=== PATIENT | female | born 1950 | race African-American/Black ===

== ENCOUNTER 2016-11-14 07:04 | Inpatient (IN) ==
--- NOTE | 2016-11-14 07:40 | EKG Report ---
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
[2016-11-14 07:44] LABS: Basophils % 0.4 % (0.0-0.8); Eosinophils # 0.2 10*3/uL (0.0-0.87); Eosinophils % 2.1 % (0.00-10.9); Hematocrit 35.6 VOL% (35.7-47.0); Hemoglobin 11.8 GM/DL (12.0-16.0); Immature Granulocytes % 0.4 %; Immature Granulocytes Absolute 0.04 #; Lymphocytes # 1.1 10*3/uL (1.4-4.0); Lymphocytes % 10.1 % (21.3-54.2); Mean Corpuscular HGB Conc 33.1 GM/DL (32-36); Mean Corpuscular Hemoglobin 32 PG (27-34); Mean Corpuscular Volume 95.2 FL (87-102); Mean Platelet Volume 10.7 FL (9.6-12.0); Monocytes # 0.7 10*3/uL (0.11-0.8); Monocytes % 6.1 % (1.7-12.7); Neutrophils # 9.1 10*3/uL (1.4-7.4); Neutrophils % 80.9 % (38.7-73.9); Platelet Count 207 T/CUMM (130-400); Red Blood Count 3.74 MC/CUMM (3.8-5.5); Red Cell Distribution Width 14.6 % (9.3-17.3); White Blood Count 11.2 T/CUMM (4-12)
--- NOTE | 2016-11-14 08:06 | XRay Report ---
2 view chest. Indication: Chest pain. Shortness of breath. Cough. Comparison: March 12, 2016. The heart is enlarged. There is a calcified granuloma in the left midlung field. The pulmonary vasculature is prominent. The interstitial lung markings are prominent. No definite pleural effusion. Stable osseous structures. Impression: Cardiomegaly, venous congestion, and interstitial edema. PROCEDURE INTERPRETED AT [facility] DEPARTMENT OF RADIOLOGY Final Report Signed by: Dr. Antonia Alfaro
[2016-11-14] MEDS ORDERED: ASPIRIN 325 MG TABLET PO STA (08:10)
[2016-11-14] MEDS ORDERED: ENOXAPARIN 100 MG/ML SYRINGE SUBCUT STA (08:10)
[2016-11-14 08:17] LABS: Alanine Aminotransferase 18 U/L (13-56); Albumin 3.4 G/DL (3.4-5.0); Alkaline Phosphatase 339 U/L (45-117); Aspartate Amino Transferase 33 U/L (0-37); Blood Urea Nitrogen 30 MG/DL (7-18); Calcium 8.1 MG/DL (8.5-10.1); Glucose 183 MG/DL (74-106); Magnesium 3.1 MG/DL (1.8-2.4); Osmolality,Calculated 285.7 MOS/KG (273-304); Potassium 5.4 MMOL/L (3.5-5.1); Sodium 138 MMOL/L (136-145); Total Protein 7.7 G/DL (6.4-8.3); Troponin I Only < 0.015 NG/ML (0.00-0.045)
[2016-11-14] MEDS ORDERED: ENOXAPARIN 120 MG/0.8 ML SYRINGE SUBCUT ONE (08:18)
[2016-11-14] MEDS ORDERED: ASPIRIN 325 MG TABLET ONE (08:19)
--- NOTE | 2016-11-14 08:57 | Emergency Department Note ---
Luis Castano Mantricia, am scribing for, and in the presence of, Charli Turner MD 08:25. Yue Castano Phillip K, MD, personally performed the services described in this documentation, ascribed by Greg Smith in my presence, and it is both accurate and complete [id number] . Arrival - Arrival Chief Complaint: Shortness of Breath Stated Complaint: SOB/tightness in chest ED Nursing Triage Note: PT C/O SHORTNESS OF BREATH, PRODUCTIVE COUGH WITH YELLOW SPUTUM, AND CHEST TIGHTNESS SINCE LAST NIGHT. PT GIVEN ANTIBIOTICS LAST WEEK BY DR TERAN. PT STATES HER B/P HAS BEEN ELEVATED AT DIALYSIS THIS WEEK. PT HAS DIALYSIS TODAY AT 1100. Mode of Arrival: Stretcher Limitations: No Limitations Source: Patient Time Seen by Provider: 11/14/16 07:43 - History of Present Illness HPI Narrative: Pt is a 66 y/o black female arriving o ED with c/o SOB that onset last night. She states that she awaken from her sleep not able to breathe so she had to sit up to get some relief. She also reports a productive cough with yellow sputum, midsternal chest tightness, and N/V. She has a PMHx of CHF, IDDM, and HTN. Pt dialyzes every M// and has an appointment at 1100 to dialyze today. She reports no other complaints to ED. Onset (ago): hour(s) Consistency: constant Allergies/Adverse Reactions: Allergies Allergy/AdvReac Type Severity Reaction Status Date / Time Iodinated Contrast Media - Allergy BLISTER Verified 11/14/16 07:20 Oral and [Iodinated Contrast Media - IV Dye] Home Medications: Home Medications Medication Instructions Recorded Confirmed Type Allopurinol 300 mg PO DAILY 03/12/16 03/12/16 History Amlodipine Besylate 10 mg PO DAILY 03/12/16 03/12/16 History Aspirin [Ecotrin] 81 mg PO DAILY 03/12/16 03/12/16 History Carvedilol [Coreg] 25 mg PO BID 03/12/16 03/12/16 History Cinacalcet [Sensipar] 30 mg PO DAILY 03/12/16 03/12/16 History Gabapentin 100 mg PO TID 03/12/16 03/12/16 History Insulin Aspart Prot/Asp 70/30 18 unit SUBCUT TID 03/12/16 03/12/16 History [NovoLOG Mix 70/30] Omeprazole 20 mg PO DAILY 03/12/16 03/12/16 History Cyn9593/Sod Sulf,Bicarb,Cl/KCl 4,000 ml PO ONCE #1 soln.recon 03/12/16 Rx [Golytely Solution] Sevelamer Carbonate Tab [Renvela 800 mg PO BID 03/12/16 03/12/16 History Tab] Sevelamer Carbonate Tab [Renvela 800 mg PO TID W/MEALS 03/12/16 03/12/16 History Tab] Travoprost 0.004% Oph Soln 1 drop BOTH EYES BEDTIME 03/12/16 03/12/16 History [Travatan Z] metOLazone [Metolazone] 5 mg PO BID 03/12/16 03/12/16 History traMADol TAB [Ultram] 100 mg PO BID 03/12/16 03/12/16 History Review of System - Review of System 12 point system: reviewed and no additional remarkable complaints except as stated - Review of System Constitutional: Absent: chills, diaphoresis Eyes: Absent: discharge, pain Respiratory: Present: cough (with yellow sputum) Cardiovascular: Present: chest pain (tightness), dyspnea on exertion Gastrointestinal: Present: nausea, vomiting. Absent: abdominal pain, diarrhea Medical,Surgical,& Family Hx - Medical History Cardio: History of: Hypertension Endocrine: History of: Diabetes Mellitus (IDDM) Renal: History of: Renal (Kidney) Cancer (CKD), Dialysis (M-W-F), Renal Failure - Surgical History Reproductive Surgeries: Surgical HX of;: Hysterectomy - Social History Smoking Status: Never smoker Frequency of Alcohol Use: None Type of Drug Use: None Exam Vital Signs: Vital Signs Temperature 97.8 F 11/14/16 07:38 Pulse Rate 67 11/14/16 07:38 Respiratory Rate 18 11/14/16 07:38 Blood Pressure 143/63 11/14/16 07:38 O2 Sat by Pulse Oximetry 95 11/14/16 07:16 - General General appearance: alert, in no apparent distress - Head Head exam: Present: atraumatic, normocephalic, normal inspection - Eye Eye exam: Present: normal appearance, PERRL, EOMI - ENT ENT exam: Present: normal exam, normal oropharynx, mucous membranes moist, TM's normal bilaterally, normal external ear exam - Neck Neck exam: Present: normal inspection, full ROM, trachea midline. Absent: tenderness - Chest Chest inspection: Present: normal inspection, symmetric chest wall rise. Absent : tenderness - Respiratory Respiratory exam: Present: rales - Cardiovascular Cardiovascular exam: Present: regular rate, normal heart sounds - Abdominal Exam Abdominal exam: Present: soft, normal bowel sounds. Absent: distention, tenderness, guarding, rebound - Extremities Exam Extremities exam: Present: normal inspection, full ROM, normal capillary refill , other (trace edema bilat LE). Absent: tenderness - Back Exam Back exam: Present: normal inspection, full ROM. Absent: tenderness - Neurological Exam Neurological exam: Present: alert, oriented X3, CN II-XII intact, normal gait, reflexes normal - Psychiatric Psychiatric exam: Present: normal affect, normal mood - Skin Skin exam: Present: warm, dry, intact, normal color Course Course Narrative: Patient discussed with Dr. Teran. Results - Labs CBC & BMP: 11/14/16 07:27 11/14/16 07:27 Lab Results: I have reviewed the patients labs (Cardiac enzymes are negative) - EKG EKG results: interpreted by ERMD, sinus rhythm (Nonspecific ST-T changes inferiorly) - Diagnostic Findings Procedure: Chest x-ray: report reviewed by me (Cardiomegaly, venous congestion, and interstitial edema. ) Disposition Clinical Impression: Chest pain, Congestive heart failure, End stage renal disease on dialysis Case discussed with: patient Disposition: Still a Patient Condition: Guarded Additional Instructions: Admit to Dr. Teran
[2016-11-14] MEDS ORDERED: ACETAMINOPHEN 325 MG TABLET PO PRN (09:01)
[2016-11-14] MEDS ORDERED: ONDANSETRON 4 MG/2 ML VIAL IV PRN (09:01)
--- NOTE | 2016-11-14 11:19 | EKG Report ---
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
--- NOTE | 2016-11-14 12:38 | Internal Med History&Physical ---
Assessment and Plan (1) Chest pain Status: Acute Assessment and plan: 66-year-old female who is admitted to acute care * Chest pain. Patient has pressure type chest pain which has been going on for 2 weeks. She has associated shortness of breath. Her pain is atypical but she has multiple risk factors. She is followed by Dr. Krause. Will consult cardiology to evaluate her. Her initial 2 troponins were negative. Her BNP is elevated. She appears to be in mild fluid overload. Today is her regular dialysis day * Chronic renal failure. On hemodialysis Saturday and Fridays. Will consult Dr. Thien valdez. Her BNP was high. * Diabetes. Will continue her insulin and start her on a sliding scale * Hypertension. Will continue her medication * Obstructive sleep apnea. She has stopped using her CPAP. Will consult Dr. Hewitt * She had upper respiratory infection last week and got some antibiotics. She feels better. * Discussed with the patient Current Visit: Yes (2) Diabetes Status: Acute Current Visit: Yes (3) Hypertension Status: Acute Current Visit: Yes (4) Obstructive sleep apnea Status: Acute Current Visit: Yes (5) Morbid obesity Status: Acute Current Visit: Yes (6) Congestive heart failure Status: Acute Current Visit: Yes (7) End stage renal disease on dialysis Status: Acute Current Visit: Yes History of Present Illness Chief complaint: Chest pressure and shortness of breath History of present illness: Ms. Carney is a 66 year old female with history of multiple medical problems including nonobstructive coronary artery disease, congestive heart failure, hypertension, insulin-dependent diabetes, chronic renal failure on hemodialysis 3 times a week. She presented to the emergency room with chest pressure and pain off and on for 2 weeks. She describes it as somebody sitting on her chest last night. She did not take any medications for it. She is also complaining of coughing up yellowish productive sputum. She was on antibiotics last week. Her blood pressure has been elevated during dialysis this week. She has history of obstructive sleep apnea but stopped using her CPAP about 4 months ago. She states that she was sleeping better and thought that she did not need it anymore. She denies any chest pain on exertion. She denies any nausea vomiting or diarrhea. Home Medications Medication Instructions Recorded Confirmed Type Allopurinol 300 mg PO DAILY 03/12/16 11/14/16 History Amlodipine Besylate 10 mg PO DAILY 03/12/16 11/14/16 History Aspirin [Ecotrin] 81 mg PO DAILY 03/12/16 11/14/16 History Carvedilol [Coreg] 25 mg PO BID 03/12/16 11/14/16 History Cinacalcet [Sensipar] 90 mg PO DAILY 03/12/16 11/14/16 History Gabapentin 100 mg PO TID 03/12/16 11/14/16 History Insulin Aspart Prot/Asp 70/30 18 unit SUBCUT TID 03/12/16 11/14/16 History [NovoLOG Mix 70/30] Omeprazole 20 mg PO DAILY 03/12/16 11/14/16 History Travoprost 0.004% Oph Soln 1 drop BOTH EYES BEDTIME 03/12/16 11/14/16 History [Travatan Z] traMADol TAB [Ultram] 100 mg PO BID PRN 03/12/16 11/14/16 History Furosemide [Furosemide] 80 mg PO BID 11/14/16 11/14/16 History Sevelamer Carbonate Tab [Renvela 3 tablet PO TID W/MEALS 11/14/16 11/14/16 History Tab] Allergies Allergy/AdvReac Type Severity Reaction Status Date / Time Iodinated Contrast Media - Allergy BLISTER Verified 11/14/16 07:20 Oral and [Iodinated Contrast Media - IV Dye] Medical,Surgical,& Family Hx - Medical History Cardio: History of: CHF, CAD (Nonobstructive), Hypertension, Cardiovascular Problems Endocrine: History of: Diabetes Mellitus (IDDM), Dyslipidemia, Endocrine Problems (Morbid obesity) Respiratory: History of: Obstructive Sleep Apnea (Not using CPAP for last 4 months) Renal: History of: Renal (Kidney) Cancer (CKD), Dialysis (M-W-F), Renal Failure Gastrointestinal: History of: GERD - Surgical History Reproductive Surgeries: Surgical HX of;: Hysterectomy - Family History Family History: Reports;: Family Diabetes, Family Heart Disease, Family Hypertension - Social History Smoking Status: Never smoker Frequency of Alcohol Use: None Type of Drug Use: None Functional capacity: independent ambulation 12 point system: reviewed and no additional remarkable complaints except as stated (As mentioned in HPI) Exam - Constitutional Vitals: Period Temp Pulse Resp BP Sys/Parish Pulse Ox Last 24 Hr 97.8 F-97.9 F 67-68 18-18 143-170/63-83 93-95 Exam: Examination: GENERAL: Morbidly obese -[place] African female who is in no acute distress HEENT: PERRLA. EOMI. Mucous membranes are moist. NECK: Neck is supple. No JVD. No carotid bruit. No thyromegaly. CVS: Regular rate and rhythm. S1 and S2 are normal. RESPIRATORY: Lungs are clear. No rales or rhonchi. ABDOMEN: Soft and nontender. Bowel sounds are present. No hepatosplenomegaly. EXT: No edema. Peripheral pulses are present. INDUSTRIAL INSULATOR: Patient is awake, alert and oriented to time place and person. Cranial nerves II through XII are grossly intact. Motor strength is 5 over 5 both upper and lower extremities. SKIN: Warm and dry. MSK: No obvious deformity. Results - Labs CBC & BMP: 11/14/16 07:27 11/14/16 07:27 Lab Results: I have reviewed the past 24 hour labs
--- NOTE | 2016-11-14 14:16 | Nephrology Consult Note ---
History of Present Illness Chief complaint: ESRD History of present illness: Ms. Carney is a 66 year old female who is been dialyzing for approximately 2 years and presented today with some vague chest discomfort that seemed to improve after she vomited this morning. She has had no significant shortness of breath she does not describe a history of angina. Past history is as detailed in the H&P. Chest x-ray without significant volume overload Impression end-stage renal disease #2 atypical chest pain Plan hemodialysis today and Saturday. Home Medications Medication Instructions Recorded Confirmed Type Allopurinol 300 mg PO DAILY 03/12/16 11/14/16 History Amlodipine Besylate 10 mg PO DAILY 03/12/16 11/14/16 History Aspirin [Ecotrin] 81 mg PO DAILY 03/12/16 11/14/16 History Carvedilol [Coreg] 25 mg PO BID 03/12/16 11/14/16 History Cinacalcet [Sensipar] 90 mg PO DAILY 03/12/16 11/14/16 History Gabapentin 100 mg PO TID 03/12/16 11/14/16 History Insulin Aspart Prot/Asp 70/30 18 unit SUBCUT TID 03/12/16 11/14/16 History [NovoLOG Mix 70/30] Omeprazole 20 mg PO DAILY 03/12/16 11/14/16 History Travoprost 0.004% Oph Soln 1 drop BOTH EYES BEDTIME 03/12/16 11/14/16 History [Travatan Z] traMADol TAB [Ultram] 100 mg PO BID PRN 03/12/16 11/14/16 History Furosemide [Furosemide] 80 mg PO BID 11/14/16 11/14/16 History Sevelamer Carbonate Tab [Renvela 3 tablet PO TID W/MEALS 11/14/16 11/14/16 History Tab] Allergies Allergy/AdvReac Type Severity Reaction Status Date / Time Iodinated Contrast Media - Allergy BLISTER Verified 11/14/16 07:20 Oral and [Iodinated Contrast Media - IV Dye] Medical,Surgical,& Family Hx - Medical History Cardio: History of: CHF, CAD (Nonobstructive), Hypertension, Cardiovascular Problems Endocrine: History of: Diabetes Mellitus (IDDM), Dyslipidemia, Endocrine Problems (Morbid obesity) Respiratory: History of: Obstructive Sleep Apnea (Not using CPAP for last 4 months) Renal: History of: Renal (Kidney) Cancer (CKD), Dialysis (M-W-F), Renal Failure Gastrointestinal: History of: GERD - Surgical History Reproductive Surgeries: Surgical HX of;: Hysterectomy - Family History Family History: Reports;: Family Diabetes, Family Heart Disease, Family Hypertension - Social History Smoking Status: Never smoker Frequency of Alcohol Use: None Type of Drug Use: None Exam - Vital Signs Vital signs: Period Temp Pulse Resp BP Sys/Parish Pulse Ox Last 24 Hr 97.8 F-97.9 F 67-68 18-18 143-170/63-83 93-95 - General Appearance General appearance: well-developed, well-nourished, appears started age Neck: no JVD, no thyromegaly, no carotid bruit, supple Respiratory: no kyphosis, no scoliosis Cardiology: no murmurs, no rub, no gallops, no edema, regular rate, regular rhythm, normal S1, normal S2 Integumentary: no rash, warm and dry Neurologic: no focal deficit, no asterixis, alert and oriented x3, reflexes 2+ and symmetric, gait normal, strength 5/5 Musculoskeletal: no deformities, no erythema, no cyanosis, no clubbing Psychiatric: mood/affect appropriate, cooperative Results - Labs CBC & BMP: 11/14/16 07:27 11/14/16 07:27 Assessment and Plan - Time spent with patient Time spent with patient: Less than 30 minutes (ESRD) Specialty Discharge - Follow Up or Referrals - Speciality Discharge Instructions Nephrology Instructions: Dialysis today.
--- NOTE | 2016-11-14 14:20 | Dialysis Note ---
Dialysis Note - Dialysis Note Ms. Felder is seen during her hemodialysis. She is having no chest pain tolerating dialysis well.
--- NOTE | 2016-11-14 14:45 | EKG Report ---
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
[2016-11-14] MEDS: GABAPENTIN 100 MG CAPSULE PO SCH ×2 (16:12→20:26)
[2016-11-14] MEDS: INSULIN ASPART PROTAMINE/ASPART 70/30 100 UNIT/ML SUBCUT SCH ×2 (16:12→20:35)
--- NOTE | 2016-11-14 17:27 | Cardiology Consult Note ---
Montserrat Castano April RN, am scribing for, and in the presence of, Thien Abarca MD 17:22. Assessment and Plan - Time spent with patient Time spent with patient: Greater than 30 minutes (Due to assessment, planning, documentation, medication review) (1) Chest pain Status: Acute Assessment and plan: 1. 66-year-old significantly overweight BF with hypertension, diabetes, MITCHELL ( off CPAP for several months), ESRD, nonischemic cardiomyopathy with EF 41% in 2010 when she had no ischemia on myocardial scan (Dr. krause) who presents with over week of cough with dyspnea on exertion and then several hours of constant chest discomfort last night worsened by lying on her back "like an elephant on my chest" 2. She is ruled out for myocardial infarction and has no acute EKG changes 3. She now has fever (100.7) and her chest discomfort got better with coughing this morning 4. Check echocardiogram to evaluate for significant structural heart disease; she had at least moderate pulmonary hypertension and years past. Current Visit: Yes (2) Diabetes Status: Chronic Current Visit: Yes (3) End stage renal disease on dialysis Status: Chronic Current Visit: Yes (4) Hypertension Status: Chronic Current Visit: Yes (5) Morbid obesity Status: Chronic Current Visit: Yes (6) Obstructive sleep apnea Status: Chronic Current Visit: Yes History of Present Illness - Data of Consult Patient: known to practice within the last 3 years Consult date: 11/14/16 Requesting Physician: Charli Turner - Consult Narrative Reason for consult: Chest tightness History of present illness: Behavioral Health Counselor: Dr. Krause Ms. Carney is a 66 year old female who last saw Dr. Krause in the hospital in February 2014. She has a history of nonobstructive coronary artery disease, congestive heart failure, hypertension, IDDM, chronic renal failure (dialyzes Saturday) and obstructive sleep apnea (she does not wear her CPAP ). Heart cath done 01/24/2004 showed 30-40% mid stenosis of dominant RCA with all other vessels widely patent. Other surgeries include bilateral cataracts, hysterectomy, and for dialysis access. Family history is positive for siblings with renal failure, siblings with diabetes, siblings with hypertension, father with stroke, and mother with hypertension. She reports she is a lifetime non- smoker. She reports having a heaviness in the center of her chest as well as a productive cough for the last week. Last night her chest heaviness became worse and she became short of breath. She reports all last week the pain would come and go, but last night it was a constant pain. She rates it was a 7 on a scale of 1-10 last night. She denies any radiation, it is not reproducible. She denies any triggers or alleviators except that he did get better after she coughed up some mucus this morning. Her shortness of breath she says is significantly worse with exertion and she also reports orthopnea. Stating she had to sleep sitting at last night. She presented emergency department for further evaluation. EKG showed sinus rhythm with heart rate of 64. Chest x- ray showed cardiomegaly, venous congestion, and interstitial edema. She is being seen today in dialysis, creatinine 6.70, potassium 5.4. Troponin has been negative 2. BNP 535. She is currently wearing oxygen via nasal cannula and states her shortness of breath is much improved. She says her chest heaviness was completely relieved earlier, but she is having some discomfort now that she rates a 4 on a scale of 1-10. She says her blood pressure has been elevated some at home the last couple days, it was 170/83 at last check. CC: Sean Teran MD - Home Medications and Allergies Home Medications: Home Medications Medication Instructions Recorded Confirmed Type Allopurinol 300 mg PO DAILY 03/12/16 11/14/16 History Amlodipine Besylate 10 mg PO DAILY 03/12/16 11/14/16 History Aspirin [Ecotrin] 81 mg PO DAILY 03/12/16 11/14/16 History Carvedilol [Coreg] 25 mg PO BID 03/12/16 11/14/16 History Cinacalcet [Sensipar] 90 mg PO DAILY 03/12/16 11/14/16 History Gabapentin 100 mg PO TID 03/12/16 11/14/16 History Insulin Aspart Prot/Asp 70/30 18 unit SUBCUT TID 03/12/16 11/14/16 History [NovoLOG Mix 70/30] Omeprazole 20 mg PO DAILY 03/12/16 11/14/16 History Travoprost 0.004% Oph Soln 1 drop BOTH EYES BEDTIME 03/12/16 11/14/16 History [Travatan Z] traMADol TAB [Ultram] 100 mg PO BID PRN 03/12/16 11/14/16 History Furosemide [Furosemide] 80 mg PO BID 11/14/16 11/14/16 History Sevelamer Carbonate Tab [Renvela 3 tablet PO TID W/MEALS 11/14/16 11/14/16 History Tab] Allergies/Adverse Reactions: Allergies Allergy/AdvReac Type Severity Reaction Status Date / Time Iodinated Contrast Media - Allergy BLISTER Verified 11/14/16 07:20 Oral and [Iodinated Contrast Media - IV Dye] - Constitutional Constitutional: Present: as per HPI - EENT Eyes: Present: requires corrective lense. Absent: blurry vision Ears: Absent: decreased hearing, ear pain, tinnitus Nose, mouth and throat: Present: headache(s), sore throat. Absent: epistaxis, neck pain - Cardiovascular Cardiovascular: Present: chest pain at rest, chest pain with activity, dyspnea, dyspnea on exertion, edema, orthopnea, palpitations. Absent: diaphoresis, radiating jaw, neck or arm pain, lightheadedness - Respiratory Respiratory: Present: cough, dyspnea, dyspnea on exertion, wheezing. Absent: hemoptysis - Gastrointestinal Gastrointestinal: Absent: abdominal pain, constipation, diarrhea, hematemesis, hematochezia, melena, nausea, vomiting - Genitourinary Genitourinary: Absent: dysuria, hematuria - Musculoskeletal Musculoskeletal: Present: back pain, limited range of motion, muscle weakness - Neurological Neurological: Present: abnormal gait, frequent falls, headache(s). Absent: confusion, dizziness, syncope - Psychiatric Psychiatric: Absent: anxiety, depression - Endocrine Endocrine: Present: fatigue - Hematologic/Lymphatic Hematologic/Lymphatic: Present: easy bruising. Absent: easy bleeding Medical,Surgical,& Family Hx - Medical History Cardio: History of: CHF, CAD (Nonobstructive), Hypertension Endocrine: History of: Diabetes Mellitus (IDDM), Dyslipidemia Respiratory: History of: Obstructive Sleep Apnea (Not using CPAP for last 4 months) Renal: History of: Renal (Kidney) Cancer (CKD), Dialysis (M-W-), Renal Failure Gastrointestinal: History of: GERD - Surgical History Cardiac Surgeries: Sugical HX of: Cardiac Catheterization (2003) HEENT Surgeries: Surgical HX of: Eye Surgery (Bilateral cataract) Reproductive Surgeries: Surgical HX of;: Hysterectomy - Family History Family History: Reports;: Family Diabetes (Siblings), Family Hypertension ( Mother and siblings), Family Stroke - Social History Smoking Status: Never smoker Have you smoked in the last 12 months: No Frequency of Alcohol Use: None Type of Drug Use: None Marital Status: Lives With:: Spouse Functional capacity: uses cane/walker Physical Examination Vital Signs Temp Pulse Resp BP Pulse Ox 97.8 F 67 18 143/63 95 11/14/16 07:16 11/14/16 07:16 11/14/16 07:16 11/14/16 07:16 11/14/16 07:16 General: Present: Appears Well, No Apparent Distress HEENT: Present: PERRL, Mucus Membranes Moist Neck: Present: Supple Neck, Midline Trachea, No Bruit Cardiac: Present: Reg Rate and Rhythm, No Murmur Lungs: Present: Normal Breath Sounds, Oxygen (Via nasal cannula), No Wheeze, Rales, Rhonchi Neuro: Absent: Resting Tremor, Essential Tremor Abdomen: Present: Soft, Active Bowel Sounds, Non-Tender. Absent: Distended Skin: Absent: Rash, Suspicious Lesions Musculoskeletal: Present: Decreased Range of Motion, Pain in Joint Gait: Present: Poor Gait Extremities: Present: Normal Upper Extr. Pulses, Normal Lower Extr. Pulses, Edema (Trace to bilateral lower extremities). Absent: Normal Gait Result/EKG - Labs CBC & BMP: 11/14/16 07:27 11/14/16 07:27 Lab Results: I have reviewed the past 24 hour labs Labs: Laboratory Results - last 24 hr 11/14/16 11/14/16 11/14/16 07:27 07:27 07:27 WBC 11.2 RBC 3.74 L Hgb 11.8 L Hct 35.6 L MCV 95.2 MCH 32 MCHC 33.1 RDW 14.6 Plt Count 207 MPV 10.7 Neut % (Auto) 80.9 H Lymph % (Auto) 10.1 L [place] % (Auto) 6.1 Eos % (Auto) 2.1 Baso % (Auto) 0.4 Neut # (Auto) 9.1 H Lymph # (Auto) 1.1 L [place] # (Auto) 0.7 Eos # (Auto) 0.2 Baso # (Auto) 0.0 Immature Gran % 0.4 Nucleated RBC % 0.0 Immature Gran # 0.04 Nucleated RBCs # 0.00 Sodium 138 Potassium 5.4 H Chloride 97 L Carbon Dioxide 32 Anion Gap 14.4 BUN 30 H Creatinine 6.70 H GFR Calculation 8 BUN/Creatinine Ratio 4.00 L Glucose 183 H Calculated Osmolality 285.7 Calcium 8.1 L Magnesium 3.1 H Total Bilirubin 0.50 AST 33 ALT 18 Alkaline Phosphatase 339 H Total Creatine Kinase 130 CK-MB (CK-2) < 1.0 Troponin I < 0.015 B-Natriuretic Peptide 535 H Total Protein 7.7 Albumin 3.4 Globulin 4.3 H Albumin/Globulin Ratio 0.7 L 11/14/16 10:54 WBC RBC Hgb Hct MCV MCH MCHC RDW Plt Count MPV Neut % (Auto) Lymph % (Auto) [place] % (Auto) Eos % (Auto) Baso % (Auto) Neut # (Auto) Lymph # (Auto) [place] # (Auto) Eos # (Auto) Baso # (Auto) Immature Gran % Nucleated RBC % Immature Gran # Nucleated RBCs # Sodium Potassium Chloride Carbon Dioxide Anion Gap BUN Creatinine GFR Calculation BUN/Creatinine Ratio Glucose Calculated Osmolality Calcium Magnesium Total Bilirubin AST ALT Alkaline Phosphatase Total Creatine Kinase CK-MB (CK-2) Troponin I < 0.015 B-Natriuretic Peptide Total Protein Albumin Globulin Albumin/Globulin Ratio - Diagnostic Findings Procedure: Chest x-ray: report reviewed by me - EKG EKG results: interpreted by me EKG shows: sinus rhythm Tevin Castano Randall Scott, MD, personally performed the services described in this documentation, ascribed by Sienna Mariano RN in my presence, and it is both accurate and complete 727 .
[2016-11-14] MEDS: SEVELAMER CARBONATE 800 MG TABLET PO SCH (17:40)
[2016-11-14] MEDS: TRAVOPROST 0.004% OPH SOLN 2.5 ML BOTTLE BOTH EYES SCH (20:27)
[2016-11-14] MEDS: FUROSEMIDE 80 MG TABLET PO SCH (20:27)
[2016-11-14] MEDS: DOCUSATE SODIUM 100 MG CAPSULE PO SCH (20:27)
[2016-11-14] MEDS: CARVEDILOL 25 MG TABLET PO SCH (20:27)
[2016-11-14] MEDS: traMADol 50 MG TABLET PO PRN (20:31)
[2016-11-15] MEDS ORDERED: NON-FORMULARY MEDICATION (Omeprazole [Omeprazole] 20 MG) PO SCH (09:00)
--- NOTE | 2016-11-15 09:28 | Internal Med Progress Note ---
Assessment and Plan (1) Chest pain Status: Acute Assessment and plan: 66-year-old female who is admitted to acute care * Chest pain. Cardiology is evaluating patient. She will have echocardiogram * Chronic renal failure. Dialysis was done yesterday * Patient has been running a low-grade fever. Will do blood cultures and start her empirically on antibiotics. We will also check sinus x-rays * Diabetes. Will continue her insulin and start her on a sliding scale * Hypertension. Will continue her medication * Obstructive sleep apnea. She has stopped using her CPAP. Will consult Dr. Hewitt * She had upper respiratory infection last week and got some antibiotics. She feels better. * Discussed with the patient Current Visit: Yes (2) Diabetes Status: Chronic Current Visit: Yes (3) Hypertension Status: Chronic Current Visit: Yes (4) Obstructive sleep apnea Status: Chronic Current Visit: Yes (5) Morbid obesity Status: Chronic Current Visit: Yes (6) Congestive heart failure Status: Acute Current Visit: Yes (7) End stage renal disease on dialysis Status: Chronic Current Visit: Yes Internal Medicine - PN: Subj Interval history: She is feeling better today. She denies any chest pain or shortness of breath. Denies any nausea or vomiting. She has a headache. Exam (Progress Note) - Constitutional Vitals: Period Temp Pulse Resp BP Sys/Parish Pulse Ox Last 24 Hr 97.2 F-100.8 F 68-83 16-21 142-184/68-83 91-95 Exam: Examination: GENERAL: no acute distress NECK: Neck is supple. CVS: Regular rate and rhythm. S1 and S2 are normal. RESPIRATORY: Lungs are clear. Decreased air entry at the base ABDOMEN: Soft and nontender. Bowel sounds are present. No hepatosplenomegaly. EXT: No edema. Peripheral pulses are present. RUNNER OUT: Nonfocal MSK: No obvious deformity. Results - Labs CBC & BMP: 11/14/16 07:27 11/14/16 07:27 Lab Results: I have reviewed the past 24 hour labs
--- NOTE | 2016-11-15 09:31 | XRay Report ---
Exam: XR sinus Date: 11/15/2016 7:57 AM Comparison: 02/16/2014 Indication: Fever and congestion Technique:[3 view paranasal sinuses Findings: Minimal mucosal thickening in the floor of the left maxillary sinus with no significant air-fluid levels.] Metallic clips are noted overlying the skull. Impression: Minimal mucosal thickening in the floor of the left maxillary sinus with no significant air-fluid levels. PROCEDURE INTERPRETED AT [facility] DEPARTMENT OF RADIOLOGY Final Report Signed by: Dr. Ana Garcia
[2016-11-15] MEDS: GABAPENTIN 100 MG CAPSULE PO SCH ×3 (09:32→21:00)
[2016-11-15] MEDS: CINACALCET 30 MG TABLET PO SCH (09:32)
[2016-11-15] MEDS: ALLOPURINOL 300 MG TABLET PO SCH (09:32)
[2016-11-15] MEDS: AZITHROMYCIN 250 MG TABLET PO SCH (09:33)
[2016-11-15] MEDS: PANTOPRAZOLE 40 MG TABLET PO SCH (09:34)
[2016-11-15] MEDS: amLODIPine 10 MG TABLET PO SCH (09:34)
[2016-11-15] MEDS: DOCUSATE SODIUM 100 MG CAPSULE PO SCH ×2 (09:34→20:59)
[2016-11-15] MEDS: CARVEDILOL 25 MG TABLET PO SCH ×2 (09:34→21:00)
[2016-11-15] MEDS: ASPIRIN EC 81 MG TABLET PO SCH (09:34)
[2016-11-15] MEDS: FUROSEMIDE 80 MG TABLET PO SCH (09:34)
[2016-11-15] MEDS: SEVELAMER CARBONATE 800 MG TABLET PO SCH ×4 (09:37→16:55)
[2016-11-15] MEDS: cefTRIAXone 1,000 MG in SODIUM CHLORIDE 0.9% 100 ML IV SCH (09:38)
[2016-11-15] MEDS: INSULIN ASPART PROTAMINE/ASPART 70/30 100 UNIT/ML SUBCUT SCH ×3 (09:49→21:01)
--- NOTE | 2016-11-15 11:15 | Cardiology Progress Note ---
<Antonia Way - Last Filed: 11/15/16 10:47> Assessment and Plan (1) Chest pain Status: Resolved Assessment and plan: SEE PLAN OF CARE LISTED BELOW. Current Visit: Yes (2) Diabetes Status: Chronic Assessment and plan: SEE PLAN OF CARE LISTED BELOW. Current Visit: Yes (3) End stage renal disease on dialysis Status: Chronic Assessment and plan: SEE PLAN OF CARE LISTED BELOW. Current Visit: Yes (4) Hypertension Status: Chronic Current Visit: Yes (5) Morbid obesity Status: Chronic Assessment and plan: SEE PLAN OF CARE LISTED BELOW. Current Visit: Yes (6) Obstructive sleep apnea Status: Chronic Assessment and plan: SEE PLAN OF CARE LISTED BELOW. Current Visit: Yes (7) Fever Status: Acute Assessment and plan: SEE PLAN OF CARE LISTED BELOW. Current Visit: Yes Cardiology - PN: Subj Interval history: Molecular Biology Director: Dr. Krause SUMMARY : Ms. Carney is a 66 year old female who last saw Dr. Krause in the hospital in February 2014. She has a history of nonobstructive coronary artery disease, congestive heart failure, hypertension, IDDM, chronic renal failure (dialyzes Saturday) and obstructive sleep apnea (she does not wear her CPAP). Heart cath done 01/24/2004 showed 30-40% mid stenosis of dominant RCA with all other vessels widely patent. She reports she is a lifetime non-smoker. She presented to [facility] November UPDATE: Patient was seen and examined on telemetry unit. She appears to be doing well this morning. Upon entering the room, she was lying flat in bed in no acute distress. She denies chest pain, heaviness and tightness. Cardiac biomarkers have been negative overnight. Patient is ruled out for myocardial infarction. EKG is without significant changes. Overnight, she had a low-grade fever. No leukocytosis noted. Blood cultures are currently pending. She underwent sinus x-ray this morning and was started on antibiotics per attending. Patient underwent echocardiogram which revealed normal LV systolic function with ejection fraction of 60%. Blood pressure is suboptimally controlled. I have added hydralazine to patient's medication regimen. Will further adjust as needed throughout hospitalization. I will discuss further with Dr. Abarca and await his recommendations. ASSESSMENT/PLAN: 1. ATYPICAL CHEST PAIN - Currently without chest pain, heaviness and tightness. Cardiac biomarkers have remained negative and EKG is unchanged. Patient is ruled out for DC. This is nonexertional. Worse with cough and laying on her back. Will further discuss with Dr. Caro and await his recommendations. 3. CHRONIC RENAL FAILURE ON DIALYSIS - Patient received hemodialysis yesterday. Nephrology is following. 4. DIABETES - Management per attending. 5. HYPERTENSION - Suboptimally controlled. Will adjust patient's medication regimen in order to achieve blood pressure control. 6. MITCHELL - She has stopped using CPAP machine. Dr. Ceballos has been consulted per attending. 7. FEVER - Patient had a fever of 100 overnight. No leukocytosis is noted. Agree with blood cultures, sinus x-rays and empirically treating with antibiotics. 8. OBESITY - Counseled patient on importance of weight loss. Exam (Progress Note) - Constitutional Vitals: Period Temp Pulse Resp BP Sys/Parish Pulse Ox Last 24 Hr 97.2 F-100.8 F 68-83 16-21 142-184/68-76 91-95 Exam: General: Appears well with no apparent distress. Pleasant and cooperative. Appears comfortable. HEENT: PERRL, normocephalic, atraumatic. Mucous membranes moist. No jaundice noted. Conjunctiva moist and clear, sclerae anicteric Neck: No JVD/HJR, no thyromegaly or lymphadenopathy noted. Cardiac: Regular rate and rhythm. No murmur rub or gallop. Lungs: Clear to auscultation without accessory muscle use to assist the respiratory pattern. Requiring oxygen via nasal cannula. Abdomen: Obese, soft, bowel sounds normoactive. Nontender and nondistended. Extremities: No clubbing, cyanosis noted. Trace edema noted. Upper extremity pulses 2+. Lower extremity pulses 2+. Capillary refill less than 3 seconds. Skin: No unusual lesions or rashes. No skin breakdown appreciated. Neuro: Awake, alert and oriented 3. Moves all extremities well without hemiparesis or paralysis. No essential tremor is appreciated. Result/EKG - Labs CBC & BMP: 11/14/16 07:27 11/14/16 07:27 Lab Results: I have reviewed the past 24 hour labs Labs: Laboratory Results - last 24 hr 11/14/16 11/14/16 11/14/16 10:54 14:40 15:57 POC Glucose 158 H Troponin I < 0.015 0.015 11/14/16 11/15/16 11/15/16 20:03 06:34 07:20 POC Glucose 135 H 138 H 132 H Troponin I <Thien Abarca - Last Filed: 11/15/16 11:24> Assessment and Plan (1) Chest pain Status: Resolved Current Visit: Yes (2) Diabetes Status: Chronic Current Visit: Yes (3) End stage renal disease on dialysis Status: Chronic Current Visit: Yes (4) Hypertension Status: Chronic Current Visit: Yes (5) Morbid obesity Status: Chronic Current Visit: Yes (6) Obstructive sleep apnea Status: Chronic Current Visit: Yes Exam (Progress Note) - Constitutional Vitals: Period Temp Pulse Resp BP Sys/Parish Pulse Ox Last 24 Hr 97.2 F-100.8 F 68-83 16-21 142-184/68-76 91-95 Result/EKG - Labs CBC & BMP: 11/14/16 07:27 11/14/16 07:27 Labs: Laboratory Results - last 24 hr 11/14/16 11/14/16 11/14/16 10:54 14:40 15:57 POC Glucose 158 H Troponin I < 0.015 0.015 11/14/16 11/15/16 11/15/16 20:03 06:34 07:20 POC Glucose 135 H 138 H 132 H Troponin I
--- NOTE | 2016-11-15 11:17 | ECHO Report ---
Jennifer Carney Exam Date: 11/15/2016 10:03 Referring Physician: Technologist: sanchez Wilks, RVT Age: 66 Ht (in): 62 Wt (lb): 307 Gender: F Exam Location: [facility] Echo Indications: Essential (primary) hypertension, Shortness of breath, End stage renal disease, Chest pain, unspecified, Morbid obesity, MITCHELL, Diabetes BP: 167 / 76 HR: 76 Rhythm: Sinus Technical Quality: IMPRESSIONS Technically difficult study Probable 1-2+ left atrial enlargement Probable 2+ concentric LVH Normal LV systolic function with ejection fraction is will be 60% 1+ mitral and tricuspid regurgitation with RVSP 50 mmHg plus RAP suggesting at least moderate pulmonary hypertension MEASUREMENTS (Male / Female) Normal Values 2D ECHO LV Diastolic Diameter PLAX 5.0 cm 4.2 - 5.9 / 3.9 - 5.3 cm LV Systolic Diameter PLAX 3.6 cm LV Fractional Shortening PLAX 28.9 % IVS Diastolic Thickness 1.5 cm 0.6 - 1.0 / 0.6 - 0.9 cm LVPW Diastolic Thickness 1.4 cm 0.6 - 1.0 / 0.6 - 0.9 cm RV Internal Dim ED PLAX 3.5 cm Aortic Root Diameter 3.4 cm LA Systolic Diameter LX 4.3 cm 3.0 - 4.0 / 2.7 - 3.8 cm DOPPLER TR Peak Velocity 352.0 cm/s TR Peak Gradient 49.6 mmHg FINDINGS Left Ventricle Right Ventricle Right Atrium Left Atrium Mitral Valve Aortic Valve Tricuspid Valve Pulmonic Valve Pericardium Aorta Thien Abarca (Electronically Signed) Final Date: 15 November 2016 11:16
[2016-11-15] MEDS: hydrALAZINE 25 MG TABLET PO SCH ×2 (11:37→21:00)
[2016-11-15] MEDS: traMADol 50 MG TABLET PO PRN ×2 (12:33→21:00)
--- NOTE | 2016-11-15 12:34 | Sleep Medicine Consult ---
Assessment and Plan (1) Obstructive sleep apnea Status: Chronic Assessment and plan: Given the severity of her obstructive sleep apnea in the past, she very likely still has significant sleep apnea. We will reassess her tonight with HST evaluation and follow-up on those results. I would like for her to get her CPAP machine to the hospital if family member could have that arranged. I explained to her that it was very likely that she still has significant sleep apnea and with her comorbidities, she needs to be treated if present. I did acknowledge that was significant weight loss, her sleep apnea may not be as severe as it used to be and she may not need the same amount of pressure or even supplemental oxygen with CPAP. However that needs to be confirmed. Current Visit: Yes (2) Diabetes Status: Chronic Assessment and plan: The prevalence rate for obstructive sleep apnea in patients with type 2 diabetes can be as high as 86%. Those patients with moderate to severe obstructive sleep apnea are at a greater risk for diabetic nephropathy and neuropathy. Compliance with CPAP therapy for these patients can lead to improvement in glycemic control and improvement in insulin sensitivity. Current Visit: Yes (3) Hypertension Status: Chronic Assessment and plan: The prevalence rate for obstructive sleep apnea patients with hypertension is 35 %. That rate can be as high as 80% in patients who require 4 or more medications for blood pressure control. Current Visit: Yes (4) Congestive heart failure Status: Acute Assessment and plan: Untreated sleep apnea certainly can be an exacerbating factor of CHF. Controlling obstructive sleep apnea in patients can decrease readmission to the hospital and has been shown to improve ejection fraction in those with systolic heart dysfunction. Current Visit: Yes History of Present Illness Chief complaint: Sleep apnea History of present illness: Ms. Carney is a 66 year old female diagnosed with obstructive sleep apnea several years ago. She has severe obstructive sleep apnea at that time with an AHI of over 50 with O2 desats into the 50s. She was placed on CPAP of 14 cm with O2 at 2 L/min. She states that over the last several months she is quit using her CPAP. She states that she has lost about 60 pounds since the original time of her sleep study. She states that she does not seem to be snoring as much and her has not commented about her snoring. I do sleep in separate bedrooms and he is on CPAP. She denies any difficulty with breathing in her sleep and thinks her snoring has gotten better. Her Bronson sleepiness score though is 13. Her stop bang score was 6. Home Medications Medication Instructions Recorded Confirmed Type Allopurinol 300 mg PO DAILY 03/12/16 11/14/16 History Amlodipine Besylate 10 mg PO DAILY 03/12/16 11/14/16 History Aspirin [Ecotrin] 81 mg PO DAILY 03/12/16 11/14/16 History Carvedilol [Coreg] 25 mg PO BID 03/12/16 11/14/16 History Cinacalcet [Sensipar] 90 mg PO DAILY 03/12/16 11/14/16 History Gabapentin 100 mg PO TID 03/12/16 11/14/16 History Insulin Aspart Prot/Asp 70/30 18 unit SUBCUT TID 03/12/16 11/14/16 History [NovoLOG Mix 70/30] Omeprazole 20 mg PO DAILY 03/12/16 11/14/16 History Travoprost 0.004% Oph Soln 1 drop BOTH EYES BEDTIME 03/12/16 11/14/16 History [Travatan Z] traMADol TAB [Ultram] 100 mg PO BID PRN 03/12/16 11/14/16 History Furosemide [Furosemide] 80 mg PO BID 11/14/16 11/14/16 History Sevelamer Carbonate Tab [Renvela 3 tablet PO TID W/MEALS 11/14/16 11/14/16 History Tab] Allergies Allergy/AdvReac Type Severity Reaction Status Date / Time Iodinated Contrast Media - Allergy BLISTER Verified 11/14/16 07:20 Oral and [Iodinated Contrast Media - IV Dye] Review of systems: Otherwise unremarkable from a sleep standpoint. Exam (Pulmonay) H&P - Constitutional Vitals: Period Temp Pulse Resp BP Sys/Parish Pulse Ox Last 24 Hr 97.2 F-100.8 F 68-83 16-21 142-184/66-76 91-97 Exam: She is alert and responsive in no acute distress. Pupils equal round reactive to light and accommodation. Extraocular movements intact. Oropharynx with a class IV Mallampati exam. Neck is supple without adenopathy or thyromegaly. No supraclavicular adenopathy is noted. Chest with symmetrical breath sounds without focal wheeze, rhonchi, or rales. Cardiac exam reveals a regular rhythm without murmur or gallop. Abdomen obese nontender extremities without increased clubbing, cyanosis, or edema. Neurologically, she is grossly intact. She moves all extremities with good strength and ambulates with a normal gait. Medical,Surgical,& Family Hx - Medical History Cardio: History of: CHF, CAD (Nonobstructive), Hypertension, Cardiovascular Problems Endocrine: History of: Diabetes Mellitus (IDDM), Dyslipidemia, Endocrine Problems (Morbid obesity) Respiratory: History of: Obstructive Sleep Apnea (Not using CPAP for last 4 months) Renal: History of: Renal (Kidney) Cancer (CKD), Dialysis (-W-), Renal Failure Gastrointestinal: History of: GERD - Surgical History Cardiac Surgeries: Sugical HX of: Cardiac Catheterization (2003) HEENT Surgeries: Surgical HX of: Eye Surgery (Bilateral cataract) Reproductive Surgeries: Surgical HX of;: Hysterectomy - Family History Family History: Reports;: Family Diabetes (Siblings), Family Heart Disease, Family Hypertension (Mother and siblings), Family Stroke - Social History Smoking Status: Never smoker Frequency of Alcohol Use: None Type of Drug Use: None Results - Labs CBC & BMP: 11/14/16 07:27 11/14/16 07:27 Lab Results: I have reviewed the past 24 hour labs Specialty Discharge - Follow Up or Referrals Follow up with: Ricardo Krause MD [Physician] - 2 Weeks
--- NOTE | 2016-11-15 13:59 | Nephrology Progress Note ---
Nephrology - PN: Subj Interval history: Ms. Felder is seen in follow-up of her end-stage renal disease. She dialyzed yesterday uneventfully and says she is feeling much better. Her chest is clear. Will plan to dialyze her tomorrow and she hopes to be discharged following that. Exam (PN)-Nephrology - Vital Signs Vital signs: Period Temp Pulse Resp BP Sys/Parish Pulse Ox Last 24 Hr 97.2 F-100.8 F 68-83 16-21 142-184/66-76 91-97 - Lab 11/14/16 07:27 11/14/16 07:27 Most recent lab results Calcium 8.1 MG/DL (8.5-10.1) L 11/14/16 07:27 Magnesium 3.1 MG/DL (1.8-2.4) H 11/14/16 07:27 Specialty Discharge - Follow Up or Referrals Follow up with: Ricardo Krause MD [Physician] - 2 Weeks
[2016-11-15] MEDS: TRAVOPROST 0.004% OPH SOLN 2.5 ML BOTTLE BOTH EYES SCH (21:00)
[2016-11-16 04:05] LABS: Basophils # 0.1 10*3/uL (0.0-0.2); Basophils % 0.6 % (0.0-0.8); Eosinophils # 0.3 10*3/uL (0.0-0.87); Eosinophils % 3.5 % (0.00-10.9); Hematocrit 33.3 VOL% (35.7-47.0); Hemoglobin 10.6 GM/DL (12.0-16.0); Immature Granulocytes % 0.4 %; Immature Granulocytes Absolute 0.03 #; Mean Corpuscular HGB Conc 31.8 GM/DL (32-36); Mean Corpuscular Hemoglobin 31 PG (27-34); Mean Corpuscular Volume 96.5 FL (87-102); Mean Platelet Volume 10.6 FL (9.6-12.0); Monocytes % 11.3 % (1.7-12.7); Neutrophils # 5.1 10*3/uL (1.4-7.4); Neutrophils % 60.2 % (38.7-73.9); Platelet Count 221 T/CUMM (130-400); Red Blood Count 3.45 MC/CUMM (3.8-5.5); Red Cell Distribution Width 14.4 % (9.3-17.3); White Blood Count 8.5 T/CUMM (4-12)
[2016-11-16 04:27] LABS: Calcium 7.8 MG/DL (8.5-10.1); Osmolality,Calculated 287.4 MOS/KG (273-304); Potassium 4.5 MMOL/L (3.5-5.1)
--- NOTE | 2016-11-16 07:29 | XRay Report ---
XR chest 2V Date: 11/16/2016 4:00 AM History: Follow-up Comparison: 11/14/2016 Technique: PA and lateral chest Findings: The heart is minimally enlarged. Artifactual densities limit the exam. Residual diffuse parenchymal findings especially in the lower lung zones with minimally increased atelectasis. Calcified granulomata/nodes with stable mediastinum and osseous structures. Impression: The heart remains minimally enlarged with findings which can be seen with mild CHF. Minimally progressive atelectasis. Artifactual densities limit the exam. PROCEDURE INTERPRETED AT [facility] DEPARTMENT OF RADIOLOGY Final Report Signed by: Dr. Ana Garcia
[2016-11-16] MEDS: SEVELAMER CARBONATE 800 MG TABLET PO SCH ×2 (08:49→12:37)
[2016-11-16] MEDS: INSULIN ASPART PROTAMINE/ASPART 70/30 100 UNIT/ML SUBCUT SCH (08:49)
--- NOTE | 2016-11-16 09:22 | Dialysis Note ---
Dialysis Note - Dialysis Note Ms. Ryan is seen during her hemodialysis. She is in no distress and having no chest pain. She is stable and dialyzing uneventfully. She anticipates going home today and resuming outpatient dialysis per her usual schedule.
--- NOTE | 2016-11-16 10:38 | Discharge Summary ---
Hospital Course - Hospital Course Hospital Course: Patient is a 66-year-old female with history of end-stage renal disease on hemodialysis 3 times a week, hypertension, diabetes, nonobstructive coronary artery disease who was admitted with shortness of breath and pressure on her chest. Patient was found to have negative enzymes. She was evaluated by cardiology. There was a question of possible bronchitis and sinusitis. She was started on antibiotics. Patient was seen in consultation by Dr. Schultz for dialysis. She is getting her dialysis today. Her blood pressure medications were adjusted. She was started on hydralazine. She has improved. An echocardiogram was done which showed normal ejection fraction. I will discharge her home today. She will follow-up in 2 weeks. Her medications on discharge include Zithromax and Ceftin. She has been started on hydralazine and I have increased her Prilosec to twice a day. Diagnosis - Discharge Diagnosis (1) Chest pain Status: Resolved (2) Diabetes Status: Chronic (3) Hypertension Status: Chronic (4) Obstructive sleep apnea Status: Chronic (5) Morbid obesity Status: Chronic (6) Congestive heart failure Status: Acute (7) End stage renal disease on dialysis Status: Chronic Specialty Discharge - Follow Up or Referrals Follow up with: Ricardo Krause MD [Physician] - 2 Weeks Discharge Plan - Discharge Data Disposition: Disch To Home/Self Care Condition at Discharge: Stable Discharge Diet: advance to your usual diet, diabetic diet Activity: resume usual activities as tolerated Hygiene: no restrictions - Discharge Medications New Azithromycin Tab [Zithromax Tab] 500 mg PO DAILY #3 tablet hydrALAZINE TAB [Apresoline Tab] 25 mg PO BID #60 tablet Cefuroxime Tab [Ceftin] 500 mg PO BID #10 tablet Omeprazole [Prilosec] 20 mg PO BID #60 capsule Continue Travoprost 0.004% Oph Soln [Travatan Z] 1 drop BOTH EYES BEDTIME Cinacalcet [Sensipar] 90 mg PO DAILY Aspirin [Ecotrin] 81 mg PO DAILY Amlodipine Besylate 10 mg PO DAILY Gabapentin 100 mg PO TID traMADol TAB [Ultram] 100 mg PO BID PRN PRN Reason: Pain Carvedilol [Coreg] 25 mg PO BID Allopurinol 300 mg PO DAILY Insulin Aspart Prot/Asp 70/30 [NovoLOG Mix 70/30] 18 unit SUBCUT TID Sevelamer Carbonate Tab [Renvela Tab] 3 tablet PO TID W/MEALS Furosemide 80 mg PO BID Discontinued Omeprazole 20 mg PO DAILY - Follow Up or Referral Follow Up: Ricardo Krause MD [Physician] - 2 Weeks - Forms/Instructions Additional Discharge Instructions: Appointment in 2 weeks at office. Please call in antibiotics and medications Exam - Constitutional Vitals: Period Temp Pulse Resp BP Sys/Parish Pulse Ox Last 24 Hr 97.7 F-99.2 F 61-78 18-20 131-159/57-77 93-100 Exam: Examination: GENERAL: no acute distress NECK: Neck is supple. CVS: Regular rate and rhythm. S1 and S2 are normal. RESPIRATORY: Lungs are clear. Decreased air entry at the base ABDOMEN: Soft and nontender. Bowel sounds are present. No hepatosplenomegaly. EXT: No edema. Peripheral pulses are present. SUPERVISOR CONTINGENTS: Nonfocal MSK: No obvious deformity. Discharge Results Procedures and tests throughout hospitalization: Pending Orders 11/15/16 08:37 Blood Culture Stat Labs on day of discharge: Labs from last 24 hours 11/16/16 11/16/16 11/16/16 07:56 03:00 03:00 WBC 8.5 RBC 3.45 L Hgb 10.6 L Hct 33.3 L MCV 96.5 MCH 31 MCHC 31.8 L RDW 14.4 Plt Count 221 MPV 10.6 Neut % (Auto) 60.2 Lymph % (Auto) 24.0 [place] % (Auto) 11.3 Eos % (Auto) 3.5 Baso % (Auto) 0.6 Neut # (Auto) 5.1 Lymph # (Auto) 2.0 [place] # (Auto) 1.0 H Eos # (Auto) 0.3 Baso # (Auto) 0.1 Immature Gran % 0.4 Nucleated RBC % 0.0 Immature Gran # 0.03 Nucleated RBCs # 0.00 Sodium 140 Potassium 4.5 Chloride 101 Carbon Dioxide 29 Anion Gap 14.5 BUN 39 H Creatinine 7.60 H GFR Calculation 8 BUN/Creatinine Ratio 5.00 L Glucose 92 POC Glucose 134 H Calculated Osmolality 287.4 Calcium 7.8 L 11/15/16 11/15/16 11/15/16 19:41 15:25 11:03 WBC RBC Hgb Hct MCV MCH MCHC RDW Plt Count MPV Neut % (Auto) Lymph % (Auto) [place] % (Auto) Eos % (Auto) Baso % (Auto) Neut # (Auto) Lymph # (Auto) [place] # (Auto) Eos # (Auto) Baso # (Auto) Immature Gran % Nucleated RBC % Immature Gran # Nucleated RBCs # Sodium Potassium Chloride Carbon Dioxide Anion Gap BUN Creatinine GFR Calculation BUN/Creatinine Ratio Glucose POC Glucose 119 H 142 H 183 H Calculated Osmolality Calcium Preliminary micro results at discharge 11/15/16 08:37 Blood Culture - Preliminary Blood No growth at 1 day 11/15/16 08:37 Blood Culture - Preliminary Blood No growth at 1 day DS: Provider Date of admission: 11/15/16 10:56 Primary care physician: . Mae PCP Attending physician on admission: Sean Teran MD Consults: 11/14/16 09:01 Consult to Case Mgmt/Social Srvs [CONS] Routine Reason for Case Mgmt/Social Srvs: Discharge Planning Consult to Physician [CONS] Routine Comment: Chest tightness Consulting Provider: Ricardo Krause Person Notified: Cindi Date Notified: 11/14/16 Time Notified: 10:45 Consult to Physician [CONS] Routine Comment: Needs dialysis today Consulting Provider: Kristopher Schultz Person Notified: Juan Date Notified: 11/14/16 Time Notified: 10:45 11/15/16 09:28 Consult to Physician [CONS] Routine Comment: Noncompliance with CPAP Consulting Provider: Ilda Hewitt 11/15/16 09:30 Consult to Sleep Center [CONS] Routine Reason for Sleep Center: Sleep Center Physician Consult Comment: noncompliance with cpap Discharging clinician: Sean Teran MD
[2016-11-16] MEDS: cefTRIAXone 1,000 MG in SODIUM CHLORIDE 0.9% 100 ML IV SCH (11:22)
[2016-11-16] MEDS: GABAPENTIN 100 MG CAPSULE PO SCH (11:24)
--- NOTE | 2016-11-16 12:15 | Sleep Medicine Progress Note ---
Assessment and Plan (1) Obstructive sleep apnea Status: Chronic Assessment and plan: Patient will continue CPAP for now and will schedule follow-up with her in sleep clinic to download and reassess. We may need to reevaluate her with in lab polysomnography. Current Visit: Yes (2) Diabetes Status: Chronic Current Visit: Yes (3) Hypertension Status: Chronic Current Visit: Yes (4) Congestive heart failure Status: Acute Current Visit: Yes Sleep Medicine Subjective Interval history: Sleep techs have not yet finished scoring her HST but about 3 hours into recording time, there is not significant sleep apnea. I think it is very unlikely that she does not have persistent sleep apnea. I will recommend that she resume using her CPAP and follow-up with me in the sleep clinic for download of her sleep apnea. We will also finish out the HST device recording and follow-up on those results. Exam (Progress Note) - Constitutional Vitals: Period Temp Pulse Resp BP Sys/Parish Pulse Ox Last 24 Hr 97.7 F-99.2 F 61-71 18-20 131-159/57-77 93-100 Exam: She is alert and responsive in no acute distress. Pupils equal round reactive to light and accommodation. Extraocular movements intact. Oropharynx with a class IV Mallampati exam. Neck is large and supple without adenopathy. Chest is clear without wheeze or rhonchi. Cardiac exam reveals a regular rhythm without murmur or gallop. Abdomen obese nontender without palpable hepatosplenomegaly or mass. Extremities without increased edema or calf tenderness. Neurologically, she is grossly intact. She moves all extremities with good strength. Results - Labs CBC & BMP: 11/16/16 03:00 11/16/16 03:00 Lab Results: I have reviewed the past 24 hour labs Specialty Discharge - Follow Up or Referrals Follow up with: Ricardo Krause MD [Physician] - 12/03/16 2:00 pm
[2016-11-16] MEDS: ALLOPURINOL 300 MG TABLET PO SCH (12:37)
[2016-11-16] MEDS: CINACALCET 30 MG TABLET PO SCH (12:38)
[2016-11-16] MEDS: AZITHROMYCIN 250 MG TABLET PO SCH (12:38)
[2016-11-16] MEDS: DOCUSATE SODIUM 100 MG CAPSULE PO SCH (12:38)
[2016-11-16] MEDS: hydrALAZINE 25 MG TABLET PO SCH (12:38)
[2016-11-16] MEDS: amLODIPine 10 MG TABLET PO SCH (12:38)
[2016-11-16] MEDS: ASPIRIN EC 81 MG TABLET PO SCH (12:39)
[2016-11-16] MEDS: CARVEDILOL 25 MG TABLET PO SCH (12:39)
[2016-11-16] MEDS: PANTOPRAZOLE 40 MG TABLET PO SCH (12:39)
[2016-11-16] MEDS: traMADol 50 MG TABLET PO PRN (12:50)
[2016-11-16 13:19] VITALS: BP 157/85
--- NOTE | 2016-11-19 09:12 | Physician Query Form ---
CLICK EDIT DOCUMENT TO SELECT QUERY ANSWER --> OK --> SIGN Alisia Beth RN Clinical [employer]el[employer] W) [phone] (f) [phone] [email or web address] PROVIDERS: Make your selection(s) from the choices in EACH section by typing an "x" and enter comments in the comment section. Please use your independent medical judgment in providing your response. This request does not imply that any particular answer is desired or expected. CLINICAL INDICATORS: (Providers should not edit this section) Based on documentation of "Acute CHF" History of CHF, HTN, ESRD. BNP of 535. Echo showed EF of 60% "Shortness of breath last night. Awakened not able to breathe . Has to sit up to get some relief" Treated with dialysis in hospital. Please provide further specificity regarding CHF. ACUITY: ( ) Acute ( ) Chronic ( x) Acute on Chronic ( ) Clinicallly unable to determine TYPE: ( ) Systolic (HFrEF - heart failure with reduced systolic function/EF) (x ) Diastolic (HFpEF - heart failure with preserved systolic function/EF) ( ) Combined Systolic/Diastolic ( ) Other, please specify: ( ) Clinically unable to determine ( ) The patient does NOT have CHF COMMENTS: PLEASE ALSO DOCUMENT RESPONSE IN PROGRESS NOTES AND/OR DISCHARGE SUMMARY Use of terms such as suspected, likely, or probable (associated with a specific diagnosis that is being evaluated, monitored, or treated as if it exists) are acceptable and can be restated in the discharge summary if not ruled out. MTDD
== END 2016-11-16 13:45 | disposition home or self-care (01) | DRG 291 ==
LOC: N.EDINP 07:04 → N.ED 07:04 → N.TELEN 10:05
PROVIDERS: ADMIT Internal Medicine; ATTEND Internal Medicine

== ENCOUNTER 2016-12-03 07:18 | Inpatient (IN) ==
[2016-12-03] MEDS ORDERED: LEVOFLOXACIN INJ 750 MG in PREMIX 1 EACH IV STA (07:48)
[2016-12-03] MEDS ORDERED: ALBUTEROL/IPRATROPIUM 3 ML NEB RESP TX STA (07:48)
[2016-12-03] MEDS ORDERED: methylPREDNISolone SOD SUC 125 MG/2 ML VIAL IV STA (07:48)
--- NOTE | 2016-12-03 07:53 | Emergency Department Note ---
Arrival - Arrival Chief Complaint: Shortness of Breath Stated Complaint: SOB ED Nursing Triage Note: PT C/O SHORTNESS OF BREATH SINCE YESTERDAY, WORSE WITH EXERTION AND LYING DOWN. PT REPORTS HAVING NON PRODUCTIVE COUGH. PT IS SCHEDULED TO HAVE DIALYSIS AT 1100 TODAY. Mode of Arrival: Wheelchair Limitations: No Limitations Source: Patient Time Seen by Provider: 12/03/16 07:48 - History of Present Illness HPI Narrative: This 66-year-old black female presents with insidious onset of cough productive of yellowish colored sputum associated with increasing shortness of breath, intermittent wheeze, orthopnea, and PND. The patient denies chills, fever, or chest pain. Of note, she is a dialysis patient who is dialyzed Mondays, Wednesdays, and Fridays with her dialysis scheduled in approximately 2 hours for now. Currently she is medically stable Onset (ago): hour(s) (Patient presents approximately 18 hours post onset of symptom) Allergies/Adverse Reactions: Allergies Allergy/AdvReac Type Severity Reaction Status Date / Time Iodinated Contrast Media - Allergy BLISTER Verified 12/03/16 07:30 Oral and [Iodinated Contrast Media - IV Dye] Home Medications: Home Medications Medication Instructions Recorded Confirmed Type Allopurinol 300 mg PO DAILY 03/12/16 12/03/16 History Amlodipine Besylate 10 mg PO DAILY 03/12/16 12/03/16 History Aspirin [Ecotrin] 81 mg PO DAILY 03/12/16 12/03/16 History Carvedilol [Coreg] 25 mg PO BID 03/12/16 12/03/16 History Cinacalcet [Sensipar] 90 mg PO DAILY 03/12/16 12/03/16 History Gabapentin 100 mg PO TID 03/12/16 12/03/16 History Insulin Aspart Prot/Asp 70/30 18 unit SUBCUT TID 03/12/16 12/03/16 History [NovoLOG Mix 70/30] Travoprost 0.004% Oph Soln 1 drop BOTH EYES BEDTIME 03/12/16 12/03/16 History [Travatan Z] traMADol TAB [Ultram] 100 mg PO BID PRN 03/12/16 12/03/16 History Furosemide 80 mg PO BID 11/14/16 12/03/16 History Sevelamer Carbonate Tab [Renvela 3 tablet PO TID W/MEALS 11/14/16 12/03/16 History Tab] Omeprazole [Prilosec] 20 mg PO BID #60 capsule 11/16/16 12/03/16 Rx hydrALAZINE TAB [Apresoline Tab] 25 mg PO BID #60 tablet 11/16/16 12/03/16 Rx Review of System - Review of System 12 point system: reviewed and no additional remarkable complaints except as stated - Review of System Constitutional: Present: as per HPI Respiratory: Present: as per HPI Cardiovascular: Present: as per HPI Gastrointestinal: Present: as per HPI Genitourinary female: Present: as per HPI Medical,Surgical,& Family Hx - Medical History Cardio: History of: CHF, CAD (Nonobstructive), Hypertension, Cardiovascular Problems Endocrine: History of: Diabetes Mellitus (IDDM), Dyslipidemia, Endocrine Problems (Morbid obesity) Respiratory: History of: Obstructive Sleep Apnea (Not using CPAP for last 4 months) Renal: History of: Renal (Kidney) Cancer (CKD), Dialysis (-W-), Renal Failure Gastrointestinal: History of: GERD - Surgical History Cardiac Surgeries: Sugical HX of: Cardiac Catheterization (2003) HEENT Surgeries: Surgical HX of: Eye Surgery (Bilateral cataract) Reproductive Surgeries: Surgical HX of;: Hysterectomy - Family History Family History: Reports;: Family Diabetes (Siblings), Family Heart Disease, Family Hypertension (Mother and siblings), Family Stroke - Social History Smoking Status: Never smoker Frequency of Alcohol Use: None Type of Drug Use: None Exam Physical Examination: GENERAL: Obese black female in no acute distress. HEENT: Normocephalic. No trauma. Moist mucous membranes. EOMI. PERRLA. ENT NML NECK: Supple. No adenopathy. CARDIAC: Regular. No murmurs. Heart rate 75 CHEST: Scattered occasional expiratory wheeze. No respiratory distress. O2 saturation 95% ABDOMEN: Soft. Nontender. Active bowel sounds. EXTREMITIES: No trauma. Normal ROM. Trace pedal edema. Left upper extremity fistula with good thrill SKIN: No diaphoresis. No rash. NEURO: Alert. Neuro intact. No focal deficits. Vital Signs: Vital Signs Temperature 98.9 F 12/03/16 07:48 Pulse Rate 66 12/03/16 08:26 Respiratory Rate 20 12/03/16 08:26 Blood Pressure 161/75 12/03/16 07:48 O2 Sat by Pulse Oximetry 100 12/03/16 08:26 Course - Reevaluation(s) Reevaluation #1: Discussed with patient the need for hospitalization - Consultations Consultation #1: Discussed with Dr. Pikcett who will admit for Dr. Teran. Results - Labs CBC & BMP: 12/03/16 08:31 12/03/16 08:31 Labs: I reviewed the lab and noted the elevated white blood cell count and elevated B in P as well as expected findings for a dialysis patient. - Impressions EKG: Sinus rhythm at 75 with poor R-wave progression anteriorly. Nonspecific ST changes with T-wave inversion in the lateral leads. No acute injury pattern noted. - Diagnostic Findings Procedure: Chest x-ray: image reviewed by me, report reviewed by me ( Cardiomegaly with evidence of bilateral pleural effusions congestive failure with possible superimposed pneumonia) Disposition Clinical Impression: Congestive heart failure, Pneumonia, Dialysis dependent renal failure Case discussed with: patient, patient's family Disposition: Still a Patient Condition: Guarded Time of Disposition: 10:10
--- NOTE | 2016-12-03 07:54 | EKG Report ---
Stationary ECG Study [facility] Emergency [facility] ER Test Date: 12/03/2016 7:41:18 AM Pat Name: JOHNATHAN PARRA Department: Room: Gender: F [employer]: : 1950 Requested by: Best Hallman Order Number: [id number] Reading MD: PRASANNA ARAMBULA Intervals [place] Rate: 75 P: 60 [place]: 208 QRS: 100 QRSD: 129 T: 111 QT: 434 QTc: 463 Interpretive Statements SINUS RHYTHM WITH SINUS ARRHYTHMIA INDETERMINATE AXIS IVCD Electronically Signed On 12-03-16 08:59:03 CDT by PRASANNA ARAMBULA [email or web address]
--- NOTE | 2016-12-03 08:24 | XRay Report ---
Exam: XR chest 1V portable Date: 12/03/2016 7:49 AM Indication: Shortness of breath Comparison: 11/16/2016 Technical: AP portable Findings: Cardiomegaly is present. Shunt vascularity is present with low volume effusions. External cardiac leads are present. ASVD is present. Calcified nodes and left aortopulmonic window. Small calcified nodular density in the left infrahilar region. Oxygen tubing external cardiac leads are present. Findings show some resorption of distal tip of the right clavicle. Impression: 1. Cardiomegaly with component of CHF and interstitial edema and bilateral effusions. PROCEDURE INTERPRETED AT [facility] DEPARTMENT OF RADIOLOGY Final Report Signed by: Dr. Tom Sweeney
[2016-12-03] MEDS ORDERED: LEVOFLOXACIN INJ 150 ML IV ONE (08:33)
[2016-12-03] MEDS ORDERED: methylPREDNISolone SOD SUC 125 MG/2 ML VIAL ONE (08:33)
[2016-12-03 08:57] LABS: Basophils # 0.1 10*3/uL (0.0-0.2); Basophils % 0.4 % (0.0-0.8); Eosinophils # 0.3 10*3/uL (0.0-0.87); Eosinophils % 1.9 % (0.00-10.9); Hematocrit 36.6 VOL% (35.7-47.0); Hemoglobin 11.8 GM/DL (12.0-16.0); Immature Granulocytes % 0.5 %; Immature Granulocytes Absolute 0.07 #; Lymphocytes # 1.6 10*3/uL (1.4-4.0); Lymphocytes % 11.2 % (21.3-54.2); Mean Corpuscular HGB Conc 32.2 GM/DL (32-36); Mean Corpuscular Hemoglobin 31 PG (27-34); Mean Corpuscular Volume 95.6 FL (87-102); Mean Platelet Volume 10.7 FL (9.6-12.0); Monocytes # 0.6 10*3/uL (0.11-0.8); Monocytes % 4.3 % (1.7-12.7); Neutrophils # 11.3 10*3/uL (1.4-7.4); Neutrophils % 81.7 % (38.7-73.9); Platelet Count 225 T/CUMM (130-400); Red Blood Count 3.83 MC/CUMM (3.8-5.5); Red Cell Distribution Width 14.8 % (9.3-17.3); White Blood Count 13.9 T/CUMM (4-12)
[2016-12-03 09:04] LABS: Partial Thromboplastin Time 29.8 SECS (0-40)
[2016-12-03 09:22] LABS: Albumin 3.8 G/DL (3.4-5.0); Bilirubin,Total 0.4 MG/DL (0.2-1.0); Calcium 7.5 MG/DL (8.5-10.1); Total Protein 7.9 G/DL (6.4-8.3)
[2016-12-03 09:23] LABS: Troponin I Only < 0.015 NG/ML (0.00-0.045)
[2016-12-03] MEDS ORDERED: GLUCAGON 1 MG VIAL IM PRN (10:12)
[2016-12-03] MEDS ORDERED: ALBUTEROL/IPRATROPIUM 3 ML NEB RESP TX PRN (10:12)
[2016-12-03] MEDS ORDERED: DEXTROSE 50% 25 GM/50 ML VIAL IV PRN (10:12)
[2016-12-03] MEDS ORDERED: ONDANSETRON 4 MG/2 ML VIAL IV PRN (10:12)
[2016-12-03] MEDS: INSULIN ASPART PROTAMINE/ASPART 70/30 100 UNIT/ML SUBCUT SCH ×2 (11:58→17:05)
[2016-12-03] MEDS: SEVELAMER CARBONATE 800 MG TABLET PO SCH ×2 (11:58→17:06)
--- NOTE | 2016-12-03 12:41 | Cardiology Consult Note ---
Assessment and Plan - Time spent with patient Time spent with patient: Greater than 30 minutes (1) Allergy to IVP dye Status: Chronic Assessment and plan: SEE PLAN OF CARE LISTED BELOW Current Visit: Yes (2) Congestive heart failure Status: Acute Assessment and plan: SEE PLAN OF CARE LISTED BELOW Current Visit: No Qualifiers: Congestive heart failure type: diastolic Congestive heart failure chronicity: acute on chronic Qualified Code(s): I50.33 - Acute on chronic diastolic (congestive) heart failure (3) Diabetes Status: Chronic Assessment and plan: SEE PLAN OF CARE LISTED BELOW Current Visit: Yes (4) End stage renal disease on dialysis Status: Chronic Assessment and plan: SEE PLAN OF CARE LISTED BELOW Current Visit: Yes (5) Hypertension Status: Chronic Assessment and plan: SEE PLAN OF CARE LISTED BELOW Current Visit: Yes (6) Morbid obesity Status: Chronic Assessment and plan: SEE PLAN OF CARE LISTED BELOW (7) Obstructive sleep apnea Status: Chronic Assessment and plan: SEE PLAN OF CARE LISTED BELOW Current Visit: Yes (8) Chest pain Status: Acute Assessment and plan: SEE PLAN OF CARE LISTED BELOW Current Visit: Yes History of Present Illness - Data of Consult Patient: known to practice within the last 3 years Consult date: 12/03/16 Requesting Physician: Sean Teran - Consult Narrative Reason for consult: chest pain, SOB History of present illness: SECURITY AGENT: DR. KRAUSE Ms. Carney, 66BF, followed by Dr. Krause. Risk factors include: Hypertension, dyslipidemia, diabetes, morbid obesity, sedentary lifestyle, family history of premature coronary artery disease. History of end-stage renal disease requiring dialysis M-W-F, untreated MITCHELL. Heart catheterization 01/24/2004 revealed EF 60%, no obstructive coronary artery disease. Echo November 14, 2016: EF 60%, moderate LVH, RVSP 50 mmHg + RAP. Patient presented to the ED of [facility] today after experiencing increasing shortness of breath and chest heaviness with exertion. Saturday, she became significantly short of breath with chest heaviness as she was walking out of sikh. Chest discomfort is described as substernal "heaviness" without radiation. She believes his shortness of breath may start first but is usually associated with chest heaviness, lasting several minutes until she rests. Denies associated with nausea, vomiting. Yesterday however, she did experience extreme weakness and mild diaphoresis when walking in to the heat from sikh. She rates the discomfort as a 7 on a scale of 1-10. She is currently chest pain -free. The symptoms occur daily and rest relieves, Patient was hospitalized in November 2016 for similar symptoms. At that time, it appeared atypical of angina and was treated for bronchitis. She initially improved but SOB has returned "worse than before." She has had 2-3 pillow orthopnea, currently tachypneic at rest. She is scheduled for dialysis this morning. Cardiac biomarkers are negative. EKG abnormal. We will continue to cycle her cardiac biomarkers, follow EKG. Patient may benefit from further cardiac workup such as cardiac catheterization. Weight is prohibitive of stress testing. Should patient require heart catheterization, she will need IVP dye allergy protocol ("blisters all over my body with last LHC "). Hopefully, after dialysis, orthopnea will improve. At this point, she cannot lie flat for heart catheterization. Also, venous ultrasound bilateral lower extremity to rule out DVT. I will consult Dr. Hewitt of sleep medicine as patient has a history of untreated sleep apnea. No need to repeat echocardiogram as there is record of November 2016 echo. I will further discuss with Dr. Mancia and await additional recommendations. ASSESSMENT/PLAN: 1. CHEST PAIN - suspicious for angina. CIEs negative. Abnormal EKG 2. SOB AND ORTHOPNEA- Also, concerning for angina. Will further discuss with Dr. Mancia for possible LHC. 3. ACUTE ON CHRONIC DIASTOLIC CHF - Echo November 2016 EF 60%, diastolic CHF, NYHA Class III-IV. Continue aspirin, beta-arleen, diuretics. Avoiding AMADO due to her renal insufficiency. 4. HYPERTENSION - suboptimally controlled. Will add hydralazine. 5. UNKNOWN LIPID STATUS - lipid profile in the morning 6. CKD REQUIRING HD - scheduled for dialysis today. 7. MORBID OBESITY - dietary counseling prior to discharge 8. UNTREATED SLEEP APNEA - consult Dr. Hewitt. 9. DIABETES - continue current plan of care. 10. IVP DYE ALLERGY - will need pre-op medication should patient require LHC 11. EDEMA -venous ultrasound bilateral lower extremity. Lower extremity edema may be related to her Norvasc as she is taking 10 mg daily. CC: Sean Teran MD - Home Medications and Allergies Home Medications: Home Medications Medication Instructions Recorded Confirmed Type Allopurinol 300 mg PO DAILY 03/12/16 12/03/16 History Amlodipine Besylate 10 mg PO DAILY 03/12/16 12/03/16 History Aspirin [Ecotrin] 81 mg PO DAILY 03/12/16 12/03/16 History Carvedilol [Coreg] 25 mg PO BID 03/12/16 12/03/16 History Cinacalcet [Sensipar] 90 mg PO DAILY 03/12/16 12/03/16 History Gabapentin 100 mg PO TID 03/12/16 12/03/16 History Insulin Aspart Prot/Asp 70/30 18 unit SUBCUT TID 03/12/16 12/03/16 History [NovoLOG Mix 70/30] Travoprost 0.004% Oph Soln 1 drop BOTH EYES BEDTIME 03/12/16 12/03/16 History [Travatan Z] traMADol TAB [Ultram] 100 mg PO BID PRN MDD 4 tablets 03/12/16 12/03/16 History Furosemide 80 mg PO BID 11/14/16 12/03/16 History Sevelamer Carbonate Tab [Renvela 3 tablet PO TID W/MEALS 11/14/16 12/03/16 History Tab] Omeprazole [Prilosec] 20 mg PO BID #60 capsule 11/16/16 12/03/16 Rx hydrALAZINE TAB [Apresoline Tab] 25 mg PO BID #60 tablet 11/16/16 12/03/16 Rx Allergies/Adverse Reactions: Allergies Allergy/AdvReac Type Severity Reaction Status Date / Time Iodinated Contrast Media - Allergy BLISTER Verified 12/03/16 07:30 Oral and [Iodinated Contrast Media - IV Dye] Review of systems: REVIEW OF SYSTEMS: - Constitutional Constitutional: Present: Fatigue. Absent: syncope, anorexia, night sweats - EENT Eyes: Absent: blurry vision, loss of vision, diplopia Ears: Absent: decreased hearing, ear pain, ear discharge - Cardiovascular Cardiovascular: Present: chest heaviness with exertion, dyspnea on exertion, edema. Denies palpitations. Absent: chest pain with deep breath, claudication - Respiratory Respiratory: Present: KIRK, orthopnea with dry cough. Absent: wheezing, hemoptysis, change in phlegm color - Gastrointestinal Gastrointestinal: Present: constipation. Absent: abdominal pain, hematemesis , hematochezia, melena, change in bowel habits, nausea - Genitourinary Genitourinary: Absent: difficulty urinating, dysuria, urinary hesitancy, flank pain - Musculoskeletal Musculoskeletal: Present: back pain Absent: joint swelling, muscle cramps, muscle weakness - Neurological Neurological: Present: Poor gait without frequent falls. Absent: dizziness, hemiparesis - Psychiatric Psychiatric: Absent: anxiety, depression, difficulty concentrating - Endocrine Endocrine: Present: fatigue. Absent: cold intolerance, heat intolerance, polyuria, polyphagia, polydipsia - Hematologic/Lymphatic Hematologic/Lymphatic: Present: easy bruising. Absent: easy bleeding -Integumentary Integumentary: Absent: lesions, rashes, skin breakdown Medical,Surgical,& Family Hx - Medical History Cardio: History of: CHF, Hypertension, Cardiovascular Problems No history of: Cardiac Dysrhythmia, [place] Endocrine: History of: Diabetes Mellitus (IDDM), Dyslipidemia, Endocrine Problems (Morbid obesity) Respiratory: History of: Obstructive Sleep Apnea (Not using CPAP for last 4 months) Renal: History of: Renal (Kidney) Cancer (CKD), Dialysis (--), Renal Failure Gastrointestinal: History of: GERD - Surgical History Cardiac Surgeries: Sugical HX of: Cardiac Catheterization (2003) HEENT Surgeries: Surgical HX of: Eye Surgery (Bilateral cataract) Reproductive Surgeries: Surgical HX of;: Hysterectomy - Family History Family History: Reports;: Family Diabetes (Siblings), Family Heart Disease, Family Hypertension (Mother and siblings), Family Stroke - Social History Smoking Status: Never smoker Have you smoked in the last 12 months: No Frequency of Alcohol Use: None Type of Drug Use: None Marital Status: Lives With:: Spouse Physical Examination Vital Signs Temp Pulse Resp BP Pulse Ox 98.9 F 70 18 161/75 95 12/03/16 07:27 12/03/16 07:27 12/03/16 07:27 12/03/16 07:27 12/03/16 07:27 General: [Mildly tachypneic at rest. Orthopneic. Sitting with head of the bed elevated at 45. ] [Pleasant and cooperative. ] [] HEENT: [PERRL, normocephalic, atraumatic. Mucous membranes moist. No jaundice noted. Conjunctiva moist and clear, sclerae anicteric]. Mallampati Airway Clas III Neck: Unable to assess JVD due to habitus. No thyromegaly or lymphadenopathy noted. No carotid bruit appreciated Cardiac: [Regular rate and rhythm.] [No obvious murmur, rub or gallop.] Lungs: [Decreased lung sounds throughout. ] Oxygen in use via nasal cannula Abdomen: Soft, bowel sounds normoactive. Nontender and nondistended. No abdominal bruit or thrill noted. No masses noted. Musculoskeletal: Mild fluid collection. Decreased range of motion is noted. Extremities: No clubbing, cyanosis noted. [1+ bilateral lower extremity edema noted.] Upper extremity pulses 2+. Lower extremity pulses 2+. Capillary refill less than 3 seconds. Skin: No unusual lesions or rashes. No skin breakdown appreciated. Neuro: Awake, alert and oriented 3. Moves all extremities well without hemiparesis or paralysis. No essential tremor is appreciated. Result/EKG - Labs CBC & BMP: 12/03/16 08:31 12/03/16 08:31 Lab Results: I have reviewed the past 24 hour labs Labs: Laboratory Results - last 24 hr 12/03/16 12/03/16 12/03/16 08:31 08:31 08:31 WBC 13.9 H RBC 3.83 Hgb 11.8 L Hct 36.6 MCV 95.6 MCH 31 MCHC 32.2 RDW 14.8 Plt Count 225 MPV 10.7 Neut % (Auto) 81.7 H Lymph % (Auto) 11.2 L [place] % (Auto) 4.3 Eos % (Auto) 1.9 Baso % (Auto) 0.4 Neut # (Auto) 11.3 H Lymph # (Auto) 1.6 [place] # (Auto) 0.6 Eos # (Auto) 0.3 Baso # (Auto) 0.1 Immature Gran % 0.5 Nucleated RBC % 0.0 Immature Gran # 0.07 Nucleated RBCs # 0.00 INR 1.0 PT Patient/Control Mix 11.0 Circ Anticoag PTT 29.8 Sodium 136 Potassium 5.0 Chloride 99 Carbon Dioxide 30 Anion Gap 12.0 BUN 56 H Creatinine 9.50 H GFR Calculation 6 BUN/Creatinine Ratio 5.00 L Glucose 174 H POC Glucose Calculated Osmolality 291.0 Calcium 7.5 L Total Bilirubin 0.40 AST 16 ALT 22 Alkaline Phosphatase 338 H Total Creatine Kinase CK-MB (CK-2) Troponin I B-Natriuretic Peptide Total Protein 7.9 Albumin 3.8 Globulin 4.1 H Albumin/Globulin Ratio 0.9 L 12/03/16 12/03/16 12/03/16 08:31 08:31 11:28 WBC RBC Hgb Hct MCV MCH MCHC RDW Plt Count MPV Neut % (Auto) Lymph % (Auto) [place] % (Auto) Eos % (Auto) Baso % (Auto) Neut # (Auto) Lymph # (Auto) [place] # (Auto) Eos # (Auto) Baso # (Auto) Immature Gran % Nucleated RBC % Immature Gran # Nucleated RBCs # INR PT Patient/Control Mix Circ Anticoag PTT Sodium Potassium Chloride Carbon Dioxide Anion Gap BUN Creatinine GFR Calculation BUN/Creatinine Ratio Glucose POC Glucose 198 H Calculated Osmolality Calcium Total Bilirubin AST ALT Alkaline Phosphatase Total Creatine Kinase 140 CK-MB (CK-2) < 1.0 Troponin I < 0.015 B-Natriuretic Peptide 477 H Total Protein Albumin Globulin Albumin/Globulin Ratio - Diagnostic Findings Procedure: Chest x-ray: report reviewed by me - EKG EKG results: interpreted by me EKG shows: sinus rhythm
[2016-12-03] MEDS ORDERED: MAGNESIUM SULF RIDER 2 GM in PREMIX 1 EACH IV PRN (15:11)
[2016-12-03] MEDS ORDERED: DIAZEPAM 5 MG TABLET PO ONE (15:11)
[2016-12-03] MEDS ORDERED: POTASSIUM CHLORIDE RIDER 10 MEQ in PREMIX 1 EACH IV PRN (15:11)
[2016-12-03] MEDS ORDERED: diphenhydrAMINE CAP 25 MG CAPSULE PO ONE (15:11)
[2016-12-03 16:56] LABS: INR 1.1; PT Patient Result 11.4 SECS
[2016-12-03] MEDS: hydrALAZINE 25 MG TABLET PO SCH ×2 (17:05→21:00)
[2016-12-03] MEDS: INSULIN REGULAR 100 UNIT/ML SUBCUT SCH (17:05)
[2016-12-03] MEDS: FUROSEMIDE 100 MG/10 ML VIAL IV SCH (17:05)
--- NOTE | 2016-12-03 17:06 | Ultrasound Report ---
History: Lower extremity edema and pain Date: 12/03/2016 Study: Bilateral lower extremity color-flow venous Doppler study Comparison exam: February 12, 2009 Color Doppler, wave form analysis, and compression analysis of the deep veins of both lower extremities from the common femoral vein level through the popliteal vein level shows that the veins are readily compressible. There is no abnormal intraluminal material to suggest thrombus. Waveform analysis is unremarkable. Ultrasound images were captured and archived Impression: Normal bilateral lower extremity color flow venous Doppler study. No evidence of acute DVT PROCEDURE INTERPRETED AT [facility] DEPARTMENT OF RADIOLOGY Final Report Signed by: Dr. Nahomi Cole
[2016-12-03] MEDS: INSULIN LISPRO 100 UNIT/ML SUBCUT SCH (17:07)
--- NOTE | 2016-12-03 17:49 | Internal Med History&Physical ---
Assessment and Plan - Time spent with patient Time spent with patient: Greater than 30 minutes (1) Congestive heart failure Status: Acute Assessment and plan: Cardiology consult done. Possibly cath planned in next few days. Current Visit: Yes Qualifiers: Congestive heart failure type: diastolic Congestive heart failure chronicity: acute on chronic Qualified Code(s): I50.33 - Acute on chronic diastolic (congestive) heart failure (2) Pneumonia Status: Acute Assessment and plan: Started on Levaquin day 1 today, 750 mg every 48 hours Current Visit: Yes Qualifiers: Laterality: unspecified laterality (3) End stage renal disease on dialysis Status: Chronic Assessment and plan: Continue dialysis. Current Visit: Yes (4) Hypertension Status: Chronic Assessment and plan: Continue antihypertensives Current Visit: Yes (5) Morbid obesity Status: Chronic Current Visit: Yes (6) Diabetes Status: Chronic Assessment and plan: Continue insulin, POC glucose checks before meals and at bedtime Current Visit: Yes Qualifiers: Diabetes mellitus type: type 2 Diabetes mellitus complication status: with kidney complications Diabetes mellitus complication detail: with chronic kidney disease Chronic kidney disease stage: on chronic dialysis History of Present Illness Chief complaint: Shortness of breath on exertion History of present illness: Ms. Carney is a 66 year old female. PCP: Dr. Teran. Patient came to the ER for shortness of breath on exertion since 3 days, getting worse had cough productive of yellowish sputum since few days. No fever, nausea, vomiting, denies chest pain patient. Has history of chronic end-stage renal disease since 2 years on dialysis Saturday, uses CPAP for obstructive sleep apnea, has history of congestive heart failure. Mentions she has history of diabetes on insulin her blood sugars are ranging average from 100- 200+ average at home. Patient had last visit to the ER 3 weeks ago. Possibly for similar complaints.,, Home Medications Medication Instructions Recorded Confirmed Type Allopurinol 300 mg PO DAILY 03/12/16 12/03/16 History Amlodipine Besylate 10 mg PO DAILY 03/12/16 12/03/16 History Aspirin [Ecotrin] 81 mg PO DAILY 03/12/16 12/03/16 History Carvedilol [Coreg] 25 mg PO BID 03/12/16 12/03/16 History Cinacalcet [Sensipar] 90 mg PO DAILY 03/12/16 12/03/16 History Gabapentin 100 mg PO TID 03/12/16 12/03/16 History Insulin Aspart Prot/Asp 70/30 18 unit SUBCUT TID 03/12/16 12/03/16 History [NovoLOG Mix 70/30] Travoprost 0.004% Oph Soln 1 drop BOTH EYES BEDTIME 03/12/16 12/03/16 History [Travatan Z] traMADol TAB [Ultram] 100 mg PO BID PRN MDD 4 tablets 03/12/16 12/03/16 History Furosemide 80 mg PO BID 11/14/16 12/03/16 History Sevelamer Carbonate Tab [Renvela 3 tablet PO TID W/MEALS 11/14/16 12/03/16 History Tab] Omeprazole [Prilosec] 20 mg PO BID #60 capsule 11/16/16 12/03/16 Rx hydrALAZINE TAB [Apresoline Tab] 25 mg PO BID #60 tablet 11/16/16 12/03/16 Rx Allergies Allergy/AdvReac Type Severity Reaction Status Date / Time Iodinated Contrast Media - Allergy BLISTER Verified 12/03/16 07:30 Oral and [Iodinated Contrast Media - IV Dye] Medical,Surgical,& Family Hx - Medical History Cardio: History of: CHF, CAD (Nonobstructive), Hypertension, Cardiovascular Problems No history of: Cardiac Dysrhythmia, [place] Endocrine: History of: Diabetes Mellitus (IDDM), Dyslipidemia, Endocrine Problems (Morbid obesity) Respiratory: History of: Obstructive Sleep Apnea (Not using CPAP for last 4 months) Renal: History of: Renal (Kidney) Cancer (CKD), Dialysis (-W-), Renal Failure Gastrointestinal: History of: GERD - Surgical History Cardiac Surgeries: Sugical HX of: Cardiac Catheterization (2003) HEENT Surgeries: Surgical HX of: Eye Surgery (Bilateral cataract) Reproductive Surgeries: Surgical HX of;: Hysterectomy - Family History Family History: Reports;: Family Diabetes (Siblings), Family Heart Disease, Family Hypertension (Mother and siblings), Family Stroke - Social History Smoking Status: Never smoker Frequency of Alcohol Use: None Type of Drug Use: None - Constitutional Constitutional: Present: as per HPI - EENT Eyes: Present: as per HPI Ears: Present: as per HPI - Cardiovascular Cardiovascular: Present: as per HPI - Respiratory Respiratory: Present: as per HPI - Gastrointestinal Gastrointestinal: Present: as per HPI - Genitourinary Genitourinary: Present: as per HPI - Neurological Neurological: Present: as per HPI Exam - Constitutional Vitals: Period Temp Pulse Resp BP Sys/Parish Pulse Ox Last 24 Hr 97.8 F-98.9 F 65-77 18-22 142-172/64-96 79-100 Exam: GENERAL APPEARANCE: alert and oriented, pleasant, in no acute distress, morbidly obese [place] female patient. HEENT: normal. EYES: extraocular movement intact (EOMI), conjunctiva clear, normal. NECK/THYROID: neck supple, full range of motion, no cervical lymphadenopathy, no thyromegaly. HEART: regular rate and rhythm, no murmurs, rubs, gallops. LUNGS: clear to auscultation bilaterally, no wheezes, rales, rhonchi. ABDOMEN: soft, nontender, nondistended, no organomegaly , bowel sounds present. EXTREMITIES: 1+ edema, mostly around bilateral ankles. NEUROLOGIC: alert and oriented, cranial nerves 2-12 grossly intact, Results - Labs CBC & BMP: 12/03/16 08:31 12/03/16 08:31 Lab Results: I have reviewed the past 24 hour labs - Impressions At the time of admission, chest x-ray from the ER showed cardiomegaly with CHF/ interstitial edema and bilateral effusions. glucose 174/198/192, BNP 477
--- NOTE | 2016-12-03 18:32 | Nephrology Consult Note ---
History of Present Illness Chief complaint: ESRD History of present illness: Ms. Carney is a 66 year old female with history of ESRD due to HTN, DM that dialyzes at the [place] dialysis unit with Dr. Hinds. She presented with increased shortness of breath and chest discomfort. Cxr showed increased volume overload. Doppler studies have been negative. Nephrology has been consulted for renal issues. She mentions that her breathing is better after dialysis. Home Medications Medication Instructions Recorded Confirmed Type Allopurinol 300 mg PO DAILY 03/12/16 12/03/16 History Amlodipine Besylate 10 mg PO DAILY 03/12/16 12/03/16 History Aspirin [Ecotrin] 81 mg PO DAILY 03/12/16 12/03/16 History Carvedilol [Coreg] 25 mg PO BID 03/12/16 12/03/16 History Cinacalcet [Sensipar] 90 mg PO DAILY 03/12/16 12/03/16 History Gabapentin 100 mg PO TID 03/12/16 12/03/16 History Insulin Aspart Prot/Asp 70/30 18 unit SUBCUT TID 03/12/16 12/03/16 History [NovoLOG Mix 70/30] Travoprost 0.004% Oph Soln 1 drop BOTH EYES BEDTIME 03/12/16 12/03/16 History [Travatan Z] traMADol TAB [Ultram] 100 mg PO BID PRN MDD 4 tablets 03/12/16 12/03/16 History Furosemide 80 mg PO BID 11/14/16 12/03/16 History Sevelamer Carbonate Tab [Renvela 3 tablet PO TID W/MEALS 11/14/16 12/03/16 History Tab] Omeprazole [Prilosec] 20 mg PO BID #60 capsule 11/16/16 12/03/16 Rx hydrALAZINE TAB [Apresoline Tab] 25 mg PO BID #60 tablet 11/16/16 12/03/16 Rx Allergies Allergy/AdvReac Type Severity Reaction Status Date / Time Iodinated Contrast Media - Allergy BLISTER Verified 12/03/16 07:30 Oral and [Iodinated Contrast Media - IV Dye] Medical,Surgical,& Family Hx - Medical History Cardio: History of: CHF, CAD (Nonobstructive), Hypertension, Cardiovascular Problems No history of: Cardiac Dysrhythmia, [place] Endocrine: History of: Diabetes Mellitus (IDDM), Dyslipidemia, Endocrine Problems (Morbid obesity) Respiratory: History of: Obstructive Sleep Apnea (Not using CPAP for last 4 months) Renal: History of: Renal (Kidney) Cancer (CKD), Dialysis (M-W-F), Renal Failure Gastrointestinal: History of: GERD - Surgical History Cardiac Surgeries: Sugical HX of: Cardiac Catheterization (2003) HEENT Surgeries: Surgical HX of: Eye Surgery (Bilateral cataract) Reproductive Surgeries: Surgical HX of;: Hysterectomy - Family History Family History: Reports;: Family Diabetes (Siblings), Family Heart Disease, Family Hypertension (Mother and siblings), Family Stroke - Social History Smoking Status: Never smoker Frequency of Alcohol Use: None Type of Drug Use: None Review of Systems Constitutional: fatigue, no fever(s), no frequent falls Cardiovascular: no chest pain at rest Respiratory: dyspnea Gastrointestinal: no abdominal pain, no bloating Exam - Vital Signs Vital signs: Period Temp Pulse Resp BP Sys/Parish Pulse Ox Last 24 Hr 97.8 F-98.9 F 65-77 18-22 142-172/64-96 79-100 - General Appearance General appearance: well-developed, well-nourished EENT: ATNC Neck: supple Respiratory: clear Cardiology: no edema, regular rate, regular rhythm Gastrointestinal: normoactive bowel sounds, no tenderness Neurologic: alert and oriented x3 Musculoskeletal: no clubbing Psychiatric: mood/affect appropriate, cooperative Results - Labs CBC & BMP: 12/03/16 08:31 12/03/16 08:31 Assessment and Plan (1) Chest pain Status: Acute Current Visit: Yes (2) Congestive heart failure Status: Acute Current Visit: Yes Qualifiers: Congestive heart failure type: diastolic Congestive heart failure chronicity: acute on chronic Qualified Code(s): I50.33 - Acute on chronic diastolic (congestive) heart failure (3) End stage renal disease on dialysis Status: Chronic Assessment and plan: On hemodialysis MWF schedule. Breathing is better after dialysis. Current Visit: Yes (4) Diabetes Status: Chronic Current Visit: Yes Qualifiers: Diabetes mellitus type: type 2 Diabetes mellitus complication status: with kidney complications Diabetes mellitus complication detail: with chronic kidney disease Chronic kidney disease stage: on chronic dialysis (5) Hypertension Status: Chronic Current Visit: Yes Qualifiers: Hypertension type: essential hypertension Qualified Code(s): I10 - Essential (primary) hypertension (6) Morbid obesity Status: Chronic Current Visit: Yes
[2016-12-03] MEDS: predniSONE 20 MG TABLET PO SCH (21:00)
[2016-12-03] MEDS: ENOXAPARIN 30 MG/0.3 ML SYRINGE SUBCUT SCH (21:00)
[2016-12-03] MEDS: CARVEDILOL 25 MG TABLET PO SCH (21:00)
[2016-12-03] MEDS: ALLOPURINOL 300 MG TABLET PO SCH (21:00)
[2016-12-03] MEDS: FAMOTIDINE 20 MG TABLET PO SCH (21:00)
[2016-12-03] MEDS: diphenhydrAMINE CAP 50 MG CAPSULE PO SCH (21:00)
[2016-12-03] MEDS: TRAVOPROST 0.004% OPH SOLN 2.5 ML BOTTLE BOTH EYES SCH (21:01)
[2016-12-04] MEDS: ACETAMINOPHEN 325 MG TABLET PO PRN ×2 (00:45→20:15)
[2016-12-04 05:03] LABS: Basophils % 0.1 % (0.0-0.8); Hemoglobin 11.3 GM/DL (12.0-16.0); Immature Granulocytes % 0.4 %; Immature Granulocytes Absolute 0.04 #; Lymphocytes # 0.8 10*3/uL (1.4-4.0); Lymphocytes % 7.3 % (21.3-54.2); Mean Corpuscular HGB Conc 32.3 GM/DL (32-36); Mean Corpuscular Hemoglobin 30 PG (27-34); Mean Corpuscular Volume 93.3 FL (87-102); Mean Platelet Volume 10.7 FL (9.6-12.0); Monocytes # 0.4 10*3/uL (0.11-0.8); Monocytes % 3.7 % (1.7-12.7); Neutrophils # 9.1 10*3/uL (1.4-7.4); Neutrophils % 88.5 % (38.7-73.9); Platelet Count 211 T/CUMM (130-400); Red Blood Count 3.75 MC/CUMM (3.8-5.5); Red Cell Distribution Width 14.5 % (9.3-17.3); White Blood Count 10.3 T/CUMM (4-12)
[2016-12-04 05:33] LABS: Magnesium 2.6 MG/DL (1.8-2.4); Osmolality,Calculated 292.7 MOS/KG (273-304); Potassium 4.4 MMOL/L (3.5-5.1)
[2016-12-04 06:10] LABS: Risk Ratio 4.73; VLDL CHOLESTEROL 32.4 MG/DL
[2016-12-04] MEDS: ASPIRIN 325 MG TABLET PO SCH (08:36)
[2016-12-04] MEDS: CINACALCET 30 MG TABLET PO SCH (08:36)
[2016-12-04] MEDS: hydrALAZINE 25 MG TABLET PO SCH ×3 (08:37→20:14)
[2016-12-04] MEDS: PANTOPRAZOLE 40 MG TABLET PO SCH (08:37)
[2016-12-04] MEDS: CARVEDILOL 25 MG TABLET PO SCH ×2 (08:37→20:14)
[2016-12-04] MEDS: FAMOTIDINE 20 MG TABLET PO SCH ×2 (08:37→20:14)
[2016-12-04] MEDS: amLODIPine 10 MG TABLET PO SCH (08:37)
[2016-12-04] MEDS: predniSONE 20 MG TABLET PO SCH ×2 (08:38→20:14)
[2016-12-04] MEDS: SEVELAMER CARBONATE 800 MG TABLET PO SCH ×3 (08:38→16:44)
[2016-12-04] MEDS: INSULIN ASPART PROTAMINE/ASPART 70/30 100 UNIT/ML SUBCUT SCH ×3 (08:38→16:12)
[2016-12-04] MEDS: FUROSEMIDE 100 MG/10 ML VIAL IV SCH ×2 (08:38→16:44)
[2016-12-04] MEDS: diphenhydrAMINE CAP 50 MG CAPSULE PO SCH ×2 (08:38→20:14)
[2016-12-04] MEDS: INSULIN REGULAR 100 UNIT/ML SUBCUT SCH ×2 (08:42→16:12)
[2016-12-04] MEDS: INSULIN LISPRO 100 UNIT/ML SUBCUT SCH ×2 (08:43→16:12)
--- NOTE | 2016-12-04 08:46 | Nephrology Progress Note ---
Nephrology - PN: Subj Interval history: The patient is resting comfortably no acute changes. She tolerated dialysis on yesterday. Her breathing is stable. She mentions she feels much better. No shortness of breath or chest pain. Exam (PN)-Nephrology - Vital Signs Vital signs: Period Temp Pulse Resp BP Sys/Parish Pulse Ox Last 24 Hr 97.8 F-99.4 F 68-84 16-22 142-177/64-96 79-97 - General Appearance General appearance: well-developed, well-nourished EENT: ATNC Neck: supple Respiratory: clear Cardiology: regular rate, regular rhythm Gastrointestinal: normoactive bowel sounds, no tenderness Neurologic: alert and oriented x3 Musculoskeletal: no deformities, no clubbing Psychiatric: mood/affect appropriate - Lab 12/04/16 03:58 12/04/16 03:59 Most recent lab results Calcium 8.0 MG/DL (8.5-10.1) L 12/04/16 03:59 Magnesium 2.6 MG/DL (1.8-2.4) H 12/04/16 03:59 Assessment and Plan (1) Chest pain Status: Acute Current Visit: Yes (2) Congestive heart failure Status: Resolved Assessment and plan: This has improved. Current Visit: Yes Qualifiers: Congestive heart failure type: diastolic Congestive heart failure chronicity: acute on chronic Qualified Code(s): I50.33 - Acute on chronic diastolic (congestive) heart failure (3) End stage renal disease on dialysis Status: Chronic Assessment and plan: On hemodialysis MWF schedule. Current Visit: Yes (4) Diabetes Status: Chronic Current Visit: Yes Qualifiers: Diabetes mellitus type: type 2 Diabetes mellitus complication status: with kidney complications Diabetes mellitus complication detail: with chronic kidney disease Chronic kidney disease stage: on chronic dialysis (5) Hypertension Status: Chronic Current Visit: Yes Qualifiers: Hypertension type: essential hypertension Qualified Code(s): I10 - Essential (primary) hypertension (6) Morbid obesity Status: Chronic Current Visit: Yes
--- NOTE | 2016-12-04 09:08 | Internal Med Progress Note ---
Assessment and Plan (1) Congestive heart failure Status: Acute Assessment and plan: . Possibly cath planned in next working day. Current Visit: Yes Qualifiers: Congestive heart failure type: diastolic Congestive heart failure chronicity: acute on chronic Qualified Code(s): I50.33 - Acute on chronic diastolic (congestive) heart failure (2) Pneumonia Status: Acute Assessment and plan: Started on Levaquin dose 1 done, 750 mg every 48 hours Current Visit: Yes Qualifiers: Laterality: unspecified laterality (3) End stage renal disease on dialysis Status: Chronic Assessment and plan: Continue dialysis Current Visit: Yes (4) Hypertension Status: Chronic Assessment and plan: Continue antihypertensives Current Visit: Yes Qualifiers: Hypertension type: essential hypertension Qualified Code(s): I10 - Essential (primary) hypertension (5) Morbid obesity Status: Chronic Current Visit: Yes (6) Diabetes Status: Chronic Assessment and plan: Continue insulin, POC glucose checks before meals and at bedtime Current Visit: Yes Qualifiers: Diabetes mellitus type: type 2 Diabetes mellitus complication status: with kidney complications Diabetes mellitus complication detail: with chronic kidney disease Chronic kidney disease stage: on chronic dialysis Internal Medicine - PN: Subj Interval history: PCP: Dr. Teran, Patient seen and examined at telemetry bed, No overnight events reported by the nurse or history given by the patient, Overall feeling better than yesterday. No episodes of chest pain or shortness of breath since yesterday evening. No fever, nausea, vomiting, headaches or dizziness. Yesterday had ultrasound Doppler of the bilateral lower extremities. Consultants on the case: Preventive Medicine Physician, numerical tool programmer Exam (Progress Note) - Constitutional Vitals: Period Temp Pulse Resp BP Sys/Parish Pulse Ox Last 24 Hr 97.8 F-99.4 F 68-84 16-22 142-177/64-96 79-97 Exam: GENERAL APPEARANCE: alert and oriented, pleasant, in no acute distress, morbidly obese female patient. HEENT: normal. EYES: extraocular movement intact (EOMI), conjunctiva clear, normal. NECK/THYROID: neck supple, full range of motion, no cervical lymphadenopathy, no thyromegaly. HEART: regular rate and rhythm, no murmurs, rubs, gallops. LUNGS: clear to auscultation bilaterally, no wheezes, rales, rhonchi. ABDOMEN: soft, nontender, nondistended, no organomegaly , bowel sounds present. EXTREMITIES: No edema NEUROLOGIC: alert and oriented, cranial nerves 2-12 grossly intact, Results - Labs CBC & BMP: 12/04/16 03:58 12/04/16 03:59 Lab Results: I have reviewed the past 24 hour labs - Impressions On 12/03/2016, Normal bilateral lower extremity color flow venous Doppler study. No evidence of acute DVT
--- NOTE | 2016-12-04 12:26 | Cardiology Progress Note ---
Jacob Castano Vanessa, RN, am scribing for, and in the presence of, Tan Mancia MD 12:25. Assessment and Plan - Time spent with patient Time spent with patient: Greater than 30 minutes (1) Chest pain Status: Acute Assessment and plan: 12/03/16 ASSESSMENT/PLAN: Patient has return with shortness of breath and findings of pulmonary edema with history of recent normal LVEF by echo. She has some chest heaviness with activity suggestive of angina. She has multiple risk factors for coronary disease. He is on good medical therapy for coronary disease. Plan/recommendations: Treat her heart failure through dialysis Aspirin has been added Venous Doppler -- is negative Left heart cath and possible PTCA or stent on Saturday. Left heart cath and possible PTCA or stent were discussed with the patient. The risk of the procedure include but are not limited to a small risk of injury to the vessel, abnormal heart rhythm, stroke, heart attack, need for emergent surgery, contrast reaction, restenosis, or . The patient voices understanding, agrees with the plan, and desires to proceed with the heart catheterization. Will premedicate for prior contrast allergy 12/04/16: ASSESSMENT/PLAN: 1. CHEST PAIN -cardiac biomarkers normal, EKG without acute ischemia. Symptoms are suspicious for angina. No further chest pain, heaviness, tightness today. Continue as present. Cardiac catheterization tentatively for 12/05/ for formal evaluation. I rediscussed the heart cath for the patient. She is ready to proceed. It will be done tomorrow 2. SOB AND ORTHOPNEA -improved today. Able to lie flat during physical exam. However, this is also suspicious for angina. Scheduled for left heart catheterization on Saturday. 3. ACUTE ON CHRONIC DIASTOLIC CHF -echocardiogram November 2016 with EF of 60%, diastolic dysfunction, NYHA class III-IV. Continue ASA, beta-arleen, diuretics. AMADO inhibitors avoided due to renal dysfunction. 4. HYPERTENSION -remains suboptimally controlled. 5. DYSLIPIDEMIA -FLP this morning with triglycerides 162 and total cholesterol 241. Will add statin. We will add Crestor 5 mg p.o. nightly. 6. CHRONIC RENAL FAILURE REQUIRING HD -routine hemodialysis yesterday. Additional recommendations per nephrology. 7. UNTREATED SLEEP APNEA -sleep medicine consult is pending. 8. DIABETES -defer plan of care to internal medicine. Accu-Chek levels 200 and greater. 9. MORBID OBESITY -dietary counseling 10. IVP DYE ALLERGY -will require premedication prior to cardiac cath. Benadryl , Pepcid has been ordered. 11. PERIPHERAL EDEMA -some improvement today. Extremities are less painful. Venous Doppler ultrasound bilateral lower extremities was negative for DVT finding. Current Visit: Yes (2) Shortness of breath Status: Acute Assessment and plan: SEE PLAN OF CARE LISTED ABOVE. Current Visit: Yes (3) Orthopnea Status: Acute Assessment and plan: SEE PLAN OF CARE LISTED ABOVE. Current Visit: Yes (4) Peripheral edema Status: Acute Assessment and plan: SEE PLAN OF CARE LISTED ABOVE. Current Visit: Yes (5) Allergy to IVP dye Status: Chronic Assessment and plan: SEE PLAN OF CARE LISTED ABOVE. Current Visit: Yes (6) End stage renal disease on dialysis Status: Chronic Assessment and plan: SEE PLAN OF CARE LISTED ABOVE. Current Visit: Yes (7) Hypertension Status: Chronic Assessment and plan: SEE PLAN OF CARE LISTED ABOVE. Current Visit: Yes Qualifiers: Hypertension type: essential hypertension Qualified Code(s): I10 - Essential (primary) hypertension (8) Morbid obesity Status: Chronic Assessment and plan: SEE PLAN OF CARE LISTED ABOVE. Current Visit: Yes (9) Obstructive sleep apnea Status: Chronic Assessment and plan: SEE PLAN OF CARE LISTED ABOVE. Current Visit: Yes (10) Dyslipidemia Status: Chronic Current Visit: Yes (11) Diabetes Status: Chronic Assessment and plan: SEE PLAN OF CARE LISTED ABOVE. Current Visit: Yes Qualifiers: Diabetes mellitus type: type 2 Diabetes mellitus complication status: with kidney complications Diabetes mellitus complication detail: with chronic kidney disease Chronic kidney disease stage: on chronic dialysis (12) Congestive heart failure Status: Resolved Assessment and plan: SEE PLAN OF CARE LISTED ABOVE. Current Visit: Yes Qualifiers: Congestive heart failure type: diastolic Congestive heart failure chronicity: acute on chronic Qualified Code(s): I50.33 - Acute on chronic diastolic (congestive) heart failure Cardiology - PN: Subj Interval history: PRIMARY CABLE SPLICING TECHNICIAN: DR. MENDEZ SUMMARY: Ms. Carney is a 66-year-old white female with risk factors significant for: Hypertension, diabetes, sedentary lifestyle, morbid obesity, dyslipidemia, family history of premature CAD. Past medical history includes end-stage renal disease with routine hemodialysis MWF, and she has untreated obstructive sleep apnea. Last cardiac catheterization in January 2004 revealed ejection fraction 60% and no obstructive or fixed coronary artery disease. Most recent echocardiogram November 2016 with ejection fraction 60%, moderate LVH, RVSP 50 mmHg. Patient was admitted to [facility] telemetry after presenting to the ER on December 03 with complaints of increasing shortness of breath and exertional chest heaviness. She had become significantly short of breath the previous day while walking out of latter day, and she described her chest discomfort as a substernal "heaviness". Associated symptoms include mild diaphoresis and extreme weakness with walking. She was previously hospitalized in November 2016 for similar symptoms, it was felt to be atypical for angina, and patient was treated for bronchitis. Her condition did improve, but now dyspnea has returned , and patient states it is worse than previously. Positive for 2-3 pillow orthopnea and tachypnea on admission. Cardiac biomarkers normal. EKG with nonspecific changes but no acute ischemia. Venous ultrasound bilateral lower extremities negative for DVT finding. Sleep medicine consulted to evaluate untreated sleep apnea. Dialysis has been continued, and she is being diuresed with IV Lasix. December: Ms. Carney appears to be feeling much better today. She is sitting up in bedside chair playing game on cell phone, and she is in no acute respiratory distress. Dialyzed yesterday, and she is not orthopneic today. Able to lie completely flat during physical exam with no shortness of breath or complaint. Reports that she feels her breathing is much better today. No chest pain or discomfort. Ambulating to bathroom and around room with no exertional chest tightness or discomfort, but she does have some easy fatigability. Venous Dopplers of bilateral lower extremities to evaluate painful lower extremity edema was normal and no findings for DVT. Extremities less painful today. Labs reviewed. H&H stable. Potassium 4.4. Magnesium 2.6. Creatinine decreased to 7.4 with BUN 51. Fasting lipids noted. Sinus rhythm with, pulse rate 70s, no disturbance. Systolic BP remains elevated ranging 150-180 mmHg. Patient is scheduled for left heart catheterization tomorrow morning to define coronary anatomy and evaluate for significant obstructive coronary artery disease or other as source for her symptoms. Exam (Progress Note) - Constitutional Vitals: Period Temp Pulse Resp BP Sys/Parish Pulse Ox Last 24 Hr 97.8 F-99.4 F 68-84 16-22 142-177/64-96 79-97 Exam: General: No acute distress. Morbidly obese. Pleasant and cooperative. Tachypnea and orthopnea improved today. HEENT: [PERRL, normocephalic, atraumatic. Mucous membranes moist. No jaundice noted. Conjunctiva moist and clear, sclerae anicteric]. Mallampati Airway Clas III Neck: Unable to assess JVD due to habitus. No thyromegaly or lymphadenopathy noted. No carotid bruit Cardiac: Regular rate and rhythm. No obvious murmur, rub or gallop. Lungs: Decreased lung sounds throughout. Supplemental oxygen via nasal cannula Abdomen: Soft, bowel sounds normoactive, obese. Nontender and nondistended. No abdominal bruit or thrill noted. No masses noted. Musculoskeletal: Mild fluid collection. Decreased range of motion is noted. Extremities: No clubbing, cyanosis noted. [1+ bilateral lower extremity edema noted.] Upper extremity pulses 2+. Lower extremity pulses 2+. Capillary refill less than 3 seconds. Skin: Skin warm,dry, intact. No unusual lesions or rashes. No skin breakdown appreciated. Neuro: Awake, alert and oriented 3. Moves all extremities well without hemiparesis or paralysis. No essential tremor is appreciated. Result/EKG - Labs CBC & BMP: 12/04/16 03:58 12/04/16 03:59 Lab Results: I have reviewed the past 24 hour labs Labs: Laboratory Results - last 24 hr 12/03/16 12/03/16 12/03/16 11:28 16:05 16:24 WBC RBC Hgb Hct MCV MCH MCHC RDW Plt Count MPV Neut % (Auto) Lymph % (Auto) Hawkins % (Auto) Eos % (Auto) Baso % (Auto) Neut # (Auto) Lymph # (Auto) Hawkins # (Auto) Eos # (Auto) Baso # (Auto) Immature Gran % Nucleated RBC % Immature Gran # Nucleated RBCs # INR 1.1 PT Patient/Control Mix 11.4 Sodium Potassium Chloride Carbon Dioxide Anion Gap BUN Creatinine GFR Calculation BUN/Creatinine Ratio Glucose POC Glucose 198 H 192 H Calculated Osmolality Calcium Magnesium Triglycerides Cholesterol LDL Cholesterol VLDL Cholesterol HDL Cholesterol Heart Disease Risk Ratio 12/03/16 12/04/16 12/04/16 19:32 03:58 03:58 WBC 10.3 RBC 3.75 L Hgb 11.3 L Hct 35.0 L MCV 93.3 MCH 30 MCHC 32.3 RDW 14.5 Plt Count 211 MPV 10.7 Neut % (Auto) 88.5 H Lymph % (Auto) 7.3 L Hawkins % (Auto) 3.7 Eos % (Auto) 0.0 Baso % (Auto) 0.1 Neut # (Auto) 9.1 H Lymph # (Auto) 0.8 L Hawkins # (Auto) 0.4 Eos # (Auto) 0.0 Baso # (Auto) 0.0 Immature Gran % 0.4 Nucleated RBC % 0.0 Immature Gran # 0.04 Nucleated RBCs # 0.00 INR PT Patient/Control Mix Sodium Potassium Chloride Carbon Dioxide Anion Gap BUN Creatinine GFR Calculation BUN/Creatinine Ratio Glucose POC Glucose 312 H Calculated Osmolality Calcium Magnesium Triglycerides 162 H Cholesterol 241 H LDL Cholesterol 146.0 VLDL Cholesterol 32.4 HDL Cholesterol 51 Heart Disease Risk Ratio 4.73 12/04/16 12/04/16 03:59 07:09 WBC RBC Hgb Hct MCV MCH MCHC RDW Plt Count MPV Neut % (Auto) Lymph % (Auto) Hawkins % (Auto) Eos % (Auto) Baso % (Auto) Neut # (Auto) Lymph # (Auto) Hawkins # (Auto) Eos # (Auto) Baso # (Auto) Immature Gran % Nucleated RBC % Immature Gran # Nucleated RBCs # INR PT Patient/Control Mix Sodium 138 Potassium 4.4 Chloride 99 Carbon Dioxide 27 Anion Gap 16.4 H BUN 51 H Creatinine 7.40 H GFR Calculation 8 BUN/Creatinine Ratio 6.00 Glucose 163 H POC Glucose 195 H Calculated Osmolality 292.7 Calcium 8.0 L Magnesium 2.6 H Triglycerides Cholesterol LDL Cholesterol VLDL Cholesterol HDL Cholesterol Heart Disease Risk Ratio - EKG EKG results: interpreted by me, no acute changes EKG shows: sinus rhythm (Occasional PVC) I, Tan Mancia MD, personally performed the services described in this documentation, ascribed by Veronica James RN in my presence, and it is both accurate and complete .
[2016-12-04] MEDS ORDERED: MAGNESIUM SULF RIDER 2 GM in PREMIX 1 EACH IV PRN (12:28)
[2016-12-04] MEDS ORDERED: POTASSIUM CHLORIDE RIDER 10 MEQ in PREMIX 1 EACH IV PRN (12:28)
[2016-12-04] MEDS: ALLOPURINOL 300 MG TABLET PO SCH (20:14)
[2016-12-04] MEDS: ROSUVASTATIN 10 MG TABLET PO SCH (20:15)
[2016-12-04] MEDS: TRAVOPROST 0.004% OPH SOLN 2.5 ML BOTTLE BOTH EYES SCH (20:16)
[2016-12-04] MEDS: ENOXAPARIN 30 MG/0.3 ML SYRINGE SUBCUT SCH (20:17)
[2016-12-04] MEDS: GABAPENTIN 100 MG CAPSULE PO SCH (23:27)
[2016-12-05 05:56] LABS: Basophils % 0.1 % (0.0-0.8); Hematocrit 33.9 VOL% (35.7-47.0); Hemoglobin 11.3 GM/DL (12.0-16.0); Immature Granulocytes % 0.8 %; Immature Granulocytes Absolute 0.11 #; Lymphocytes # 0.9 10*3/uL (1.4-4.0); Lymphocytes % 6.9 % (21.3-54.2); Mean Corpuscular HGB Conc 33.3 GM/DL (32-36); Mean Corpuscular Hemoglobin 31 PG (27-34); Mean Corpuscular Volume 92.9 FL (87-102); Mean Platelet Volume 10.6 FL (9.6-12.0); Monocytes # 0.5 10*3/uL (0.11-0.8); Monocytes % 3.8 % (1.7-12.7); Neutrophils # 12.1 10*3/uL (1.4-7.4); Neutrophils % 88.4 % (38.7-73.9); Platelet Count 216 T/CUMM (130-400); Red Blood Count 3.65 MC/CUMM (3.8-5.5); Red Cell Distribution Width 14.6 % (9.3-17.3); White Blood Count 13.7 T/CUMM (4-12)
[2016-12-05 06:27] LABS: Calcium 7.2 MG/DL (8.5-10.1); Magnesium 2.7 MG/DL (1.8-2.4); Osmolality,Calculated 300.1 MOS/KG (273-304); Potassium 4.9 MMOL/L (3.5-5.1)
[2016-12-05] MEDS ORDERED: SODIUM CHLORIDE 0.9% 1,000 ML IV SCH (07:00)
[2016-12-05] MEDS: INSULIN REGULAR 100 UNIT/ML SUBCUT SCH ×2 (08:00→17:26)
[2016-12-05] MEDS ORDERED: DIAZEPAM 5 MG TABLET PO ONE (08:00)
[2016-12-05] MEDS: INSULIN ASPART PROTAMINE/ASPART 70/30 100 UNIT/ML SUBCUT SCH ×3 (08:00→17:05)
[2016-12-05] MEDS ORDERED: diphenhydrAMINE CAP 25 MG CAPSULE PO ONE (08:00)
[2016-12-05] MEDS: SEVELAMER CARBONATE 800 MG TABLET PO SCH ×3 (08:00→17:04)
[2016-12-05] MEDS: ASPIRIN 325 MG TABLET PO SCH (08:59)
[2016-12-05] MEDS: amLODIPine 10 MG TABLET PO SCH (08:59)
[2016-12-05] MEDS: predniSONE 20 MG TABLET PO SCH ×2 (08:59→21:35)
[2016-12-05] MEDS: CARVEDILOL 25 MG TABLET PO SCH ×2 (08:59→21:35)
[2016-12-05] MEDS: FAMOTIDINE 20 MG TABLET PO SCH ×2 (08:59→21:35)
[2016-12-05] MEDS: diphenhydrAMINE CAP 50 MG CAPSULE PO SCH ×2 (09:00→21:36)
[2016-12-05] MEDS: LEVOFLOXACIN INJ 750 MG in PREMIX 1 EACH IV SCH ×2 (09:00→15:39)
[2016-12-05] MEDS: PANTOPRAZOLE 40 MG TABLET PO SCH (09:00)
[2016-12-05] MEDS: GABAPENTIN 100 MG CAPSULE PO SCH ×3 (09:00→21:35)
[2016-12-05] MEDS: hydrALAZINE 25 MG TABLET PO SCH ×3 (09:00→21:35)
[2016-12-05] MEDS: INSULIN LISPRO 100 UNIT/ML SUBCUT SCH ×2 (09:00→17:31)
--- NOTE | 2016-12-05 09:04 | Internal Med Progress Note ---
Assessment and Plan (1) Congestive heart failure Status: Resolved Assessment and plan: . Cath today, continue meds as advised by cardiologists, possible discharge tomorro Current Visit: Yes Qualifiers: Qualified Code(s): I50.33 - Acute on chronic diastolic (congestive) heart failure (2) Pneumonia Status: Acute Assessment and plan: Started on Levaquin dose 1 done, 750 mg every 48 hours Current Visit: Yes (3) End stage renal disease on dialysis Status: Chronic Assessment and plan: Continue dialysis Current Visit: Yes (4) Hypertension Status: Chronic Assessment and plan: Continue antihypertensives Current Visit: Yes Qualifiers: Qualified Code(s): I10 - Essential (primary) hypertension (5) Morbid obesity Status: Chronic Current Visit: Yes (6) Diabetes Status: Chronic Assessment and plan: Continue insulin, POC glucose checks before meals and at bedtime Current Visit: Yes Internal Medicine - PN: Subj Interval history: PCP: Dr. Teran, Patient seen and examined at telemetry bed, No overnight events reported by the nurse or history given by the patient, did not get good sleep, No episodes of chest pain or shortness of breath since yesterday evening. No fever, nausea, vomiting, headaches or dizziness. Cath today, Dialysis today Consultants on the case: Hairspring Cutter, historiography teacher Exam (Progress Note) - Constitutional Vitals: Period Temp Pulse Resp BP Sys/Parish Pulse Ox Last 24 Hr 97.0 F-98.7 F 71-89 18-22 121-167/58-74 90-99 Exam: GENERAL APPEARANCE: alert and oriented, pleasant, in no acute distress, morbidly obese female patient. HEENT: normal. EYES: extraocular movement intact (EOMI), conjunctiva clear, normal. NECK/THYROID: neck supple, full range of motion, no cervical lymphadenopathy, no thyromegaly. HEART: regular rate and rhythm, no murmurs, rubs, gallops. LUNGS: clear to auscultation bilaterally, no wheezes, rales, rhonchi. ABDOMEN: soft, nontender, nondistended, no organomegaly , bowel sounds present. EXTREMITIES: No edema NEUROLOGIC: alert and oriented, cranial nerves 2-12 grossly intact, Results - Labs CBC & BMP: 12/05/16 05:18 12/05/16 05:18 Lab Results: I have reviewed the past 24 hour labs
[2016-12-05] MEDS ORDERED: MIDAZOLAM 2 MG/2 ML VIAL ONE (09:55)
[2016-12-05] MEDS ORDERED: LIDOCAINE 1% 20 ML VIAL ONE (09:55)
[2016-12-05] MEDS ORDERED: MEPERIDINE 25 MG/1 ML VIAL ONE (09:55)
[2016-12-05] MEDS ORDERED: HEPARIN 5,000 UNIT/1 ML VIAL ONE (09:56)
--- NOTE | 2016-12-05 12:10 | Cardiology Operative Report ---
Date of Procedure:: 12/05/16 Post-op diagnosis: same (Recurrent pulmonary edema, prior echo showed normal LVEF, multiple risk factors for coronary disease, progressive dyspnea on exertion-suspicious for CAD causing many of these signs and symptoms) Procedure: Date of procedure: 12/05/16 Procedure Preformed: Left heart cath Right femoral vein catheter placement Coronary angiography Left ventriculography Angiogram of the right femoral artery Angio-Seal of the right femoral artery-successful Surgeon / Physician: Tan Mancia Operations Specialists: Aniyah Dacosta Post-op diagnosis: same (Recurrent pulmonary edema, prior echo showed normal LVEF, multiple risk factors for coronary disease, progressive dyspnea on exertion-suspicious for CAD causing many of these signs and symptoms) procedure: The patient was prepped and draped in usual manner. Entered the right femoral artery via the Seldinger technique. I used a sheath and then used a JL4 and engaged left coronary. --She denies sheet for exact catheters that were used. multiple views were taken. I then exchanged for a JR4. Multiple views of the right coronary were taken. I then exchanged for an angled pigtail. I crossed the valve. Left ventricular end-diastolic pressures measured. Left ventriculography was done. Left ventricle pullback was done. The catheters were then removed from the patient. Angiogram of the right femoral artery was done either from the follow-through from the LV gram or a separate injection in the right femoral artery. Angio-Seal was done and it was successful. Please see the cath data sheets for the details of catheters used. Complications: None Hemodynamic data: LVEDP was 35 - 40 mmHg. Angiographic data: The left main coronary was large and had minimal luminal irregularities. The left anterior descending artery was large and had minimal luminal irregularities The left circumflex system was moderate to large and had minimal luminal irregularities The right coronary artery was large in size, dominant vessel with the PDA. At the midportion there was a 30-40% eccentric lesion. Otherwise her minimal luminal irregularities GARCIA left ventriculography revealed Moderate global left ventricular systolic dysfunction.the overall ejection fraction about 40%. . There is no significant mitral regurgitation. Angiogram of the right femoral artery revealed the puncture site to be in a large vessel, above the bifurcation. It was suitable for Angio-Seal. Impression: Minimal luminal irregularities-mild CAD Right dominant coronary arterial system The worst narrowing is about 30 or 40% narrowing of the mid right coronary Moderate global left ventricle systolic function, LVEF is about 40%, global hypokinesis Severe elevation of LVEDP, 35-40 mmHg Angiogram right femoral artery Angio-Seal of the right coronary Right femoral vein sheath placed-for IV access Plan/recommendations: The patient will have risk factors optimized. The patient does not need a coronary intervention. However, her LVEDP is high and her ejection fraction is slightly low. Will review meds and try to optimize for these findings, such as being sure that she is on carvedilol and AMADO inhibitor, if at all possible. The patient will be on antiplatelet medications to include aspirin indefinitely. Patient will be on a statin to slow down progression of disease. She is to get a sleep study to treat her suspected sleep apnea. She will be followed. Sleep apnea could be contributing to part of her problems of recurrent pulmonary edema. Addenda: I saw the patient post-cath. the groin puncture site and distal pulse are stable. vital signs are stable and the patient will be observed closely overnight. Specimens: none sent Estimated blood loss: minimal Condition: stable Anesthesia: local, conscious sedation Disposition: floor Anesthesia: local, minimal conscious sedation Surgeon / Physician: Tan Mancia Operations Specialists: other Estimated blood loss: minimal Specimens: none sent Condition: stable Disposition: floor
--- NOTE | 2016-12-05 12:43 | Nephrology Progress Note ---
Nephrology - PN: Subj Interval history: She has just had cardiac cath. She is seen in dialysis. Cardiac cath did not show significant coronary disease. No stent was required. Dialysis will be done with no heparin Exam (PN)-Nephrology - Vital Signs Vital signs: Period Temp Pulse Resp BP Sys/Parish Pulse Ox Last 24 Hr 97.5 F-98.7 F 71-89 18-22 121-167/58-70 90-99 Exam: Gen.: Alert and oriented x3. ENT: Pupils equal round reactive to light. EOMs intact. Mucous membranes moist. Neck: Supple. No JVD or bruit. Cardiovascular: Regular rate and rhythm. No murmur rub or gallop Lungs: Clear Abdomen: Soft. Nontender. Positive bowel sounds. No organomegaly Extremities: Trace edema - Lab 12/05/16 05:18 12/05/16 05:18 Most recent lab results Calcium 7.2 MG/DL (8.5-10.1) L 12/05/16 05:18 Magnesium 2.7 MG/DL (1.8-2.4) H 12/05/16 05:18 Assessment and Plan (1) Shortness of breath Status: Acute Current Visit: Yes (2) Diabetes Status: Chronic Current Visit: Yes Qualifiers: Diabetes mellitus type: type 2 Diabetes mellitus complication status: with kidney complications Diabetes mellitus complication detail: with chronic kidney disease Chronic kidney disease stage: on chronic dialysis (3) End stage renal disease on dialysis Status: Chronic Assessment and plan: 66-year-old woman admitted with: * ESRD. Stable during dialysis. No heparin is being used today * CHF. Compensated * CAD. No severe stenosis. AMADO inhibitor will be added per cardiology recommendations * Hypertension * Diabetes mellitus * Sleep apnea Current Visit: Yes (4) Hypertension Status: Chronic Current Visit: Yes Qualifiers: Hypertension type: essential hypertension Qualified Code(s): I10 - Essential (primary) hypertension (5) Obstructive sleep apnea Status: Chronic Current Visit: Yes
[2016-12-05] MEDS: FUROSEMIDE 100 MG/10 ML VIAL IV SCH (12:47)
[2016-12-05] MEDS: CINACALCET 30 MG TABLET PO SCH (13:30)
--- NOTE | 2016-12-05 16:57 | Sleep Medicine Consult ---
Assessment and Plan (1) Obstructive sleep apnea Status: Chronic Assessment and plan: This patient apparently had significant sleep apnea in the past. I do not have her prior results available. We will place her on auto CPAP while hospitalized but get her back in for reevaluation because of her significant weight loss and comorbidities. Thank you for this consult. Current Visit: Yes (2) Congestive heart failure Status: Resolved Assessment and plan: Untreated sleep apnea can be an exacerbating factor for both diastolic and systolic heart failure. Treatment for obstructive sleep apnea with CPAP in patients with systolic congestive heart failure can improve ejection fraction. Treatment of obstructive sleep apnea in patients with CHF is been also shown to decrease readmission rate. Current Visit: Yes Qualifiers: Congestive heart failure type: diastolic Congestive heart failure chronicity: acute on chronic Qualified Code(s): I50.33 - Acute on chronic diastolic (congestive) heart failure (3) Diabetes Status: Chronic Assessment and plan: The prevalence rate for obstructive sleep apnea in patients with type 2 diabetes can be as high as 86%. Those patients with moderate to severe obstructive sleep apnea are at a greater risk for diabetic nephropathy and neuropathy. Compliance with CPAP therapy for these patients can lead to improvement in glycemic control and improvement in insulin sensitivity. Current Visit: Yes Qualifiers: Diabetes mellitus type: type 2 Diabetes mellitus complication status: with kidney complications Diabetes mellitus complication detail: with chronic kidney disease Chronic kidney disease stage: on chronic dialysis (4) Hypertension Status: Chronic Assessment and plan: The prevalence rate for obstructive sleep apnea patients with hypertension is 35 %. That rate can be as high as 80% in patients who require 4 or more medications for blood pressure control. Current Visit: Yes Qualifiers: Hypertension type: essential hypertension Qualified Code(s): I10 - Essential (primary) hypertension History of Present Illness Chief complaint: Sleep apnea History of present illness: Ms. Carney is a 66 year old female with a history of severe obstructive sleep apnea diagnosed many years ago. She states that after she developed end-stage renal disease and required dialysis, she lost a large amount of weight. She had weight over 350 pounds at the time of her original diagnosis. She quit using her CPAP and has been lost to follow-up in the sleep clinic. She recently tried using her CPAP again with shortness of breath and states that it would not work. Her machine is over 5 years old by her report. She does continue to snore but not as loudly as she used to. She feels that she sleeps fairly well. She does have significant health issues include hypertension, end- stage renal disease, diabetes, and recent problems with congestive heart failure. Home Medications Medication Instructions Recorded Confirmed Type Allopurinol 300 mg PO DAILY 03/12/16 12/03/16 History Amlodipine Besylate 10 mg PO DAILY 03/12/16 12/03/16 History Aspirin [Ecotrin] 81 mg PO DAILY 03/12/16 12/03/16 History Carvedilol [Coreg] 25 mg PO BID 03/12/16 12/03/16 History Cinacalcet [Sensipar] 90 mg PO DAILY 03/12/16 12/03/16 History Gabapentin 100 mg PO TID 03/12/16 12/03/16 History Insulin Aspart Prot/Asp 70/30 18 unit SUBCUT TID 03/12/16 12/03/16 History [NovoLOG Mix 70/30] Travoprost 0.004% Oph Soln 1 drop BOTH EYES BEDTIME 03/12/16 12/03/16 History [Travatan Z] traMADol TAB [Ultram] 100 mg PO BID PRN MDD 4 tablets 03/12/16 12/03/16 History Furosemide 80 mg PO BID 11/14/16 12/03/16 History Sevelamer Carbonate Tab [Renvela 3 tablet PO TID W/MEALS 11/14/16 12/03/16 History Tab] Omeprazole [Prilosec] 20 mg PO BID #60 capsule 11/16/16 12/03/16 Rx hydrALAZINE TAB [Apresoline Tab] 25 mg PO BID #60 tablet 11/16/16 12/03/16 Rx Allergies Allergy/AdvReac Type Severity Reaction Status Date / Time Iodinated Contrast Media - Allergy BLISTER Verified 12/03/16 07:30 Oral and [Iodinated Contrast Media - IV Dye] Review of systems: Otherwise unremarkable from a sleep medicine standpoint. Exam (Pulmonay) H&P - Constitutional Vitals: Period Temp Pulse Resp BP Sys/Parish Pulse Ox Last 24 Hr 97.5 F-98.7 F 72-89 18-22 121-167/58-70 90-96 Exam: She is alert and responsive in no acute distress. Pupils equal round reactive to light and accommodation. Extraocular movements intact. Oropharynx with a class IV Mallampati exam. Neck supple without adenopathy or thyromegaly. Chest with symmetrical breath sounds without focal wheeze, rhonchi, or rales. Cardiac exam reveals a regular rhythm without murmur or gallop. Abdomen obese nontender without palpable hepatosplenomegaly or mass. Extremities without increased edema. Neurologically, she is grossly intact. She moves all extremities with good strength and ambulates with a normal gait. Medical,Surgical,& Family Hx - Medical History Cardio: History of: CHF, CAD (Nonobstructive), Hypertension, Cardiovascular Problems No history of: Cardiac Dysrhythmia, [place] Endocrine: History of: Diabetes Mellitus (IDDM), Dyslipidemia, Endocrine Problems (Morbid obesity) Respiratory: History of: Obstructive Sleep Apnea (Not using CPAP for last 4 months) Renal: History of: Renal (Kidney) Cancer (CKD), Dialysis (-W-), Renal Failure Gastrointestinal: History of: GERD - Surgical History Cardiac Surgeries: Sugical HX of: Cardiac Catheterization (2003) HEENT Surgeries: Surgical HX of: Eye Surgery (Bilateral cataract) Reproductive Surgeries: Surgical HX of;: Hysterectomy - Family History Family History: Reports;: Family Diabetes (Siblings), Family Heart Disease, Family Hypertension (Mother and siblings), Family Stroke - Social History Smoking Status: Never smoker Frequency of Alcohol Use: None Type of Drug Use: None Results - Labs CBC & BMP: 12/05/16 05:18 12/05/16 05:18 Lab Results: I have reviewed the past 24 hour labs Quality Measures - VTE Contraindication to Pharmacological VTE Prophylaxis: High Risk of Bleeding
[2016-12-05] MEDS ORDERED: LEVOFLOXACIN INJ 750 MG in PREMIX 1 EACH IV SCH (17:00)
[2016-12-05] MEDS: LISINOPRIL 2.5 MG TABLET PO SCH (17:05)
[2016-12-05] MEDS: ROSUVASTATIN 10 MG TABLET PO SCH ×2 (21:35→21:38)
[2016-12-05] MEDS: ENOXAPARIN 30 MG/0.3 ML SYRINGE SUBCUT SCH (21:35)
[2016-12-05] MEDS: ALLOPURINOL 300 MG TABLET PO SCH (21:36)
[2016-12-05] MEDS: TRAVOPROST 0.004% OPH SOLN 2.5 ML BOTTLE BOTH EYES SCH (21:37)
[2016-12-06 04:05] LABS: Basophils % 0.1 % (0.0-0.8); Hemoglobin 11.6 GM/DL (12.0-16.0); Immature Granulocytes % 0.7 %; Immature Granulocytes Absolute 0.09 #; Lymphocytes % 7.3 % (21.3-54.2); Mean Corpuscular HGB Conc 33.1 GM/DL (32-36); Mean Corpuscular Hemoglobin 31 PG (27-34); Mean Corpuscular Volume 93.6 FL (87-102); Mean Platelet Volume 10.7 FL (9.6-12.0); Monocytes # 0.6 10*3/uL (0.11-0.8); Monocytes % 4.7 % (1.7-12.7); Neutrophils # 11.6 10*3/uL (1.4-7.4); Neutrophils % 87.2 % (38.7-73.9); Platelet Count 224 T/CUMM (130-400); Red Blood Count 3.74 MC/CUMM (3.8-5.5); Red Cell Distribution Width 14.6 % (9.3-17.3); White Blood Count 13.2 T/CUMM (4-12)
[2016-12-06 04:40] LABS: Calcium 7.3 MG/DL (8.5-10.1); Magnesium 2.5 MG/DL (1.8-2.4); Osmolality,Calculated 293.1 MOS/KG (273-304); Potassium 4.9 MMOL/L (3.5-5.1)
[2016-12-06] MEDS: SEVELAMER CARBONATE 800 MG TABLET PO SCH ×2 (08:28→12:31)
[2016-12-06] MEDS: GABAPENTIN 100 MG CAPSULE PO SCH (09:27)
[2016-12-06] MEDS: amLODIPine 10 MG TABLET PO SCH (09:27)
[2016-12-06] MEDS: ASPIRIN 325 MG TABLET PO SCH (09:27)
[2016-12-06] MEDS: predniSONE 20 MG TABLET PO SCH (09:27)
[2016-12-06] MEDS: FAMOTIDINE 20 MG TABLET PO SCH (09:29)
[2016-12-06] MEDS: diphenhydrAMINE CAP 50 MG CAPSULE PO SCH (09:29)
[2016-12-06] MEDS: hydrALAZINE 25 MG TABLET PO SCH (09:29)
[2016-12-06] MEDS: PANTOPRAZOLE 40 MG TABLET PO SCH (09:30)
[2016-12-06] MEDS: CARVEDILOL 25 MG TABLET PO SCH (09:30)
[2016-12-06] MEDS: LISINOPRIL 2.5 MG TABLET PO SCH (09:31)
--- NOTE | 2016-12-06 09:32 | Discharge Summary ---
Hospital Course - Hospital Course Hospital Course: Patient came to the ER for shortness of breath on exertion , getting worse had cough productive of yellowish sputum admitted for possible pneumonia,Acute on chronic diastolic (congestive) heart failure, Also had c/o leg swelling ( US BL LE negative for DVT) Pet Trainer was consulted,Cxr showed increased volume overload, Cardiac cath was done on 12/05/16, did not need any coronary intervention. the medications adjusted as per office machines teacher recommendations, daily labs were followed, ESRD on dialysis, continued during hospital stay, uses CPAP for obstructive sleep apnea,not using CPAP as advised, sleep study consult done for recurrent pulmonary edema,, plan to f/u as outpt. history of diabetes on insulin, Diagnosis - Discharge Diagnosis (1) Congestive heart failure Status: Chronic (2) Pneumonia Status: Acute (3) End stage renal disease on dialysis Status: Chronic (4) Hypertension Status: Chronic (5) Morbid obesity Status: Chronic (6) Diabetes Status: Chronic Specialty Discharge - Follow Up or Referrals Follow up with: Sean Teran MD [Physician] - 2 Weeks (December 19, 2016 at 10:00) Ricardo Krause MD [Physician] - 01/03/17 9:30 am Discharge Plan - Discharge Data Disposition: Disch To Home/Self Care Condition at Discharge: Stable Discharge Diet: low fat, low cholesterol, low salt diet Activity: resume usual activities as tolerated - Discharge Medications New Levofloxacin Tab [Levaquin Tab] 250 mg PO DAILY #3 tablet Continue Travoprost 0.004% Oph Soln [Travatan Z] 1 drop BOTH EYES BEDTIME Cinacalcet [Sensipar] 90 mg PO DAILY Aspirin [Ecotrin] 81 mg PO DAILY Amlodipine Besylate 10 mg PO DAILY Gabapentin 100 mg PO TID traMADol TAB [Ultram] 100 mg PO BID PRN MDD 4 tablets PRN Reason: Pain Carvedilol [Coreg] 25 mg PO BID Allopurinol 300 mg PO DAILY Insulin Aspart Prot/Asp 70/30 [NovoLOG Mix 70/30] 18 unit SUBCUT TID hydrALAZINE TAB [Apresoline Tab] 25 mg PO BID #60 tablet Sevelamer Carbonate Tab [Renvela Tab] 3 tablet PO TID W/MEALS Furosemide 80 mg PO BID Omeprazole [Prilosec] 20 mg PO BID #60 capsule - Follow Up or Referral Follow Up: Sean Teran MD [Physician] - 2 Weeks (December 19, 2016 at 10:00) Ricardo Krause MD [Physician] - 01/03/17 9:30 am - Forms/Instructions Instructions: Heart Failure (DC), Bacterial Pneumonia (DC) Exam - Constitutional Vitals: Period Temp Pulse Resp BP Sys/Parish Pulse Ox Last 24 Hr 97.6 F-99.3 F 62-78 16-20 113-163/54-83 92-99 Exam: GENERAL APPEARANCE: alert and oriented, pleasant, in no acute distress, morbidly obese female patient. HEENT: normal. EYES: extraocular movement intact (EOMI), conjunctiva clear, normal. NECK/THYROID: neck supple, full range of motion, no cervical lymphadenopathy, no thyromegaly. HEART: regular rate and rhythm, no murmurs, rubs, gallops. LUNGS: clear to auscultation bilaterally, no wheezes, rales, rhonchi. ABDOMEN: soft, nontender, nondistended, no organomegaly , bowel sounds present. EXTREMITIES: No edema NEUROLOGIC: alert and oriented, cranial nerves 2-12 grossly intact, Discharge Results Procedures and tests throughout hospitalization: Pending Orders 12/03/16 08:31 Blood Culture Stat Labs on day of discharge: Labs from last 24 hours 12/06/16 12/06/16 12/06/16 07:29 03:19 03:19 WBC 13.2 H RBC 3.74 L Hgb 11.6 L Hct 35.0 L MCV 93.6 MCH 31 MCHC 33.1 RDW 14.6 Plt Count 224 MPV 10.7 Neut % (Auto) 87.2 H Lymph % (Auto) 7.3 L [place] % (Auto) 4.7 Eos % (Auto) 0.0 Baso % (Auto) 0.1 Neut # (Auto) 11.6 H Lymph # (Auto) 1.0 L [place] # (Auto) 0.6 Eos # (Auto) 0.0 Baso # (Auto) 0.0 Immature Gran % 0.7 Nucleated RBC % 0.0 Immature Gran # 0.09 Nucleated RBCs # 0.00 Sodium 135 L Potassium 4.9 Chloride 95 L Carbon Dioxide 27 Anion Gap 17.9 H BUN 51 H D Creatinine 7.30 H GFR Calculation 8 BUN/Creatinine Ratio 6.00 Glucose 279 H POC Glucose 241 H Calculated Osmolality 293.1 Calcium 7.3 L Magnesium 2.5 H 12/05/16 12/05/16 12/05/16 21:18 17:12 13:07 WBC RBC Hgb Hct MCV MCH MCHC RDW Plt Count MPV Neut % (Auto) Lymph % (Auto) [place] % (Auto) Eos % (Auto) Baso % (Auto) Neut # (Auto) Lymph # (Auto) [place] # (Auto) Eos # (Auto) Baso # (Auto) Immature Gran % Nucleated RBC % Immature Gran # Nucleated RBCs # Sodium Potassium Chloride Carbon Dioxide Anion Gap BUN Creatinine GFR Calculation BUN/Creatinine Ratio Glucose POC Glucose 227 H 190 H 249 H Calculated Osmolality Calcium Magnesium Preliminary micro results at discharge 12/03/16 08:31 Blood Culture - Preliminary Blood No growth at 3 days 12/03/16 08:31 Blood Culture - Preliminary Blood No growth at 3 days DS: Provider Date of admission: 12/03/16 10:11 Primary care physician: . No PCP Attending physician on admission: Sean Teran MD Consults: 12/03/16 10:12 Consult to Physician [CONS] Routine Comment: Consulting Provider: Nabil Blackwell Consulting Provider Notified: No When should Consulting Provider be notified: Now Person Notified: SHIV Date Notified: 12/03/16 Time Notified: 11:55 12/03/16 10:20 Consult to Physician [CONS] Routine Comment: Consulting Provider: Tay Gimenez Jr. Consulting Provider Notified: No When should Consulting Provider be notified: Now Consult to Specialist Group: Nephrology Person Notified: TOSIN Date Notified: 12/03/16 Time Notified: 11:45 12/03/16 14:48 Consult to Sleep Center [CONS] Routine Reason for Sleep Center: Sleep Center Physician Consult Comment: untreated sleep apnea Discharging clinician: Jewels Pickett MD
[2016-12-06] MEDS: INSULIN LISPRO 100 UNIT/ML SUBCUT SCH ×2 (09:34→12:48)
[2016-12-06] MEDS: INSULIN ASPART PROTAMINE/ASPART 70/30 100 UNIT/ML SUBCUT SCH ×2 (09:35→12:49)
[2016-12-06] MEDS: INSULIN REGULAR 100 UNIT/ML SUBCUT SCH (09:35)
--- NOTE | 2016-12-06 10:17 | Cardiology Progress Note ---
Assessment and Plan - Time spent with patient Time spent with patient: Greater than 30 minutes (1) Allergy to IVP dye Status: Chronic Assessment and plan: SEE PLAN OF CARE LISTED BELOW Current Visit: Yes (2) Congestive heart failure Status: Resolved Assessment and plan: SEE PLAN OF CARE LISTED BELOW Current Visit: Yes Qualifiers: Congestive heart failure type: combined Congestive heart failure chronicity : acute on chronic Qualified Code(s): I50.43 - Acute on chronic combined systolic (congestive) and diastolic (congestive) heart failure (3) Diabetes Status: Chronic Assessment and plan: SEE PLAN OF CARE LISTED BELOW Current Visit: Yes Qualifiers: Diabetes mellitus type: type 2 Diabetes mellitus complication status: with kidney complications Diabetes mellitus complication detail: with chronic kidney disease Chronic kidney disease stage: on chronic dialysis (4) End stage renal disease on dialysis Status: Chronic Assessment and plan: SEE PLAN OF CARE LISTED BELOW Current Visit: Yes (5) Hypertension Status: Chronic Assessment and plan: SEE PLAN OF CARE LISTED BELOW Current Visit: Yes Qualifiers: Hypertension type: essential hypertension Qualified Code(s): I10 - Essential (primary) hypertension (6) Morbid obesity Status: Chronic Assessment and plan: SEE PLAN OF CARE LISTED BELOW (7) Obstructive sleep apnea Status: Chronic Assessment and plan: SEE PLAN OF CARE LISTED BELOW Current Visit: Yes (8) Chest pain Status: Resolved Assessment and plan: SEE PLAN OF CARE LISTED BELOW Current Visit: Yes Cardiology - PN: Subj Interval history: NURSING CLERK: DR. KRAUSE SUMMARY: Ms. Carney, 66BF, followed by Dr. Krause. Risk factors include: Hypertension, dyslipidemia, diabetes, morbid obesity, sedentary lifestyle, family history of premature coronary artery disease. History of end-stage renal disease requiring dialysis M-W-F, untreated MITCHELL. Echo November 14, 2016: EF 60%, moderate LVH, RVSP 50 mmHg + RAP. (Heart cath) LV Gram EF 40%, global hypokinesis. November 03, 2016, presented to the emergency department with chest pain and shortness of breath. Patient was found to be in acute on chronic heart failure (combined systolic and diastolic dysfunction) EF 40%. Initially, patient was [place] Heart Association Classification IV. She was diuresed, medications adjusted for better control and treatment of her acute on chronic CHF. Underwent cardiac catheterization performed by Dr. Mancia December 07, 2016 with the following noted: Impression: Minimal luminal irregularities-mild CAD Right dominant coronary arterial system The worst narrowing is about 30 or 40% narrowing of the mid right coronary Moderate global left ventricle systolic function, LVEF is about 40%, global hypokinesis Severe elevation of LVEDP, 35-40 mmHg Angiogram right femoral artery Angio-Seal of the right coronary Right femoral vein sheath placed-for IV access Tolerated the procedure well without complication and was returned to our telemetry unit in stable condition. This morning, patient is doing well. Denies chest pain, heaviness or tightness. Right groin is soft, free of hematoma or bruit. She is breathing comfortably. During the hospital stay, Dr. Hewitt has seen patient and treated for her for previously untreated sleep apnea. She is ready for discharge per attending. She has been discharged home on ( cardiac meds) aspirin, beta-arleen, hydralazine, Lasix, amlodipine and lipid- lowering agent. (Avoiding AMADO inhibitor for fear of worsening renal insufficiency). She will be given a follow-up appoint with Dr. Krause in 2-3 weeks. At that visit the following will be obtained: BMP, magnesium, CBC and EKG. ASSESSMENT/PLAN: 1. CHEST PAIN - noncardiac chest pain per heart cath. 2. SOB AND ORTHOPNEA - improved. 3. ACUTE ON CHRONIC SYSTOLIC AND DIASTOLIC CHF - Echo November 2016 EF 60%, however LV Gram reveals EF 40%. Initially NYHA Class III-IV. This morning, Class II. On beta-arleen, diuretics. Avoiding AMADO for fear of worsening renal insufficiency. 4. HYPERTENSION - well controlled on various meds. May need outpatient adjustments of medications. 5. DYSLIPIDEMIA - LDL 146. Crestor. 6. CKD REQUIRING HD - routine HD. 7. MORBID OBESITY -received dietary counseling prior to discharge 8. UNTREATED SLEEP APNEA -appreciate Dr. Hewitt's management. THis has now been treated. 9. DIABETES - continue current plan of care. 10. IVP DYE ALLERGY - was treated prophylactically prior to heart cath 11. EDEMA - venous ultrasound bilateral lower extremity negative for DVT. Lower extremity edema may be related to her Norvasc, gabapentin. These medications may be attempted to be weaned outpatient. Exam (Progress Note) - Constitutional Vitals: Period Temp Pulse Resp BP Sys/Parish Pulse Ox Last 24 Hr 97.6 F-99.3 F 62-78 16-20 113-163/54-83 92-99 Exam: General: [Appears well with no apparent distress.] [Pleasant and cooperative. ] [Appears comfortable.] HEENT: [PERRL, normocephalic, atraumatic. Mucous membranes moist. No jaundice noted. Conjunctiva moist and clear, sclerae anicteric] Neck: No JVD/HJR, no thyromegaly or lymphadenopathy noted. No carotid bruit appreciated Cardiac: [Regular rate and rhythm.] [No murmur rub or gallop.] Lungs: [Clear to auscultation without accessory muscle use to assist the respiratory pattern.] Not requiring oxygen Abdomen: Soft, bowel sounds normoactive. Nontender and nondistended. No abdominal bruit or thrill noted. No masses noted. Musculoskeletal: No fluid collection. Decreased range of motion is noted. Extremities: Right groin soft, free of hematoma or bruit. No clubbing, cyanosis noted. [ No edema noted.] Upper extremity pulses 2+. Lower extremity pulses 2+. Capillary refill less than 3 seconds. Skin: No unusual lesions or rashes. No skin breakdown appreciated. Neuro: Awake, alert and oriented 3. Moves all extremities well without hemiparesis or paralysis. No essential tremor is appreciated. Result/EKG - Labs CBC & BMP: 12/06/16 03:19 12/06/16 03:19 Lab Results: I have reviewed the past 24 hour labs Labs: Laboratory Results - last 24 hr 12/05/16 12/05/16 12/05/16 13:07 17:12 21:18 WBC RBC Hgb Hct MCV MCH MCHC RDW Plt Count MPV Neut % (Auto) Lymph % (Auto) [place] % (Auto) Eos % (Auto) Baso % (Auto) Neut # (Auto) Lymph # (Auto) [place] # (Auto) Eos # (Auto) Baso # (Auto) Immature Gran % Nucleated RBC % Immature Gran # Nucleated RBCs # Sodium Potassium Chloride Carbon Dioxide Anion Gap BUN Creatinine GFR Calculation BUN/Creatinine Ratio Glucose POC Glucose 249 H 190 H 227 H Calculated Osmolality Calcium Magnesium 12/06/16 12/06/16 12/06/16 03:19 03:19 07:29 WBC 13.2 H RBC 3.74 L Hgb 11.6 L Hct 35.0 L MCV 93.6 MCH 31 MCHC 33.1 RDW 14.6 Plt Count 224 MPV 10.7 Neut % (Auto) 87.2 H Lymph % (Auto) 7.3 L [place] % (Auto) 4.7 Eos % (Auto) 0.0 Baso % (Auto) 0.1 Neut # (Auto) 11.6 H Lymph # (Auto) 1.0 L [place] # (Auto) 0.6 Eos # (Auto) 0.0 Baso # (Auto) 0.0 Immature Gran % 0.7 Nucleated RBC % 0.0 Immature Gran # 0.09 Nucleated RBCs # 0.00 Sodium 135 L Potassium 4.9 Chloride 95 L Carbon Dioxide 27 Anion Gap 17.9 H BUN 51 H D Creatinine 7.30 H GFR Calculation 8 BUN/Creatinine Ratio 6.00 Glucose 279 H POC Glucose 241 H Calculated Osmolality 293.1 Calcium 7.3 L Magnesium 2.5 H - Diagnostic Findings Procedure: Chest x-ray: report reviewed by me - EKG EKG results: interpreted by me EKG shows: sinus rhythm Quality Measures - VTE Contraindication to Pharmacological VTE Prophylaxis: High Risk of Bleeding
[2016-12-06 11:38] VITALS: BP 131/61
[2016-12-06] MEDS: CINACALCET 30 MG TABLET PO SCH (12:32)
--- NOTE | 2016-12-06 13:08 | Nephrology Progress Note ---
Nephrology - PN: Subj Interval history: No shortness of breath or chest pain Exam (PN)-Nephrology - Vital Signs Vital signs: Period Temp Pulse Resp BP Sys/Parish Pulse Ox Last 24 Hr 98 F-99.3 F 62-78 16-20 113-163/54-83 95-99 Exam: ENT: Normal Cardiovascular: Regular rate and rhythm. No murmur rub or gallop Lungs: Clear Extremities: No edema - Lab 12/06/16 03:19 12/06/16 03:19 Most recent lab results Calcium 7.3 MG/DL (8.5-10.1) L 12/06/16 03:19 Magnesium 2.5 MG/DL (1.8-2.4) H 12/06/16 03:19 Assessment and Plan (1) End stage renal disease on dialysis Status: Chronic Assessment and plan: 66-year-old woman admitted with: * ESRD. Dialysis tomorrow * CHF. Compensated * CAD. No severe stenosis. AMADO inhibitor will be added per cardiology recommendations * Hypertension. Controlled * Diabetes mellitus * Sleep apnea Current Visit: Yes (2) Shortness of breath Status: Acute Current Visit: Yes (3) Diabetes Status: Chronic Current Visit: Yes Qualifiers: Diabetes mellitus type: type 2 Diabetes mellitus complication status: with kidney complications Diabetes mellitus complication detail: with chronic kidney disease Chronic kidney disease stage: on chronic dialysis (4) Hypertension Status: Chronic Current Visit: Yes Qualifiers: Hypertension type: essential hypertension Qualified Code(s): I10 - Essential (primary) hypertension (5) Obstructive sleep apnea Status: Chronic Current Visit: Yes Specialty Discharge - Follow Up or Referrals Follow up with: Ricardo Krause MD [Physician] - 01/03/17 9:30 am
--- NOTE | 2016-12-06 16:55 | Sleep Medicine Progress Note ---
Assessment and Plan (1) Obstructive sleep apnea Status: Chronic (2) Diabetes Status: Chronic Qualifiers: Diabetes mellitus type: type 2 Diabetes mellitus complication status: with kidney complications Diabetes mellitus complication detail: with chronic kidney disease Chronic kidney disease stage: on chronic dialysis (3) Hypertension Status: Chronic Qualifiers: Hypertension type: essential hypertension Qualified Code(s): I10 - Essential (primary) hypertension Sleep Medicine Subjective Interval history: This patient slept with CPAP last night. She was on AutoPap device and had good results with about 6 hours of usage. She had excellent control of obstructive sleep apnea with an AHI of 1.5. Her average CPAP pressure required was about 10 cm. She will be scheduled for follow-up in the sleep clinic. Exam (Progress Note) - Constitutional Vitals: Period Temp Pulse Resp BP Sys/Parish Pulse Ox Last 24 Hr 98 F-99.3 F 63-78 16-20 113-140/54-83 95-99 Results - Labs CBC & BMP: 12/06/16 03:19 12/06/16 03:19 Specialty Discharge - Follow Up or Referrals Follow up with: Sean Teran MD [Physician] - 2 Weeks (December 19, 2016 at 10:00) Ricardo Krause MD [Physician] - 01/03/17 9:30 am
== END 2016-12-06 16:01 | disposition home or self-care (01) | DRG 286 ==
LOC: N.ED 07:18 → N.EDINP 10:11 → N.TELEN 11:09
PROVIDERS: ADMIT Internal Medicine; ATTEND Internal Medicine
PROC: CLCCHCL (ICD-10-PCS; 2016-12-05 11:15)

== ENCOUNTER 2017-04-13 23:26 | Inpatient (IN) ==
[2017-04-14] MEDS ORDERED: ALBUTEROL/IPRATROPIUM 3 ML NEB RESP TX STA (00:18)
[2017-04-14] MEDS ORDERED: MORPHINE 2 MG/1 ML SYRINGE IV STA (00:18)
[2017-04-14] MEDS ORDERED: NITROGLYCERIN 2% OINT 1 INCH/GM PACK TOP STA (00:18)
[2017-04-14] MEDS ORDERED: FUROSEMIDE 100 MG/10 ML VIAL IV STA (00:18)
[2017-04-14] MEDS ORDERED: MORPHINE 2 MG/1 ML SYRINGE ONE (00:47)
[2017-04-14] MEDS ORDERED: FUROSEMIDE 40 MG/4 ML VIAL ONE (00:47)
[2017-04-14] MEDS ORDERED: NITROGLYCERIN 2% OINT 1 INCH/GM PACK TOP ONE (00:47)
[2017-04-14] MEDS ORDERED: FUROSEMIDE 20 MG/2 ML VIAL ONE (00:47)
[2017-04-14] MEDS ORDERED: ONDANSETRON 4 MG/2 ML VIAL ONE (00:50)
[2017-04-14 00:58] LABS: Basophils # 0.1 10*3/uL (0.0-0.2); Basophils % 0.4 % (0.0-0.8); Eosinophils # 0.1 10*3/uL (0.0-0.87); Eosinophils % 0.4 % (0.00-10.9); Hematocrit 32.4 VOL% (35.7-47.0); Hemoglobin 10.6 GM/DL (12.0-16.0); Immature Granulocytes % 0.4 %; Immature Granulocytes Absolute 0.06 #; Lymphocytes # 1.1 10*3/uL (1.4-4.0); Lymphocytes % 7.7 % (21.3-54.2); Mean Corpuscular HGB Conc 32.7 GM/DL (32-36); Mean Corpuscular Hemoglobin 30 PG (27-34); Mean Corpuscular Volume 91.8 FL (87-102); Mean Platelet Volume 10.2 FL (9.6-12.0); Monocytes # 0.7 10*3/uL (0.11-0.8); Monocytes % 5.1 % (1.7-12.7); Neutrophils # 12.3 10*3/uL (1.4-7.4); Platelet Count 184 T/CUMM (130-400); Red Blood Count 3.53 MC/CUMM (3.8-5.5); Red Cell Distribution Width 14.4 % (9.3-17.3); White Blood Count 14.3 T/CUMM (4-12)
[2017-04-14] MEDS ORDERED: ONDANSETRON 4 MG/2 ML VIAL IV STA (01:01)
[2017-04-14] MEDS ORDERED: POTASSIUM CHLORIDE 20 MEQ TABLET PO ONE (01:10)
[2017-04-14] MEDS ORDERED: KETOROLAC 30 MG/1 ML VIAL ONE (01:11)
[2017-04-14 01:58] LABS: Albumin 3.4 G/DL (3.4-5.0); Bilirubin,Total 0.5 MG/DL (0.2-1.0); Calcium 8.3 MG/DL (8.5-10.1); Magnesium 2.3 MG/DL (1.8-2.4); Osmolality,Calculated 291.4 MOS/KG (273-304); Potassium 3.8 MMOL/L (3.5-5.1); Total Protein 6.9 G/DL (6.4-8.3); Troponin I Only 0.018 NG/ML (0.00-0.045)
[2017-04-14] MEDS ORDERED: DEXTROSE 50% 25 GM/50 ML VIAL IV PRN (02:42)
[2017-04-14] MEDS ORDERED: GLUCAGON 1 MG VIAL IM PRN (02:42)
[2017-04-14] MEDS ORDERED: ONDANSETRON 4 MG/2 ML VIAL IV PRN (02:42)
[2017-04-14] MEDS ORDERED: ACETAMINOPHEN 325 MG TABLET PO PRN (02:42)
[2017-04-14] MEDS ORDERED: MORPHINE 2 MG/1 ML SYRINGE IV PRN (02:42)
[2017-04-14] MEDS ORDERED: hydrALAZINE 20 MG/1 ML VIAL IV PRN (02:42)
[2017-04-14] MEDS ORDERED: ALBUTEROL/IPRATROPIUM 3 ML NEB RESP TX PRN (02:42)
[2017-04-14 06:21] LABS: Basophils % 0.3 % (0.0-0.8); Eosinophils % 0.3 % (0.00-10.9); Hematocrit 30.9 VOL% (35.7-47.0); Hemoglobin 10.1 GM/DL (12.0-16.0); Immature Granulocytes % 0.4 %; Mean Corpuscular HGB Conc 32.7 GM/DL (32-36); Mean Corpuscular Hemoglobin 31 PG (27-34); Mean Corpuscular Volume 93.4 FL (87-102); Mean Platelet Volume 10.4 FL (9.6-12.0); Monocytes % 6.2 % (1.7-12.7); Neutrophils % 82.8 % (38.7-73.9); Platelet Count 190 T/CUMM (130-400); Red Blood Count 3.31 MC/CUMM (3.8-5.5); Red Cell Distribution Width 14.5 % (9.3-17.3); White Blood Count 12.5 T/CUMM (4-12)
[2017-04-14 06:22] LABS: Immature Granulocytes Absolute 0.05 #; Lymphocytes # 1.3 10*3/uL (1.4-4.0); Monocytes # 0.8 10*3/uL (0.11-0.8); Neutrophils # 10.4 10*3/uL (1.4-7.4)
[2017-04-14 06:49] LABS: Albumin 3.3 G/DL (3.4-5.0); Bilirubin,Total 0.7 MG/DL (0.2-1.0); Calcium 8.5 MG/DL (8.5-10.1); Magnesium 2.4 MG/DL (1.8-2.4); Osmolality,Calculated 292.4 MOS/KG (273-304); Potassium 4.2 MMOL/L (3.5-5.1); Total Protein 6.8 G/DL (6.4-8.3)
[2017-04-14] MEDS: SODIUM CHLORIDE 0.9% 1,000 ML IV SCH (07:49)
[2017-04-14] MEDS: DOCUSATE SODIUM 100 MG CAPSULE PO SCH ×2 (08:35→20:34)
[2017-04-14] MEDS: PANTOPRAZOLE 40 MG TABLET PO SCH (08:35)
[2017-04-14] MEDS: INSULIN REGULAR 100 UNIT/ML SUBCUT SCH ×4 (08:42→20:39)
[2017-04-14] MEDS ORDERED: traMADol 50 MG TABLET PO PRN (16:01)
[2017-04-14] MEDS: amLODIPine 10 MG TABLET PO SCH (17:07)
[2017-04-14] MEDS: SEVELAMER CARBONATE 800 MG TABLET PO SCH (17:43)
[2017-04-14] MEDS: GABAPENTIN 100 MG CAPSULE PO SCH (20:33)
[2017-04-14] MEDS: CARVEDILOL 25 MG TABLET PO SCH (20:34)
[2017-04-14] MEDS: hydrALAZINE 25 MG TABLET PO SCH (20:34)
[2017-04-14] MEDS: FUROSEMIDE 80 MG TABLET PO SCH (20:34)
[2017-04-14] MEDS: INSULIN ASPART PROTAMINE/ASPART 70/30 100 UNIT/ML SUBCUT SCH (20:36)
[2017-04-14] MEDS: TRAVOPROST 0.004% OPH SOLN 2.5 ML BOTTLE BOTH EYES SCH (20:51)
[2017-04-15 05:34] LABS: Basophils % 0.4 % (0.0-0.8); Eosinophils # 0.3 10*3/uL (0.0-0.87); Eosinophils % 2.4 % (0.00-10.9); Hematocrit 31.1 VOL% (35.7-47.0); Immature Granulocytes % 0.6 %; Immature Granulocytes Absolute 0.06 #; Lymphocytes # 2.1 10*3/uL (1.4-4.0); Lymphocytes % 19.6 % (21.3-54.2); Mean Corpuscular HGB Conc 32.2 GM/DL (32-36); Mean Corpuscular Hemoglobin 30 PG (27-34); Mean Corpuscular Volume 94.2 FL (87-102); Mean Platelet Volume 10.4 FL (9.6-12.0); Monocytes % 8.9 % (1.7-12.7); Neutrophils # 7.4 10*3/uL (1.4-7.4); Neutrophils % 68.1 % (38.7-73.9); Platelet Count 193 T/CUMM (130-400); Red Cell Distribution Width 14.5 % (9.3-17.3); White Blood Count 10.9 T/CUMM (4-12)
[2017-04-15 06:06] LABS: Albumin 3.1 G/DL (3.4-5.0); Bilirubin,Total 0.7 MG/DL (0.2-1.0); Calcium 8.5 MG/DL (8.5-10.1); Osmolality,Calculated 292.7 MOS/KG (273-304); Potassium 4.6 MMOL/L (3.5-5.1); Risk Ratio 4.11; Total Protein 6.5 G/DL (6.4-8.3); VLDL CHOLESTEROL 24.4 MG/DL
[2017-04-15] MEDS: INSULIN REGULAR 100 UNIT/ML SUBCUT SCH ×4 (08:26→21:59)
[2017-04-15] MEDS: SEVELAMER CARBONATE 800 MG TABLET PO SCH ×3 (08:56→16:36)
[2017-04-15] MEDS: ASPIRIN EC 81 MG TABLET PO SCH (08:56)
[2017-04-15] MEDS: PANTOPRAZOLE 40 MG TABLET PO SCH (08:56)
[2017-04-15] MEDS: ALLOPURINOL 300 MG TABLET PO SCH (08:56)
[2017-04-15] MEDS: DOCUSATE SODIUM 100 MG CAPSULE PO SCH ×2 (08:56→22:01)
[2017-04-15] MEDS: CARVEDILOL 25 MG TABLET PO SCH ×2 (08:56→21:58)
[2017-04-15] MEDS: GABAPENTIN 100 MG CAPSULE PO SCH ×3 (08:56→21:58)
[2017-04-15] MEDS: FUROSEMIDE 80 MG TABLET PO SCH ×2 (08:56→21:58)
[2017-04-15] MEDS: CINACALCET 30 MG TABLET PO SCH (08:56)
[2017-04-15] MEDS: amLODIPine 10 MG TABLET PO SCH (08:56)
[2017-04-15] MEDS: INSULIN ASPART PROTAMINE/ASPART 70/30 100 UNIT/ML SUBCUT SCH ×3 (08:56→21:57)
[2017-04-15] MEDS: hydrALAZINE 25 MG TABLET PO SCH ×2 (08:56→21:58)
[2017-04-15] MEDS: FLUTICASONE 50 MCG NASAL SPRAY 16 GM BOTTLE BOTH NARES SCH (08:59)
[2017-04-15] MEDS: CETIRIZINE 10 MG TABLET PO SCH (21:58)
[2017-04-15] MEDS: TRAVOPROST 0.004% OPH SOLN 2.5 ML BOTTLE BOTH EYES SCH (21:59)
[2017-04-16] MEDS: SODIUM CHLORIDE 0.9% 1,000 ML IV SCH (05:16)
[2017-04-16] MEDS: INSULIN REGULAR 100 UNIT/ML SUBCUT SCH ×4 (09:05→21:32)
[2017-04-16] MEDS: INSULIN ASPART PROTAMINE/ASPART 70/30 100 UNIT/ML SUBCUT SCH ×3 (09:05→21:32)
[2017-04-16] MEDS: CINACALCET 30 MG TABLET PO SCH (09:06)
[2017-04-16] MEDS: ASPIRIN EC 81 MG TABLET PO SCH (09:06)
[2017-04-16] MEDS: DOCUSATE SODIUM 100 MG CAPSULE PO SCH ×2 (09:06→21:29)
[2017-04-16] MEDS: hydrALAZINE 25 MG TABLET PO SCH ×2 (09:06→21:29)
[2017-04-16] MEDS: SEVELAMER CARBONATE 800 MG TABLET PO SCH ×4 (09:06→17:01)
[2017-04-16] MEDS: FUROSEMIDE 80 MG TABLET PO SCH ×2 (09:06→21:29)
[2017-04-16] MEDS: GABAPENTIN 100 MG CAPSULE PO SCH ×3 (09:06→21:29)
[2017-04-16] MEDS: amLODIPine 10 MG TABLET PO SCH (09:06)
[2017-04-16] MEDS: CARVEDILOL 25 MG TABLET PO SCH ×2 (09:06→21:29)
[2017-04-16] MEDS: ALLOPURINOL 300 MG TABLET PO SCH (09:06)
[2017-04-16] MEDS: PANTOPRAZOLE 40 MG TABLET PO SCH (09:06)
[2017-04-16] MEDS: FLUTICASONE 50 MCG NASAL SPRAY 16 GM BOTTLE BOTH NARES SCH (09:07)
[2017-04-16 13:30] LABS: Apearance,Urine CLOUDY (Clear); Bacteria,Urine Many /HPF (Few); Bilirubin,Urine Negative (Negative); Blood, Urine Small mg/dL (Negative); Glucose,Urine (UA) Negative (Negative); Ketones,Urine Negative (Negative); Nitrite,Urine Negative (Negative); Protein,Urine 100 MG/DL; RBC,Urine 2 /HPF (0-4); Squamous Epithelial Cell,Urine Few /HPF (0-10); Urine Color Amber (Yellow); Urine Specific Gravity 1.015 (1.001-1.035); Urine Urobilinogen < 2.0 EU/DL (0.2-1.0); WBC,Urine 8 /HPF (0-6)
[2017-04-16] MEDS: CETIRIZINE 10 MG TABLET PO SCH (21:29)
[2017-04-16] MEDS: TRAVOPROST 0.004% OPH SOLN 2.5 ML BOTTLE BOTH EYES SCH (21:29)
[2017-04-17] MEDS: INSULIN REGULAR 100 UNIT/ML SUBCUT SCH ×2 (08:15→12:27)
[2017-04-17] MEDS: DOCUSATE SODIUM 100 MG CAPSULE PO SCH (08:16)
[2017-04-17] MEDS: hydrALAZINE 25 MG TABLET PO SCH (08:16)
[2017-04-17] MEDS: SEVELAMER CARBONATE 800 MG TABLET PO SCH ×2 (08:16→11:39)
[2017-04-17] MEDS: ASPIRIN EC 81 MG TABLET PO SCH (08:16)
[2017-04-17] MEDS: FUROSEMIDE 80 MG TABLET PO SCH (08:16)
[2017-04-17] MEDS: CARVEDILOL 25 MG TABLET PO SCH (08:16)
[2017-04-17] MEDS: FLUTICASONE 50 MCG NASAL SPRAY 16 GM BOTTLE BOTH NARES SCH (08:16)
[2017-04-17] MEDS: amLODIPine 10 MG TABLET PO SCH (08:17)
[2017-04-17] MEDS: GABAPENTIN 100 MG CAPSULE PO SCH ×2 (08:17→14:38)
[2017-04-17] MEDS: ALLOPURINOL 300 MG TABLET PO SCH (08:17)
[2017-04-17] MEDS: CINACALCET 30 MG TABLET PO SCH (08:17)
[2017-04-17] MEDS: PANTOPRAZOLE 40 MG TABLET PO SCH (08:17)
[2017-04-17] MEDS: INSULIN ASPART PROTAMINE/ASPART 70/30 100 UNIT/ML SUBCUT SCH ×2 (08:17→14:38)
[2017-04-17 14:33] VITALS: BP 135/67
== END 2017-04-17 14:45 | disposition home or self-care (01) | DRG 291 ==
LOC: N.ED 23:26 → N.EDINP 04-14 01:59 → N.5E 04-14 02:28
PROVIDERS: ADMIT Internal Medicine; ATTEND Internal Medicine

== ENCOUNTER 2020-06-19 22:18 | Inpatient (IN) ==
[2020-06-19] MEDS ORDERED: ONDANSETRON 4 MG/2 ML VIAL IV STA (22:47)
[2020-06-19] MEDS ORDERED: MORPHINE 4 MG/1 ML VIAL IV STA (22:47)
[2020-06-19] MEDS ORDERED: ASPIRIN 325 MG TABLET PO STA (22:47)
[2020-06-19] MEDS ORDERED: NITROGLYCERIN 2% OINT 1 INCH/GM PACK TOP STA (22:47)
[2020-06-19 23:55] LABS: Basophils # 0.1 10*3/uL (0.0-0.2); Basophils % 0.5 % (0.0-0.8); Eosinophils # 0.3 10*3/uL (0.0-0.87); Hematocrit 36.6 VOL% (35.7-47.0); Hemoglobin 11.9 GM/DL (12.0-16.0); Immature Granulocytes % 0.5 %; Immature Granulocytes Absolute 0.08 #; Lymphocytes # 1.9 10*3/uL (1.4-4.0); Lymphocytes % 12.8 % (21.3-54.2); Mean Corpuscular HGB Conc 32.5 GM/DL (32-36); Mean Corpuscular Volume 90.6 FL (87-102); Mean Platelet Volume 9.5 FL (9.6-12.0); Monocytes % 4.7 % (1.7-12.7); Neutrophils % 79.5 % (38.7-73.9); Platelet Count 228 T/CUMM (130-400); Red Blood Count 4.04 MC/CUMM (3.8-5.5); Red Cell Distribution Width 15.7 % (9.3-17.3); White Blood Count 15.2 T/CUMM (4-12)
[2020-06-20 00:09] LABS: PT Patient Result 10.8 SECS (9.8-11.9)
[2020-06-20 00:47] LABS: Albumin 3.4 G/DL (3.4-5.0); Bilirubin,Total 0.9 MG/DL (0.2-1.0); Osmolality,Calculated 287.1 MOS/KG (273-304); Potassium 5.1 MMOL/L (3.5-5.1); Total Protein 8.7 G/DL (6.4-8.3)
[2020-06-20] MEDS ORDERED: MORPHINE 4 MG/1 ML VIAL IV PRN (01:20)
[2020-06-20] MEDS ORDERED: DEXTROSE 50% 25 GM/50 ML VIAL IV PRN (01:20)
[2020-06-20] MEDS ORDERED: GLUCAGON 1 MG VIAL IM PRN (01:20)
[2020-06-20] MEDS: SODIUM CHLORIDE 0.9% 1,000 ML IV SCH (02:30)
[2020-06-20 02:57] LABS: Troponin I < 0.015 NG/ML (0.00-0.045)
[2020-06-20 03:01] LABS: Albumin 3.2 G/DL (3.4-5.0); Bilirubin,Total 0.8 MG/DL (0.2-1.0); Calcium 8.9 MG/DL (8.5-10.1); Osmolality,Calculated 286.1 MOS/KG (273-304); Potassium 5.8 MMOL/L (3.5-5.1)
[2020-06-20 04:29] LABS: Basophils # 0.1 10*3/uL (0.0-0.2); Basophils % 0.5 % (0.0-0.8); Eosinophils # 0.3 10*3/uL (0.0-0.87); Eosinophils % 2.2 % (0.00-10.9); Hematocrit 34.7 VOL% (35.7-47.0); Hemoglobin 11.2 GM/DL (12.0-16.0); Immature Granulocytes % 0.7 %; Immature Granulocytes Absolute 0.09 #; Lymphocytes # 2.2 10*3/uL (1.4-4.0); Lymphocytes % 15.7 % (21.3-54.2); Mean Corpuscular HGB Conc 32.3 GM/DL (32-36); Mean Corpuscular Volume 90.8 FL (87-102); Mean Platelet Volume 9.9 FL (9.6-12.0); Monocytes % 5.9 % (1.7-12.7); Platelet Count 242 T/CUMM (130-400); Red Blood Count 3.82 MC/CUMM (3.8-5.5); Red Cell Distribution Width 15.8 % (9.3-17.3); White Blood Count 13.8 T/CUMM (4-12)
[2020-06-20 04:51] LABS: Troponin I < 0.015 NG/ML (0.00-0.045)
[2020-06-20] MEDS: INSULIN REGULAR 100 UNIT/ML SUBCUT SCH ×3 (06:12→18:40)
[2020-06-20] MEDS: ONDANSETRON 4 MG/2 ML VIAL IV PRN (06:27)
[2020-06-20] MEDS ORDERED: INSULIN ASPART PROTAMINE/ASPART 70/30 100 UNIT/ML SUBCUT PRN (09:07)
[2020-06-20] MEDS: PANTOPRAZOLE 40 MG TABLET PO SCH (09:40)
[2020-06-20] MEDS: DOCUSATE SODIUM 100 MG CAPSULE PO SCH ×2 (09:40→21:20)
[2020-06-20] MEDS: NITROGLYCERIN 2% OINT 1 INCH/GM PACK TOP SCH ×2 (09:40→21:20)
[2020-06-20] MEDS: ASPIRIN EC 81 MG TABLET PO SCH (09:40)
[2020-06-20] MEDS: SEVELAMER CARBONATE 800 MG TABLET PO SCH (18:41)
[2020-06-20] MEDS: carvediloL 25 MG TABLET PO SCH (21:20)
[2020-06-20] MEDS: TRAVOPROST 0.004% OPH SOLN 2.5 ML BOTTLE BOTH EYES SCH (21:20)
[2020-06-21] MEDS: INSULIN REGULAR 100 UNIT/ML SUBCUT SCH ×3 (00:15→12:30)
[2020-06-21 05:44] LABS: Basophils # 0.1 10*3/uL (0.0-0.2); Basophils % 0.7 % (0.0-0.8); Eosinophils # 0.4 10*3/uL (0.0-0.87); Eosinophils % 4.4 % (0.00-10.9); Hematocrit 31.4 VOL% (35.7-47.0); Hemoglobin 9.9 GM/DL (12.0-16.0); Immature Granulocytes % 0.5 %; Immature Granulocytes Absolute 0.05 #; Lymphocytes # 1.6 10*3/uL (1.4-4.0); Lymphocytes % 16.1 % (21.3-54.2); Mean Corpuscular HGB Conc 31.5 GM/DL (32-36); Mean Corpuscular Volume 92.4 FL (87-102); Mean Platelet Volume 10.2 FL (9.6-12.0); Monocytes % 7.2 % (1.7-12.7); Neutrophils % 71.1 % (38.7-73.9); Platelet Count 185 T/CUMM (130-400); Red Cell Distribution Width 15.6 % (9.3-17.3)
[2020-06-21 06:11] LABS: Calcium 8.4 MG/DL (8.5-10.1); Osmolality,Calculated 279.1 MOS/KG (273-304); Potassium 5.1 MMOL/L (3.5-5.1)
[2020-06-21 06:14] LABS: Risk Ratio 4.94
[2020-06-21] MEDS ORDERED: NON-FORMULARY MEDICATION (Omeprazole 20 MG capsule,delayed release(DR/EC)) PO SCH (09:00)
[2020-06-21] MEDS ORDERED: ASPIRIN EC 81 MG TABLET PO SCH (09:00)
[2020-06-21] MEDS: DOCUSATE SODIUM 100 MG CAPSULE PO SCH ×2 (09:37→20:40)
[2020-06-21] MEDS: carvediloL 25 MG TABLET PO SCH ×2 (09:37→20:40)
[2020-06-21] MEDS: CINACALCET 30 MG TABLET PO SCH (09:37)
[2020-06-21] MEDS: hydrALAZINE 25 MG TABLET PO SCH (09:37)
[2020-06-21] MEDS: GABAPENTIN 100 MG CAPSULE PO SCH (09:37)
[2020-06-21] MEDS: amLODIPine 10 MG TABLET PO SCH (09:37)
[2020-06-21] MEDS: ASPIRIN EC 81 MG TABLET PO SCH (09:37)
[2020-06-21] MEDS: PANTOPRAZOLE 40 MG TABLET PO SCH (09:37)
[2020-06-21] MEDS: NITROGLYCERIN 2% OINT 1 INCH/GM PACK TOP SCH ×2 (09:37→20:40)
[2020-06-21] MEDS: SEVELAMER CARBONATE 800 MG TABLET PO SCH ×3 (09:37→17:42)
[2020-06-21] MEDS: SODIUM CHLORIDE 0.9% 1,000 ML IV SCH (09:51)
[2020-06-21] MEDS: FLUTICASONE 50 MCG NASAL SPRAY 16 GM BOTTLE BOTH NARES SCH (09:52)
[2020-06-21] MEDS: traMADol 50 MG TABLET PO PRN (11:15)
[2020-06-21] MEDS: LEVOFLOXACIN 500 MG TABLET PO SCH (11:15)
[2020-06-21] MEDS: ONDANSETRON 4 MG/2 ML VIAL IV PRN (14:39)
[2020-06-21] MEDS: ACETAMINOPHEN 325 MG TABLET PO PRN (14:42)
[2020-06-21] MEDS: ROSUVASTATIN 20 MG TABLET PO SCH (20:40)
[2020-06-21] MEDS: TRAVOPROST 0.004% OPH SOLN 2.5 ML BOTTLE BOTH EYES SCH (20:41)
[2020-06-22] MEDS: ACETAMINOPHEN 325 MG TABLET PO PRN (00:47)
[2020-06-22 05:50] LABS: Basophils # 0.1 10*3/uL (0.0-0.2); Basophils % 0.5 % (0.0-0.8); Eosinophils # 0.3 10*3/uL (0.0-0.87); Eosinophils % 2.1 % (0.00-10.9); Hematocrit 32.2 VOL% (35.7-47.0); Hemoglobin 9.7 GM/DL (12.0-16.0); Immature Granulocytes % 0.4 %; Immature Granulocytes Absolute 0.05 #; Lymphocytes # 1.6 10*3/uL (1.4-4.0); Mean Corpuscular HGB Conc 30.1 GM/DL (32-36); Mean Platelet Volume 10.4 FL (9.6-12.0); Monocytes % 6.7 % (1.7-12.7); Neutrophils % 77.3 % (38.7-73.9); Platelet Count 199 T/CUMM (130-400); Red Blood Count 3.39 MC/CUMM (3.8-5.5); Red Cell Distribution Width 14.8 % (9.3-17.3); White Blood Count 12.6 T/CUMM (4-12)
[2020-06-22 06:10] LABS: Calcium 7.9 MG/DL (8.5-10.1); Osmolality,Calculated 283.1 MOS/KG (273-304); Potassium 5.4 MMOL/L (3.5-5.1)
[2020-06-22] MEDS: SODIUM CHLORIDE 0.9% 1,000 ML IV SCH (08:40)
[2020-06-22] MEDS: PANTOPRAZOLE 40 MG TABLET PO SCH (08:41)
[2020-06-22] MEDS: carvediloL 25 MG TABLET PO SCH ×2 (08:41→21:50)
[2020-06-22] MEDS: CINACALCET 30 MG TABLET PO SCH (08:41)
[2020-06-22] MEDS: ASPIRIN EC 81 MG TABLET PO SCH (08:42)
[2020-06-22] MEDS: NITROGLYCERIN 2% OINT 1 INCH/GM PACK TOP SCH ×2 (08:42→21:53)
[2020-06-22] MEDS: GABAPENTIN 100 MG CAPSULE PO SCH (08:42)
[2020-06-22] MEDS: amLODIPine 10 MG TABLET PO SCH (08:42)
[2020-06-22] MEDS: DOCUSATE SODIUM 100 MG CAPSULE PO SCH ×2 (08:42→21:50)
[2020-06-22] MEDS: SEVELAMER CARBONATE 800 MG TABLET PO SCH ×3 (08:42→16:27)
[2020-06-22] MEDS: hydrALAZINE 25 MG TABLET PO SCH (08:42)
[2020-06-22] MEDS: FLUTICASONE 50 MCG NASAL SPRAY 16 GM BOTTLE BOTH NARES SCH (14:45)
[2020-06-22] MEDS: ROSUVASTATIN 20 MG TABLET PO SCH (21:51)
[2020-06-22] MEDS: traMADol 50 MG TABLET PO PRN (21:51)
[2020-06-22] MEDS: TRAVOPROST 0.004% OPH SOLN 2.5 ML BOTTLE BOTH EYES SCH (21:55)
[2020-06-23 04:56] LABS: Basophils # 0.1 10*3/uL (0.0-0.2); Basophils % 0.5 % (0.0-0.8); Eosinophils # 0.3 10*3/uL (0.0-0.87); Eosinophils % 2.5 % (0.00-10.9); Hematocrit 32.3 VOL% (35.7-47.0); Hemoglobin 9.8 GM/DL (12.0-16.0); Immature Granulocytes % 0.5 %; Immature Granulocytes Absolute 0.05 #; Lymphocytes # 1.4 10*3/uL (1.4-4.0); Lymphocytes % 14.1 % (21.3-54.2); Mean Corpuscular HGB Conc 30.3 GM/DL (32-36); Mean Corpuscular Volume 95.6 FL (87-102); Mean Platelet Volume 10.1 FL (9.6-12.0); Monocytes % 7.9 % (1.7-12.7); Neutrophils % 74.5 % (38.7-73.9); Platelet Count 204 T/CUMM (130-400); Red Blood Count 3.38 MC/CUMM (3.8-5.5); White Blood Count 9.9 T/CUMM (4-12)
[2020-06-23 05:34] LABS: Calcium 8.2 MG/DL (8.5-10.1); Potassium 5.1 MMOL/L (3.5-5.1)
[2020-06-23] MEDS: SEVELAMER CARBONATE 800 MG TABLET PO SCH ×4 (08:00→17:08)
[2020-06-23] MEDS ORDERED: REGADENOSON 0.4 MG/5 ML SYRINGE IV ONE (11:59)
[2020-06-23] MEDS: SODIUM CHLORIDE 0.9% 1,000 ML IV SCH (12:10)
[2020-06-23] MEDS: DOCUSATE SODIUM 100 MG CAPSULE PO SCH ×2 (13:47→21:21)
[2020-06-23] MEDS: GABAPENTIN 100 MG CAPSULE PO SCH (13:47)
[2020-06-23] MEDS: CINACALCET 30 MG TABLET PO SCH (13:48)
[2020-06-23] MEDS: PANTOPRAZOLE 40 MG TABLET PO SCH (13:48)
[2020-06-23] MEDS: carvediloL 25 MG TABLET PO SCH ×2 (13:49→21:21)
[2020-06-23] MEDS: ASPIRIN EC 81 MG TABLET PO SCH (13:49)
[2020-06-23] MEDS: LEVOFLOXACIN 500 MG TABLET PO SCH (13:49)
[2020-06-23] MEDS: amLODIPine 10 MG TABLET PO SCH (13:49)
[2020-06-23] MEDS: hydrALAZINE 25 MG TABLET PO SCH (13:49)
[2020-06-23] MEDS: FLUTICASONE 50 MCG NASAL SPRAY 16 GM BOTTLE BOTH NARES SCH (13:49)
[2020-06-23] MEDS: NITROGLYCERIN 2% OINT 1 INCH/GM PACK TOP SCH ×2 (13:55→21:22)
[2020-06-23] MEDS ORDERED: MAGNESIUM SULF RIDER 2 GM in PREMIX 1 EACH IV PRN (18:34)
[2020-06-23] MEDS ORDERED: DIAZEPAM 5 MG TABLET PO ONE (18:34)
[2020-06-23] MEDS ORDERED: POTASSIUM CHLORIDE RIDER 10 MEQ in PREMIX 1 EACH IV PRN (18:34)
[2020-06-23] MEDS ORDERED: diphenhydrAMINE CAP 25 MG CAPSULE PO ONE (18:34)
[2020-06-23] MEDS: predniSONE 20 MG TABLET PO SCH (21:21)
[2020-06-23] MEDS: FAMOTIDINE 20 MG TABLET PO SCH (21:21)
[2020-06-23] MEDS: TRAVOPROST 0.004% OPH SOLN 2.5 ML BOTTLE BOTH EYES SCH (21:22)
[2020-06-23] MEDS: ROSUVASTATIN 20 MG TABLET PO SCH (21:22)
[2020-06-23] MEDS: traMADol 50 MG TABLET PO PRN (21:26)
[2020-06-23] MEDS: ONDANSETRON 4 MG/2 ML VIAL IV PRN (22:01)
[2020-06-24] MEDS: diphenhydrAMINE CAP 25 MG CAPSULE PO SCH ×4 (00:10→18:33)
[2020-06-24] MEDS: predniSONE 20 MG TABLET PO SCH ×4 (02:03→21:33)
[2020-06-24] MEDS: SODIUM CHLORIDE 0.9% 1,000 ML IV SCH (03:15)
[2020-06-24 04:47] LABS: Basophils % 0.3 % (0.0-0.8); Hematocrit 32.8 VOL% (35.7-47.0); Hemoglobin 10.3 GM/DL (12.0-16.0); Immature Granulocytes % 0.4 %; Immature Granulocytes Absolute 0.04 #; Lymphocytes # 0.7 10*3/uL (1.4-4.0); Lymphocytes % 6.8 % (21.3-54.2); Mean Corpuscular HGB Conc 31.4 GM/DL (32-36); Mean Corpuscular Volume 91.9 FL (87-102); Mean Platelet Volume 10.2 FL (9.6-12.0); Monocytes % 0.9 % (1.7-12.7); Neutrophils % 91.6 % (38.7-73.9); Platelet Count 256 T/CUMM (130-400); Red Blood Count 3.57 MC/CUMM (3.8-5.5); Red Cell Distribution Width 14.8 % (9.3-17.3); White Blood Count 10.3 T/CUMM (4-12)
[2020-06-24 05:17] LABS: Eosinophils 2 % (0-10); Lymphocytes 5 % (20-55); Platelet Estimate Normal; Segmented Neutrophils 93 % (50-85); Total Cells Counted 100
[2020-06-24] MEDS ORDERED: DIAZEPAM 5 MG TABLET ONE (13:30)
[2020-06-24] MEDS: carvediloL 25 MG TABLET PO SCH ×2 (13:45→21:33)
[2020-06-24] MEDS: ASPIRIN EC 81 MG TABLET PO SCH (13:45)
[2020-06-24] MEDS ORDERED: MIDAZOLAM 2 MG/2 ML VIAL ONE ×2 (14:01→14:24)
[2020-06-24] MEDS ORDERED: HEPARIN/NACL 0.9% 2 UNITS/ML 1,000 ML IV ONE (14:01)
[2020-06-24] MEDS ORDERED: LIDOCAINE 1% 20 ML VIAL ONE (14:01)
[2020-06-24] MEDS ORDERED: fentaNYL 100 MCG/2 ML VIAL ONE (14:02)
[2020-06-24] MEDS ORDERED: ceFAZolin 1,000 MG VIAL ONE (14:35)
[2020-06-24] MEDS: SEVELAMER CARBONATE 800 MG TABLET PO SCH ×3 (16:41→18:33)
[2020-06-24] MEDS: GABAPENTIN 100 MG CAPSULE PO SCH (16:43)
[2020-06-24] MEDS: hydrALAZINE 25 MG TABLET PO SCH (16:43)
[2020-06-24] MEDS: DOCUSATE SODIUM 100 MG CAPSULE PO SCH ×2 (16:43→21:33)
[2020-06-24] MEDS: FAMOTIDINE 20 MG TABLET PO SCH ×2 (16:44→21:34)
[2020-06-24] MEDS: CINACALCET 30 MG TABLET PO SCH (16:45)
[2020-06-24] MEDS: NITROGLYCERIN 2% OINT 1 INCH/GM PACK TOP SCH ×2 (16:46→21:34)
[2020-06-24] MEDS: amLODIPine 10 MG TABLET PO SCH (16:46)
[2020-06-24] MEDS: PANTOPRAZOLE 40 MG TABLET PO SCH (16:47)
[2020-06-24] MEDS: FLUTICASONE 50 MCG NASAL SPRAY 16 GM BOTTLE BOTH NARES SCH (16:48)
[2020-06-24] MEDS: ROSUVASTATIN 20 MG TABLET PO SCH (21:34)
[2020-06-24] MEDS: TRAVOPROST 0.004% OPH SOLN 2.5 ML BOTTLE BOTH EYES SCH (21:34)
[2020-06-25 05:21] LABS: Basophils % 0.1 % (0.0-0.8); Hematocrit 32.9 VOL% (35.7-47.0); Hemoglobin 10.3 GM/DL (12.0-16.0); Immature Granulocytes % 0.7 %; Immature Granulocytes Absolute 0.06 #; Lymphocytes # 0.5 10*3/uL (1.4-4.0); Lymphocytes % 5.7 % (21.3-54.2); Mean Corpuscular HGB Conc 31.3 GM/DL (32-36); Mean Corpuscular Volume 90.6 FL (87-102); Mean Platelet Volume 10.6 FL (9.6-12.0); Monocytes % 2.9 % (1.7-12.7); Neutrophils % 90.6 % (38.7-73.9); Platelet Count 300 T/CUMM (130-400); Red Blood Count 3.63 MC/CUMM (3.8-5.5); Red Cell Distribution Width 14.7 % (9.3-17.3)
[2020-06-25 05:39] LABS: Calcium 8.5 MG/DL (8.5-10.1); Osmolality,Calculated 279.8 MOS/KG (273-304); Potassium 5.7 MMOL/L (3.5-5.1)
[2020-06-25 06:11] LABS: Lymphocytes 6 % (20-55); Segmented Neutrophils 93 % (50-85); Total Cells Counted 100
[2020-06-25 06:12] LABS: Hypochromasia 1+; Microcytosis 1+; Platelet Estimate Normal
[2020-06-25] MEDS: SODIUM CHLORIDE 0.9% 1,000 ML IV SCH (06:41)
[2020-06-25] MEDS: SEVELAMER CARBONATE 800 MG TABLET PO SCH ×2 (10:05→11:59)
[2020-06-25] MEDS: hydrALAZINE 25 MG TABLET PO SCH ×2 (10:06→15:18)
[2020-06-25] MEDS: CINACALCET 30 MG TABLET PO SCH (10:06)
[2020-06-25] MEDS: ASPIRIN EC 81 MG TABLET PO SCH (10:10)
[2020-06-25] MEDS: GABAPENTIN 100 MG CAPSULE PO SCH (10:10)
[2020-06-25] MEDS: amLODIPine 10 MG TABLET PO SCH (10:10)
[2020-06-25] MEDS: carvediloL 25 MG TABLET PO SCH (10:11)
[2020-06-25] MEDS: DOCUSATE SODIUM 100 MG CAPSULE PO SCH (10:11)
[2020-06-25] MEDS: PANTOPRAZOLE 40 MG TABLET PO SCH (10:11)
[2020-06-25] MEDS: FLUTICASONE 50 MCG NASAL SPRAY 16 GM BOTTLE BOTH NARES SCH (10:12)
[2020-06-25] MEDS: LEVOFLOXACIN 500 MG TABLET PO SCH (10:15)
[2020-06-25 11:52] VITALS: BP 141/72
== END 2020-06-25 15:22 | disposition home or self-care (01) | DRG 286 ==
LOC: N.ED 22:18 → N.EDINP 22:18 → N.TELES 06-20 18:39
PROVIDERS: ADMIT Internal Medicine; ATTEND Internal Medicine
PROC: CLCCHCL (ICD-10-PCS; 2020-06-24 13:15)

== ENCOUNTER 2020-07-05 13:29 | Inpatient (IN) ==
[2020-07-05 15:17] LABS: Basophils # 0.1 10*3/uL (0.0-0.2); Basophils % 0.3 % (0.0-0.8); Eosinophils # 0.1 10*3/uL (0.0-0.87); Eosinophils % 0.4 % (0.00-10.9); Hematocrit 33.6 VOL% (35.7-47.0); Hemoglobin 10.2 GM/DL (12.0-16.0); Immature Granulocytes % 1.4 %; Immature Granulocytes Absolute 0.35 #; Lymphocytes # 1.1 10*3/uL (1.4-4.0); Lymphocytes % 4.3 % (21.3-54.2); Mean Corpuscular HGB Conc 30.4 GM/DL (32-36); Mean Corpuscular Volume 93.6 FL (87-102); Mean Platelet Volume 9.6 FL (9.6-12.0); Monocytes % 2.9 % (1.7-12.7); Neutrophils % 90.7 % (38.7-73.9); Platelet Count 396 T/CUMM (130-400); Red Blood Count 3.59 MC/CUMM (3.8-5.5); Red Cell Distribution Width 15.9 % (9.3-17.3); White Blood Count 24.8 T/CUMM (4-12)
[2020-07-05] MEDS ORDERED: PIPERACILLIN/TAZOBACTAM 3,375 MG in SODIUM CHLORIDE 0.9% 100 ML IV STA (15:23)
[2020-07-05 15:36] LABS: Alanine Aminotransferase < 9 U/L (13-56); Alkaline Phosphatase 105 U/L (45-117); Aspartate Amino Transferase 15 U/L (0-37); Blood Urea Nitrogen 64 MG/DL (7-18); Calcium 8.7 MG/DL (8.5-10.1); Carbon Dioxide 27 MMOL/L (21-32); Estimated Glom Filtration Rate 4 ML/MIN; Glucose 171 MG/DL (74-106); Osmolality,Calculated 289.2 MOS/KG (273-304); Sodium 134 MMOL/L (136-145); Total Protein 7.4 G/DL (6.4-8.3)
[2020-07-05 16:16] LABS: Hypochromasia 1+; Lymphocytes 5 % (20-55); Segmented Neutrophils 94 % (50-85); Total Cells Counted 100; Toxic Granulation 2+
[2020-07-05 16:17] LABS: Platelet Estimate Increased
[2020-07-05] MEDS: PANTOPRAZOLE 40 MG VIAL IV SCH (17:00)
[2020-07-05 20:01] LABS: Hepatitis B Core IgM Quant < 0.05 Index; Hepatitis B Surface Ag Quant < 0.10 Index; Hepatitis B Surface Ag Result Non-Reactive (NonReactive); Hepatitis C Virus Ab Quant 0.24 Index; Hepatitis C Virus Ab Result Non-Reactive (NonReactive)
[2020-07-05] MEDS: PIPERACILLIN/TAZOBACTAM 3,375 MG in SODIUM CHLORIDE 0.9% 100 ML IV SCH (22:22)
[2020-07-05] MEDS: ENOXAPARIN 30 MG/0.3 ML SYRINGE SUBCUT SCH (22:27)
[2020-07-05] MEDS: MORPHINE 4 MG/1 ML VIAL IV PRN (22:47)
[2020-07-06] MEDS: PIPERACILLIN/TAZOBACTAM 3,375 MG in SODIUM CHLORIDE 0.9% 100 ML IV SCH ×2 (04:29→21:36)
[2020-07-06] MEDS ORDERED: ACETAMINOPHEN 650 MG SUPP RECTAL ONE (05:00)
[2020-07-06 06:14] LABS: Basophils # 0.1 10*3/uL (0.0-0.2); Basophils % 0.3 % (0.0-0.8); Eosinophils % 0.2 % (0.00-10.9); Hematocrit 32.3 VOL% (35.7-47.0); Hemoglobin 9.9 GM/DL (12.0-16.0); Immature Granulocytes % 1.5 %; Immature Granulocytes Absolute 0.34 #; Lymphocytes # 1.1 10*3/uL (1.4-4.0); Mean Corpuscular HGB Conc 30.7 GM/DL (32-36); Mean Corpuscular Volume 92.8 FL (87-102); Mean Platelet Volume 9.8 FL (9.6-12.0); Monocytes % 4.2 % (1.7-12.7); Neutrophils % 88.8 % (38.7-73.9); Platelet Count 358 T/CUMM (130-400); Red Blood Count 3.48 MC/CUMM (3.8-5.5); Red Cell Distribution Width 15.9 % (9.3-17.3); White Blood Count 22.6 T/CUMM (4-12)
[2020-07-06] MEDS ORDERED: ROCURONIUM 50 MG/5 ML VIAL IV ONE (06:17)
[2020-07-06] MEDS ORDERED: MIDAZOLAM 2 MG/2 ML VIAL ONE (06:17)
[2020-07-06] MEDS ORDERED: LIDOCAINE 2% 5 ML VIAL ONE ×2 (06:17→10:30)
[2020-07-06] MEDS ORDERED: fentaNYL 100 MCG/2 ML VIAL ONE ×2 (06:17→10:57)
[2020-07-06] MEDS ORDERED: propofoL 200 MG/20 ML VIAL IV ONE (06:18)
[2020-07-06 06:33] LABS: Hypochromasia 1+; Lymphocytes 3 % (20-55); Microcytosis 1+; Platelet Estimate Adequate; Segmented Neutrophils 88 % (50-85); Total Cells Counted 100
[2020-07-06 06:50] LABS: Calcium 8.7 MG/DL (8.5-10.1); Potassium 4.9 MMOL/L (3.5-5.1)
[2020-07-06] MEDS ORDERED: SODIUM CHLORIDE 0.9% 250 ML IV SCH (07:30)
[2020-07-06] MEDS ORDERED: INDOCYANINE GREEN 25 MG VIAL IV ONE (08:21)
[2020-07-06] MEDS ORDERED: BUPIVACAINE MPF 0.25% 30 ML VIAL ONE (08:21)
[2020-07-06] MEDS ORDERED: LIDOCAINE 1%/EPI INJ 20 ML VIAL ONE (08:21)
[2020-07-06] MEDS ORDERED: ONDANSETRON 4 MG/2 ML VIAL ONE (09:51)
[2020-07-06] MEDS ORDERED: SEVOFLURANE 1 UNIT/15 MINUTE INH ONE (10:30)
[2020-07-06] MEDS ORDERED: PHENYLEPHRINE 1 MG/10 ML SYRINGE IV ONE (10:43)
[2020-07-06] MEDS: PANTOPRAZOLE 40 MG VIAL IV SCH (12:23)
[2020-07-06] MEDS ORDERED: HEPARIN/NACL 0.9% 2 UNITS/ML 500 ML IV ONE (12:23)
[2020-07-06 12:27] LABS: Hematocrit 32.7 VOL% (35.7-47.0); Hemoglobin 10.1 GM/DL (12.0-16.0)
[2020-07-06 12:55] LABS: Calcium 8.3 MG/DL (8.5-10.1)
[2020-07-06 12:59] LABS: Bilirubin,Urine Negative (Negative); Blood, Urine Moderate mg/dL (Negative); Glucose,Urine (UA) Negative (Negative); Ketones,Urine Negative (Negative); Nitrite,Urine Negative (Negative); Protein,Urine 2+ MG/DL; Urine Appearance Slightly Hazy (Clear); Urine Color Yellow (Yellow); Urine Specific Gravity 1.005 (1.001-1.035); Urine Urobilinogen < 2.0 EU/DL (0.2-1.0)
[2020-07-06 13:00] LABS: Amorphous Crystals,Urine Moderate /HPF (Few); RBC,Urine Trace /HPF (0-4); Squamous Epithelial Cell,Urine Rare /HPF (0-10); WBC,Urine Rare /HPF (0-6)
[2020-07-06 13:03] LABS: Potassium 6.1 MMOL/L (3.5-5.1)
[2020-07-06 14:05] LABS: Basophils # 0.1 10*3/uL (0.0-0.2); Basophils % 0.4 % (0.0-0.8); Eosinophils % 0.1 % (0.00-10.9); Hematocrit 33.6 VOL% (35.7-47.0); Immature Granulocytes % 2.2 %; Immature Granulocytes Absolute 0.43 #; Lymphocytes # 1.4 10*3/uL (1.4-4.0); Lymphocytes % 7.3 % (21.3-54.2); Mean Corpuscular HGB Conc 32.7 GM/DL (32-36); Mean Corpuscular Volume 92.1 FL (87-102); Mean Platelet Volume 9.8 FL (9.6-12.0); Monocytes % 4.4 % (1.7-12.7); NRBC # 0.05 10*3/uL; Neutrophils % 85.6 % (38.7-73.9); Platelet Count 365 T/CUMM (130-400); Red Blood Count 3.65 MC/CUMM (3.8-5.5); White Blood Count 19.4 T/CUMM (4-12)
[2020-07-06] MEDS ORDERED: SODIUM BICARBONATE 50 MEQ/50 ML VIAL IV ONE (14:59)
[2020-07-06 15:13] LABS: ABG Base Excess -2.9 MMOL/L (-2.5-2.5); ABG HCO3 21.9 MMOL/L (20-26); ABG Oxygen Saturation 95.8 % (95-100); ABG PCO2 37.8 MM HG (35-48); ABG PH 7.372 (7.35-7.45); ABG PO2 90.1 MM HG (80-95); Allen Test Positive; Pt O2 Delivery Device Ventilator
[2020-07-06] MEDS ORDERED: GENTAMICIN INJ 120 MG in PREMIX 1 EACH IV PRN (15:30)
[2020-07-06] MEDS: HYDROCORTISONE 100 MG VIAL IV SCH (15:31)
[2020-07-06 15:57] LABS: Band Neutrophils 9 % (0-10); Eosinophils 1 % (0-10); Lymphocytes 9 % (20-55); Platelet Estimate Normal; Segmented Neutrophils 77 % (50-85); Total Cells Counted 100
[2020-07-06] MEDS ORDERED: GENTAMICIN INJ 240 MG in SODIUM CHLORIDE 0.9% 100 ML IV ONE (16:00)
[2020-07-06] MEDS: ENOXAPARIN 30 MG/0.3 ML SYRINGE SUBCUT SCH (17:24)
[2020-07-06] MEDS: MORPHINE 4 MG/1 ML VIAL IV PRN ×2 (18:05→21:29)
[2020-07-07] MEDS: HYDROCORTISONE 100 MG VIAL IV SCH ×4 (00:10→22:31)
[2020-07-07] MEDS ORDERED: SODIUM CHLORIDE 0.9% 500 ML IV ONE (00:21)
[2020-07-07 03:42] LABS: Basophils # 0.1 10*3/uL (0.0-0.2); Basophils % 0.5 % (0.0-0.8); Hematocrit 28.3 VOL% (35.7-47.0); Hemoglobin 8.9 GM/DL (12.0-16.0); Immature Granulocytes % 1.8 %; Immature Granulocytes Absolute 0.43 #; Lymphocytes % 4.1 % (21.3-54.2); Mean Corpuscular HGB Conc 31.4 GM/DL (32-36); Mean Corpuscular Volume 91.9 FL (87-102); Mean Platelet Volume 9.8 FL (9.6-12.0); Monocytes % 4.7 % (1.7-12.7); NRBC # 0.05 10*3/uL; Neutrophils % 88.9 % (38.7-73.9); Platelet Count 282 T/CUMM (130-400); Red Blood Count 3.08 MC/CUMM (3.8-5.5); Red Cell Distribution Width 16.2 % (9.3-17.3); White Blood Count 23.6 T/CUMM (4-12)
[2020-07-07 03:59] LABS: Calcium 8.7 MG/DL (8.5-10.1); Osmolality,Calculated 284.8 MOS/KG (273-304); Potassium 4.8 MMOL/L (3.5-5.1)
[2020-07-07 04:19] LABS: Band Neutrophils 5 % (0-10); Hypochromasia 1+; Lymphocytes 6 % (20-55); Microcytosis 1+; Platelet Estimate Adequate; Segmented Neutrophils 84 % (50-85); Total Cells Counted 100
[2020-07-07 04:29] LABS: ABG Base Excess -3.6 MMOL/L (-2.5-2.5); ABG HCO3 21.4 MMOL/L (20-26); ABG Oxygen Saturation 97.8 % (95-100); ABG PCO2 37.6 MM HG (35-48); ABG PH 7.362 (7.35-7.45); ABG TCO2 19.4 MMOL/L (23-27); Allen Test Positive; Pt O2 Delivery Device Ventilator
[2020-07-07] MEDS ORDERED: PHENYLEPHRINE INJ 160 MG in SODIUM CHLORIDE 0.9% 234 ML IV PRN (08:48)
[2020-07-07] MEDS: PANTOPRAZOLE 40 MG VIAL IV SCH (09:07)
[2020-07-07] MEDS: PIPERACILLIN/TAZOBACTAM 3,375 MG in SODIUM CHLORIDE 0.9% 100 ML IV SCH ×2 (10:22→20:34)
[2020-07-07] MEDS ORDERED: SEVOFLURANE 1 UNIT/15 MINUTE INH ONE (10:48)
[2020-07-07] MEDS ORDERED: propofoL 200 MG/20 ML VIAL IV ONE (10:48)
[2020-07-07] MEDS ORDERED: PHENYLEPHRINE 1 MG/10 ML SYRINGE IV ONE (10:48)
[2020-07-07] MEDS ORDERED: ROCURONIUM 50 MG/5 ML VIAL IV ONE (10:48)
[2020-07-07] MEDS ORDERED: fentaNYL 100 MCG/2 ML VIAL ONE (10:49)
[2020-07-07] MEDS ORDERED: ALBUMIN 25% 25 GM in PREMIX 1 EACH IV ONE (12:23)
[2020-07-07 12:41] LABS: Calcium 8.7 MG/DL (8.5-10.1); Osmolality,Calculated 293.4 MOS/KG (273-304); Potassium 5.1 MMOL/L (3.5-5.1)
[2020-07-07] MEDS: MORPHINE 4 MG/1 ML VIAL IV PRN ×2 (15:27→21:25)
[2020-07-07] MEDS: ENOXAPARIN 30 MG/0.3 ML SYRINGE SUBCUT SCH (15:55)
[2020-07-08 03:50] LABS: Basophils # 0.1 10*3/uL (0.0-0.2); Basophils % 0.3 % (0.0-0.8); Hematocrit 24.8 VOL% (35.7-47.0); Hemoglobin 8.1 GM/DL (12.0-16.0); Immature Granulocytes % 2.7 %; Immature Granulocytes Absolute 0.64 #; Lymphocytes # 0.7 10*3/uL (1.4-4.0); Lymphocytes % 2.8 % (21.3-54.2); Mean Corpuscular HGB Conc 32.7 GM/DL (32-36); Mean Corpuscular Volume 88.9 FL (87-102); Mean Platelet Volume 9.9 FL (9.6-12.0); Monocytes % 4.8 % (1.7-12.7); NRBC # 0.06 10*3/uL; Neutrophils % 89.4 % (38.7-73.9); Platelet Count 285 T/CUMM (130-400); Red Blood Count 2.79 MC/CUMM (3.8-5.5); Red Cell Distribution Width 16.2 % (9.3-17.3); White Blood Count 23.4 T/CUMM (4-12)
[2020-07-08 04:19] LABS: Band Neutrophils 2 % (0-10); Hypochromasia Slight; Lymphocytes 2 % (20-55); Platelet Estimate Normal; Segmented Neutrophils 93 % (50-85); Total Cells Counted 100
[2020-07-08 04:20] LABS: Calcium 9.2 MG/DL (8.5-10.1); Osmolality,Calculated 300.4 MOS/KG (273-304); Potassium 5.2 MMOL/L (3.5-5.1)
[2020-07-08 04:31] LABS: ABG Base Excess -2.1 MMOL/L (-2.5-2.5); ABG HCO3 22.3 MMOL/L (20-26); ABG PCO2 36.1 MM HG (35-48); ABG PH 7.408 (7.35-7.45); ABG PO2 126.2 MM HG (80-95); ABG TCO2 23.4 MMOL/L (23-27)
[2020-07-08] MEDS: HYDROCORTISONE 100 MG VIAL IV SCH ×3 (08:13→15:04)
[2020-07-08] MEDS: MORPHINE 4 MG/1 ML VIAL IV PRN (08:37)
[2020-07-08] MEDS: PANTOPRAZOLE 40 MG VIAL IV SCH (08:39)
[2020-07-08] MEDS: PIPERACILLIN/TAZOBACTAM 3,375 MG in SODIUM CHLORIDE 0.9% 100 ML IV SCH ×2 (08:41→21:15)
[2020-07-08] MEDS: SODIUM HYPOCHLORITE 0.25% IRRIG 473 ML BOTTLE TOP SCH (10:26)
[2020-07-08] MEDS: KETOROLAC 15 MG/1 ML VIAL IV SCH ×2 (12:12→17:29)
[2020-07-08] MEDS ORDERED: DEXTROSE 50% 25 GM/50 ML VIAL IV PRN (12:15)
[2020-07-08] MEDS ORDERED: GLUCAGON 1 MG VIAL IM PRN (12:15)
[2020-07-08] MEDS: ENOXAPARIN 30 MG/0.3 ML SYRINGE SUBCUT SCH (16:07)
[2020-07-08] MEDS ORDERED: DEXTROSE 10% 1,000 ML IV PRN (17:00)
[2020-07-08] MEDS: INSULIN REGULAR IV SCH (17:28)
[2020-07-08] MEDS: MULTIVITAMIN IV SCH (17:28)
[2020-07-08] MEDS: [UNRECOGNIZED DRUG - OTHER] IV SCH (17:28)
[2020-07-08] MEDS: TRACE ELEMENTS IV SCH (17:28)
[2020-07-08] MEDS: INSULIN REGULAR 100 UNIT/ML SUBCUT SCH (17:29)
[2020-07-08] MEDS ORDERED: GENTAMICIN INJ 120 MG in PREMIX 1 EACH IV ONE (21:00)
[2020-07-08] MEDS: HYDROmorphone 2 MG/1 ML VIAL IV PRN (21:17)
[2020-07-09] MEDS: HYDROmorphone 2 MG/1 ML VIAL IV PRN ×5 (00:19→23:45)
[2020-07-09] MEDS: INSULIN REGULAR 100 UNIT/ML SUBCUT SCH ×6 (00:45→20:42)
[2020-07-09] MEDS: HYDROCORTISONE 100 MG VIAL IV SCH ×3 (00:45→16:17)
[2020-07-09] MEDS: KETOROLAC 15 MG/1 ML VIAL IV SCH ×4 (00:50→18:31)
[2020-07-09 03:50] LABS: ABG Base Excess 4.3 MMOL/L (-2.5-2.5); ABG HCO3 27.5 MMOL/L (20-26); ABG PCO2 36.8 MM HG (35-48); ABG PH 7.492 (7.35-7.45); ABG PO2 117.7 MM HG (80-95); ABG TCO2 28.7 MMOL/L (23-27)
[2020-07-09 04:57] LABS: Basophils # 0.1 10*3/uL (0.0-0.2); Basophils % 0.5 % (0.0-0.8); Eosinophils # 0.2 10*3/uL (0.0-0.87); Eosinophils % 1.5 % (0.00-10.9); Hematocrit 29.3 VOL% (35.7-47.0); Hemoglobin 9.5 GM/DL (12.0-16.0); Immature Granulocytes % 3.8 %; Immature Granulocytes Absolute 0.49 #; Lymphocytes # 0.8 10*3/uL (1.4-4.0); Lymphocytes % 6.1 % (21.3-54.2); Mean Corpuscular HGB Conc 32.4 GM/DL (32-36); Mean Corpuscular Volume 94.2 FL (87-102); Mean Platelet Volume 11.9 FL (9.6-12.0); Monocytes % 6.2 % (1.7-12.7); Neutrophils % 81.9 % (38.7-73.9); Platelet Count 229 T/CUMM (130-400); Red Blood Count 3.11 MC/CUMM (3.8-5.5); Red Cell Distribution Width 20.9 % (9.3-17.3)
[2020-07-09 05:21] LABS: Calcium 6.9 MG/DL (8.5-10.1); Osmolality,Calculated 302.1 MOS/KG (273-304); Potassium 4.2 MMOL/L (3.5-5.1)
[2020-07-09] MEDS: SODIUM HYPOCHLORITE 0.25% IRRIG 473 ML BOTTLE TOP SCH (08:51)
[2020-07-09] MEDS: PANTOPRAZOLE 40 MG VIAL IV SCH (08:51)
[2020-07-09] MEDS: PIPERACILLIN/TAZOBACTAM 3,375 MG in SODIUM CHLORIDE 0.9% 100 ML IV SCH ×2 (08:52→20:37)
[2020-07-09] MEDS: DEXTROSE 50% IV SCH (16:12)
[2020-07-09] MEDS: ZINC IV SCH (16:12)
[2020-07-09] MEDS: COPPER IV SCH (16:12)
[2020-07-09] MEDS: INSULIN REGULAR IV SCH ×2 (16:12→16:42)
[2020-07-09] MEDS: [UNRECOGNIZED DRUG - OTHER] IV SCH (16:12)
[2020-07-09] MEDS: FAT EMULSION 20% 250 ML IV SCH (16:12)
[2020-07-09] MEDS: SELENIUM IV SCH (16:12)
[2020-07-09] MEDS: MANGANESE IV SCH (16:12)
[2020-07-09] MEDS: ENOXAPARIN 30 MG/0.3 ML SYRINGE SUBCUT SCH (16:16)
[2020-07-09] MEDS: TRACE ELEMENTS IV SCH (16:42)
[2020-07-09] MEDS: MULTIVITAMIN IV SCH (16:42)
[2020-07-09] MEDS: [UNRECOGNIZED DRUG - OTHER] IV SCH (16:42)
[2020-07-09] MEDS ORDERED: INSULIN REGULAR IV SCH (17:00)
[2020-07-09] MEDS ORDERED: TRACE ELEMENTS IV SCH (17:00)
[2020-07-09] MEDS ORDERED: AMINO ACIDS 10% IV SCH (17:00)
[2020-07-09] MEDS ORDERED: [UNRECOGNIZED DRUG - OTHER] IV SCH (17:00)
[2020-07-09] MEDS ORDERED: INSULIN GLARGINE 100 UNIT/ML SUBCUT SCH (21:00)
[2020-07-10] MEDS: HYDROCORTISONE 100 MG VIAL IV SCH ×4 (00:20→23:57)
[2020-07-10] MEDS: KETOROLAC 15 MG/1 ML VIAL IV SCH ×4 (00:21→17:57)
[2020-07-10] MEDS: INSULIN REGULAR 100 UNIT/ML SUBCUT SCH ×4 (00:22→17:57)
[2020-07-10 03:08] LABS: ABG Base Excess 1.5 MMOL/L (-2.5-2.5); ABG HCO3 25.8 MMOL/L (20-26); ABG Oxygen Saturation 97.8 % (95-100); ABG PCO2 39.4 MM HG (35-48); ABG PH 7.434 (7.35-7.45); ABG PO2 116.2 MM HG (80-95)
[2020-07-10 03:42] LABS: Basophils # 0.1 10*3/uL (0.0-0.2); Basophils % 0.3 % (0.0-0.8); Eosinophils % 0.1 % (0.00-10.9); Hemoglobin 7.2 GM/DL (12.0-16.0); Immature Granulocytes % 5.7 %; Immature Granulocytes Absolute 1.22 #; Lymphocytes # 0.8 10*3/uL (1.4-4.0); Lymphocytes % 3.5 % (21.3-54.2); Mean Corpuscular HGB Conc 31.3 GM/DL (32-36); Mean Corpuscular Volume 89.8 FL (87-102); Mean Platelet Volume 9.7 FL (9.6-12.0); Monocytes % 3.8 % (1.7-12.7); NRBC # 0.08 10*3/uL; Neutrophils % 86.6 % (38.7-73.9); Platelet Count 269 T/CUMM (130-400); Red Blood Count 2.56 MC/CUMM (3.8-5.5); Red Cell Distribution Width 16.1 % (9.3-17.3); White Blood Count 21.4 T/CUMM (4-12)
[2020-07-10 04:02] LABS: Albumin 1.7 G/DL (3.4-5.0); Bilirubin,Total 0.9 MG/DL (0.2-1.0); Calcium 10.9 MG/DL (8.5-10.1); Potassium 3.8 MMOL/L (3.5-5.1); Total Protein 6.9 G/DL (6.4-8.3)
[2020-07-10 04:07] LABS: Band Neutrophils 2 % (0-10); Lymphocytes 5 % (20-55); Nucleated Red Blood Cells 1 (0-5); Platelet Estimate Normal; Segmented Neutrophils 90 % (50-85); Total Cells Counted 100
[2020-07-10 04:08] LABS: Hypochromasia 1+
[2020-07-10] MEDS ORDERED: SODIUM CHLORIDE 0.9% 1,000 ML IV PRN (08:50)
[2020-07-10] MEDS: PANTOPRAZOLE 40 MG VIAL IV SCH (09:25)
[2020-07-10] MEDS: SODIUM HYPOCHLORITE 0.25% IRRIG 473 ML BOTTLE TOP SCH (09:26)
[2020-07-10] MEDS: PIPERACILLIN/TAZOBACTAM 3,375 MG in SODIUM CHLORIDE 0.9% 100 ML IV SCH ×2 (09:26→20:24)
[2020-07-10] MEDS: FAT EMULSION 20% 250 ML IV SCH (14:02)
[2020-07-10] MEDS: ENOXAPARIN 30 MG/0.3 ML SYRINGE SUBCUT SCH (17:02)
[2020-07-10] MEDS: HYDROmorphone 2 MG/1 ML VIAL IV PRN (17:02)
[2020-07-10] MEDS: MANGANESE IV SCH (17:56)
[2020-07-10] MEDS: INSULIN REGULAR IV SCH (17:56)
[2020-07-10] MEDS: ZINC IV SCH (17:56)
[2020-07-10] MEDS: COPPER IV SCH (17:56)
[2020-07-10] MEDS: [UNRECOGNIZED DRUG - OTHER] IV SCH (17:56)
[2020-07-10] MEDS: SELENIUM IV SCH (17:56)
[2020-07-10] MEDS: DEXTROSE 50% IV SCH (17:56)
[2020-07-10] MEDS ORDERED: INSULIN GLARGINE 100 UNIT/ML SUBCUT SCH (18:21)
[2020-07-10] MEDS: NYSTATIN 500,000 UNIT/5 ML UDCUP SWISH/SWAL SCH (20:24)
[2020-07-11] MEDS: HYDROmorphone 2 MG/1 ML VIAL IV PRN (02:15)
[2020-07-11 04:24] LABS: ABG Base Excess -2.6 MMOL/L (-2.5-2.5); ABG HCO3 22.2 MMOL/L (20-26); ABG Oxygen Saturation 97.2 % (95-100); ABG TCO2 22.9 MMOL/L (23-27)
[2020-07-11 04:52] LABS: Basophils # 0.1 10*3/uL (0.0-0.2); Basophils % 0.5 % (0.0-0.8); Eosinophils % 0.1 % (0.00-10.9); Hematocrit 26.7 VOL% (35.7-47.0); Hemoglobin 8.1 GM/DL (12.0-16.0); Immature Granulocytes % 7.3 %; Immature Granulocytes Absolute 1.74 #; Lymphocytes # 0.9 10*3/uL (1.4-4.0); Lymphocytes % 3.7 % (21.3-54.2); Mean Corpuscular HGB Conc 30.3 GM/DL (32-36); Mean Corpuscular Volume 92.7 FL (87-102); Monocytes % 5.7 % (1.7-12.7); NRBC # 0.06 10*3/uL; Neutrophils % 82.7 % (38.7-73.9); Platelet Count 313 T/CUMM (130-400); Red Blood Count 2.88 MC/CUMM (3.8-5.5); Red Cell Distribution Width 16.4 % (9.3-17.3)
[2020-07-11 05:11] LABS: Albumin 1.8 G/DL (3.4-5.0); Calcium 11.3 MG/DL (8.5-10.1); Osmolality,Calculated 315.1 MOS/KG (273-304); Potassium 4.2 MMOL/L (3.5-5.1); Total Protein 7.4 G/DL (6.4-8.3)
[2020-07-11 05:12] LABS: Lymphocytes 5 % (20-55); Segmented Neutrophils 88 % (50-85); Total Cells Counted 100
[2020-07-11 05:13] LABS: Hypochromasia 1+; Microcytosis 1+; Platelet Estimate Adequate
[2020-07-11] MEDS: KETOROLAC 15 MG/1 ML VIAL IV SCH ×4 (06:50→17:04)
[2020-07-11] MEDS: INSULIN REGULAR 100 UNIT/ML SUBCUT SCH ×4 (06:50→17:57)
[2020-07-11] MEDS: HYDROCORTISONE 100 MG VIAL IV SCH ×2 (07:00→16:36)
[2020-07-11] MEDS: SODIUM HYPOCHLORITE 0.25% IRRIG 473 ML BOTTLE TOP SCH (08:32)
[2020-07-11] MEDS: NYSTATIN 500,000 UNIT/5 ML UDCUP SWISH/SWAL SCH ×4 (08:33→21:55)
[2020-07-11] MEDS: hydrALAZINE 20 MG/1 ML VIAL IV PRN (08:33)
[2020-07-11] MEDS: PANTOPRAZOLE 40 MG VIAL IV SCH (08:33)
[2020-07-11] MEDS: PIPERACILLIN/TAZOBACTAM 3,375 MG in SODIUM CHLORIDE 0.9% 100 ML IV SCH ×2 (08:33→21:55)
[2020-07-11] MEDS ORDERED: GENTAMICIN INJ 140 MG in SODIUM CHLORIDE 0.9% 100 ML IV PRN (11:33)
[2020-07-11] MEDS: FAT EMULSION 20% 250 ML IV SCH (13:14)
[2020-07-11] MEDS: ENOXAPARIN 30 MG/0.3 ML SYRINGE SUBCUT SCH (16:36)
[2020-07-11] MEDS: COPPER IV SCH (16:37)
[2020-07-11] MEDS: SELENIUM IV SCH (16:37)
[2020-07-11] MEDS: MANGANESE IV SCH (16:37)
[2020-07-11] MEDS: ZINC IV SCH (16:37)
[2020-07-11] MEDS: [UNRECOGNIZED DRUG - OTHER] IV SCH (16:37)
[2020-07-11] MEDS: INSULIN REGULAR IV SCH (16:37)
[2020-07-11] MEDS ORDERED: TRACE ELEMENTS (5) 1 ML, MULTIVITAMIN INJ 10 ML, INSULIN REGULAR 20 UNIT in AMINO ACIDS... IV SCH (17:00)
[2020-07-11] MEDS ORDERED: GENTAMICIN INJ 140 MG in SODIUM CHLORIDE 0.9% 100 ML IV ONE (17:00)
[2020-07-11] MEDS ORDERED: INSULIN GLARGINE 100 UNIT/ML SUBCUT SCH (21:00)
[2020-07-12] MEDS: HYDROCORTISONE 100 MG VIAL IV SCH ×3 (00:08→22:05)
[2020-07-12] MEDS: KETOROLAC 15 MG/1 ML VIAL IV SCH ×4 (00:09→17:54)
[2020-07-12] MEDS: INSULIN REGULAR 100 UNIT/ML SUBCUT SCH ×4 (00:09→18:24)
[2020-07-12 04:32] LABS: ABG Base Excess -0.1 MMOL/L (-2.5-2.5); ABG HCO3 25.7 MMOL/L (20-26); ABG Oxygen Saturation 96.9 % (95-100); ABG PCO2 47.5 MM HG (35-48); ABG PH 7.351 (7.35-7.45); ABG TCO2 27.2 MMOL/L (23-27); Allen Test Positive
[2020-07-12 05:37] LABS: Basophils # 0.1 10*3/uL (0.0-0.2); Basophils % 0.7 % (0.0-0.8); Eosinophils # 0.1 10*3/uL (0.0-0.87); Eosinophils % 0.7 % (0.00-10.9); Hematocrit 31.6 VOL% (35.7-47.0); Hemoglobin 9.7 GM/DL (12.0-16.0); Immature Granulocytes % 9.5 %; Immature Granulocytes Absolute 1.73 #; Lymphocytes # 0.9 10*3/uL (1.4-4.0); Mean Corpuscular HGB Conc 30.7 GM/DL (32-36); Mean Corpuscular Volume 91.1 FL (87-102); Mean Platelet Volume 10.5 FL (9.6-12.0); Monocytes % 6.8 % (1.7-12.7); NRBC # 0.07 10*3/uL; Neutrophils % 77.3 % (38.7-73.9); Platelet Count 335 T/CUMM (130-400); Red Blood Count 3.47 MC/CUMM (3.8-5.5); Red Cell Distribution Width 16.4 % (9.3-17.3); White Blood Count 18.3 T/CUMM (4-12)
[2020-07-12 05:50] LABS: Calcium 11.6 MG/DL (8.5-10.1); Osmolality,Calculated 311.1 MOS/KG (273-304); Potassium 3.6 MMOL/L (3.5-5.1)
[2020-07-12 06:02] LABS: Eosinophils 2 % (0-10); Lymphocytes 10 % (20-55); Platelet Estimate Normal; Segmented Neutrophils 81 % (50-85); Total Cells Counted 100
[2020-07-12 06:03] LABS: Hypochromasia Slight
[2020-07-12] MEDS: INSULIN NPH 100 UNIT/ML SUBCUT SCH ×2 (10:12→22:18)
[2020-07-12] MEDS: SODIUM HYPOCHLORITE 0.25% IRRIG 473 ML BOTTLE TOP SCH (10:13)
[2020-07-12] MEDS: PANTOPRAZOLE 40 MG VIAL IV SCH (10:14)
[2020-07-12] MEDS: PIPERACILLIN/TAZOBACTAM 3,375 MG in SODIUM CHLORIDE 0.9% 100 ML IV SCH ×2 (10:14→22:00)
[2020-07-12] MEDS: [UNRECOGNIZED DRUG - OTHER] IV SCH (10:18)
[2020-07-12] MEDS: INSULIN REGULAR IV SCH ×2 (10:18→17:49)
[2020-07-12] MEDS: MANGANESE IV SCH ×2 (10:18→17:49)
[2020-07-12] MEDS: SELENIUM IV SCH ×2 (10:18→17:49)
[2020-07-12] MEDS: COPPER IV SCH ×2 (10:18→17:49)
[2020-07-12] MEDS: ZINC IV SCH ×2 (10:18→17:49)
[2020-07-12] MEDS: NYSTATIN 500,000 UNIT/5 ML UDCUP SWISH/SWAL SCH ×4 (10:18→22:05)
[2020-07-12] MEDS: FAT EMULSION 20% 250 ML IV SCH (15:24)
[2020-07-12] MEDS: ENOXAPARIN 30 MG/0.3 ML SYRINGE SUBCUT SCH (17:44)
[2020-07-12] MEDS: DEXTROSE 50% IV SCH (17:49)
[2020-07-12] MEDS: [UNRECOGNIZED DRUG - OTHER] IV SCH (17:49)
[2020-07-13] MEDS: KETOROLAC 15 MG/1 ML VIAL IV SCH ×2 (00:12→06:14)
[2020-07-13] MEDS: INSULIN REGULAR 100 UNIT/ML SUBCUT SCH ×4 (02:41→18:43)
[2020-07-13 06:42] LABS: Basophils # 0.1 10*3/uL (0.0-0.2); Basophils % 0.5 % (0.0-0.8); Eosinophils # 0.2 10*3/uL (0.0-0.87); Eosinophils % 0.9 % (0.00-10.9); Hematocrit 28.3 VOL% (35.7-47.0); Immature Granulocytes % 7.2 %; Immature Granulocytes Absolute 1.57 #; Lymphocytes % 4.8 % (21.3-54.2); Mean Corpuscular HGB Conc 31.8 GM/DL (32-36); Mean Platelet Volume 10.7 FL (9.6-12.0); Monocytes % 6.7 % (1.7-12.7); NRBC # 0.05 10*3/uL; Neutrophils % 79.9 % (38.7-73.9); Platelet Count 341 T/CUMM (130-400); Red Blood Count 3.11 MC/CUMM (3.8-5.5); Red Cell Distribution Width 16.8 % (9.3-17.3); White Blood Count 21.7 T/CUMM (4-12)
[2020-07-13 07:03] LABS: Band Neutrophils 1 % (0-10); Eosinophils 1 % (0-10); Hypochromasia 1+; Lymphocytes 5 % (20-55); Microcytosis 1+; Platelet Estimate Adequate; Segmented Neutrophils 82 % (50-85); Total Cells Counted 100
[2020-07-13] MEDS: SODIUM HYPOCHLORITE 0.25% IRRIG 473 ML BOTTLE TOP SCH (09:24)
[2020-07-13] MEDS: HYDROCORTISONE 100 MG VIAL IV SCH (09:25)
[2020-07-13] MEDS: PIPERACILLIN/TAZOBACTAM 3,375 MG in SODIUM CHLORIDE 0.9% 100 ML IV SCH ×2 (09:25→21:58)
[2020-07-13] MEDS: INSULIN NPH 100 UNIT/ML SUBCUT SCH ×2 (09:26→22:01)
[2020-07-13] MEDS: NYSTATIN 500,000 UNIT/5 ML UDCUP SWISH/SWAL SCH ×4 (09:26→21:58)
[2020-07-13] MEDS: PANTOPRAZOLE 40 MG VIAL IV SCH (09:26)
[2020-07-13] MEDS ORDERED: HYDROCORTISONE 100 MG VIAL IV ONE (09:37)
[2020-07-13] MEDS ORDERED: HYDROCORTISONE 100 MG VIAL IV SCH (10:00)
[2020-07-13] MEDS: ZINC IV SCH (17:01)
[2020-07-13] MEDS: COPPER IV SCH (17:01)
[2020-07-13] MEDS: INSULIN REGULAR IV SCH (17:01)
[2020-07-13] MEDS: [UNRECOGNIZED DRUG - OTHER] IV SCH (17:01)
[2020-07-13] MEDS: SELENIUM IV SCH (17:01)
[2020-07-13] MEDS: MANGANESE IV SCH (17:01)
[2020-07-13] MEDS: ENOXAPARIN 30 MG/0.3 ML SYRINGE SUBCUT SCH (17:02)
[2020-07-13] MEDS: FAT EMULSION 20% 250 ML IV SCH (17:04)
[2020-07-14] MEDS: INSULIN REGULAR 100 UNIT/ML SUBCUT SCH ×4 (01:05→17:02)
[2020-07-14 05:41] LABS: Basophils # 0.1 10*3/uL (0.0-0.2); Basophils % 0.4 % (0.0-0.8); Eosinophils # 0.5 10*3/uL (0.0-0.87); Eosinophils % 2.1 % (0.00-10.9); Hematocrit 28.3 VOL% (35.7-47.0); Immature Granulocytes % 7.4 %; Immature Granulocytes Absolute 1.83 #; Lymphocytes # 1.2 10*3/uL (1.4-4.0); Lymphocytes % 4.9 % (21.3-54.2); Mean Corpuscular HGB Conc 31.8 GM/DL (32-36); Mean Corpuscular Volume 89.6 FL (87-102); Mean Platelet Volume 10.7 FL (9.6-12.0); Monocytes % 7.1 % (1.7-12.7); NRBC # 0.06 10*3/uL; Neutrophils % 78.1 % (38.7-73.9); Platelet Count 389 T/CUMM (130-400); Red Blood Count 3.16 MC/CUMM (3.8-5.5); Red Cell Distribution Width 16.6 % (9.3-17.3); White Blood Count 24.6 T/CUMM (4-12)
[2020-07-14 06:10] LABS: Calcium 11.6 MG/DL (8.5-10.1); Osmolality,Calculated 299.8 MOS/KG (273-304)
[2020-07-14 06:16] LABS: Band Neutrophils 2 % (0-10); Eosinophils 5 % (0-10); Hypochromasia Slight; Lymphocytes 13 % (20-55); Platelet Estimate Normal; Segmented Neutrophils 75 % (50-85); Total Cells Counted 100
[2020-07-14] MEDS: HYDROmorphone 2 MG/1 ML VIAL IV PRN (07:28)
[2020-07-14] MEDS: INSULIN NPH 100 UNIT/ML SUBCUT SCH ×2 (09:35→21:36)
[2020-07-14] MEDS: PANTOPRAZOLE 40 MG VIAL IV SCH (09:35)
[2020-07-14] MEDS: PIPERACILLIN/TAZOBACTAM 3,375 MG in SODIUM CHLORIDE 0.9% 100 ML IV SCH ×2 (09:36→21:36)
[2020-07-14] MEDS: SODIUM HYPOCHLORITE 0.25% IRRIG 473 ML BOTTLE TOP SCH (09:37)
[2020-07-14] MEDS: NYSTATIN 500,000 UNIT/5 ML UDCUP SWISH/SWAL SCH ×4 (09:38→21:36)
[2020-07-14] MEDS: FAT EMULSION 20% 250 ML IV SCH (16:40)
[2020-07-14] MEDS: ENOXAPARIN 30 MG/0.3 ML SYRINGE SUBCUT SCH (16:44)
[2020-07-14] MEDS: [UNRECOGNIZED DRUG - OTHER] IV SCH (16:45)
[2020-07-14] MEDS: MANGANESE IV SCH (16:45)
[2020-07-14] MEDS: INSULIN REGULAR IV SCH (16:45)
[2020-07-14] MEDS: COPPER IV SCH (16:45)
[2020-07-14] MEDS: DEXTROSE 50% IV SCH (16:45)
[2020-07-14] MEDS: ZINC IV SCH (16:45)
[2020-07-14] MEDS: SELENIUM IV SCH (16:45)
[2020-07-15] MEDS: INSULIN REGULAR 100 UNIT/ML SUBCUT SCH ×5 (01:13→23:38)
[2020-07-15 06:06] LABS: Basophils # 0.1 10*3/uL (0.0-0.2); Basophils % 0.4 % (0.0-0.8); Eosinophils # 0.7 10*3/uL (0.0-0.87); Eosinophils % 2.5 % (0.00-10.9); Hematocrit 26.8 VOL% (35.7-47.0); Hemoglobin 8.5 GM/DL (12.0-16.0); Immature Granulocytes % 6.4 %; Immature Granulocytes Absolute 1.66 #; Lymphocytes # 1.3 10*3/uL (1.4-4.0); Lymphocytes % 4.9 % (21.3-54.2); Mean Corpuscular HGB Conc 31.7 GM/DL (32-36); Mean Corpuscular Volume 88.7 FL (87-102); Mean Platelet Volume 10.8 FL (9.6-12.0); Monocytes % 8.5 % (1.7-12.7); NRBC # 0.04 10*3/uL; Neutrophils % 77.3 % (38.7-73.9); Platelet Count 449 T/CUMM (130-400); Red Blood Count 3.02 MC/CUMM (3.8-5.5); Red Cell Distribution Width 16.6 % (9.3-17.3); White Blood Count 25.9 T/CUMM (4-12)
[2020-07-15 08:54] LABS: Eosinophils 3 % (0-10); Lymphocytes 7 % (20-55); Polychromasia Slight; Segmented Neutrophils 72 % (50-85); Total Cells Counted 100
[2020-07-15] MEDS: PANTOPRAZOLE 40 MG VIAL IV SCH (11:17)
[2020-07-15] MEDS: NYSTATIN 500,000 UNIT/5 ML UDCUP SWISH/SWAL SCH ×4 (11:18→20:52)
[2020-07-15] MEDS: INSULIN NPH 100 UNIT/ML SUBCUT SCH ×2 (11:18→20:52)
[2020-07-15] MEDS: PIPERACILLIN/TAZOBACTAM 3,375 MG in SODIUM CHLORIDE 0.9% 100 ML IV SCH ×2 (11:18→20:52)
[2020-07-15] MEDS: SODIUM HYPOCHLORITE 0.25% IRRIG 473 ML BOTTLE TOP SCH (11:19)
[2020-07-15] MEDS: FAT EMULSION 20% 250 ML IV SCH (17:31)
[2020-07-15] MEDS: ZINC IV SCH (17:34)
[2020-07-15] MEDS: SELENIUM IV SCH (17:34)
[2020-07-15] MEDS: COPPER IV SCH (17:34)
[2020-07-15] MEDS: [UNRECOGNIZED DRUG - OTHER] IV SCH (17:34)
[2020-07-15] MEDS: MANGANESE IV SCH (17:34)
[2020-07-15] MEDS: INSULIN REGULAR IV SCH (17:34)
[2020-07-15] MEDS: ENOXAPARIN 30 MG/0.3 ML SYRINGE SUBCUT SCH (17:35)
[2020-07-16] MEDS: INSULIN REGULAR 100 UNIT/ML SUBCUT SCH ×4 (05:34→23:08)
[2020-07-16] MEDS: PANTOPRAZOLE 40 MG VIAL IV SCH (09:17)
[2020-07-16] MEDS: INSULIN NPH 100 UNIT/ML SUBCUT SCH ×2 (09:18→20:38)
[2020-07-16] MEDS: NYSTATIN 500,000 UNIT/5 ML UDCUP SWISH/SWAL SCH ×4 (09:18→20:39)
[2020-07-16] MEDS: SODIUM HYPOCHLORITE 0.25% IRRIG 473 ML BOTTLE TOP SCH (09:18)
[2020-07-16] MEDS: PIPERACILLIN/TAZOBACTAM 3,375 MG in SODIUM CHLORIDE 0.9% 100 ML IV SCH ×2 (09:22→20:39)
[2020-07-16 09:32] LABS: Basophils # 0.1 10*3/uL (0.0-0.2); Basophils % 0.4 % (0.0-0.8); Eosinophils # 0.5 10*3/uL (0.0-0.87); Eosinophils % 1.7 % (0.00-10.9); Hematocrit 26.8 VOL% (35.7-47.0); Hemoglobin 8.7 GM/DL (12.0-16.0); Immature Granulocytes % 5.7 %; Immature Granulocytes Absolute 1.66 #; Lymphocytes # 1.2 10*3/uL (1.4-4.0); Lymphocytes % 4.2 % (21.3-54.2); Mean Corpuscular HGB Conc 32.5 GM/DL (32-36); Mean Corpuscular Volume 87.3 FL (87-102); Mean Platelet Volume 10.3 FL (9.6-12.0); Monocytes % 9.5 % (1.7-12.7); NRBC # 0.05 10*3/uL; Neutrophils % 78.5 % (38.7-73.9); Platelet Count 490 T/CUMM (130-400); Red Blood Count 3.07 MC/CUMM (3.8-5.5); Red Cell Distribution Width 16.3 % (9.3-17.3); White Blood Count 28.9 T/CUMM (4-12)
[2020-07-16 09:53] LABS: Band Neutrophils 13 % (0-10); Eosinophils 3 % (0-10); Lymphocytes 2 % (20-55); Myelocytes 2 %; Platelet Estimate Normal; Segmented Neutrophils 69 % (50-85); Total Cells Counted 100
[2020-07-16 09:54] LABS: Anisocytosis 1+; Hypochromasia 1+; Poikilocytosis Slight
[2020-07-16] MEDS: FAT EMULSION 20% 250 ML IV SCH (14:42)
[2020-07-16] MEDS: ONDANSETRON 4 MG/2 ML VIAL IV PRN ×2 (15:00→20:38)
[2020-07-16] MEDS: ENOXAPARIN 30 MG/0.3 ML SYRINGE SUBCUT SCH (16:17)
[2020-07-16] MEDS: ZINC IV SCH (16:17)
[2020-07-16] MEDS: COPPER IV SCH (16:17)
[2020-07-16] MEDS: [UNRECOGNIZED DRUG - OTHER] IV SCH (16:17)
[2020-07-16] MEDS: INSULIN REGULAR IV SCH (16:17)
[2020-07-16] MEDS: SELENIUM IV SCH (16:17)
[2020-07-16] MEDS: DEXTROSE 50% IV SCH (16:17)
[2020-07-16] MEDS: MANGANESE IV SCH (16:17)
[2020-07-16] MEDS: HYDROmorphone 2 MG/1 ML VIAL IV PRN (17:53)
[2020-07-17 05:34] LABS: Basophils # 0.1 10*3/uL (0.0-0.2); Basophils % 0.8 % (0.0-0.8); Eosinophils # 0.3 10*3/uL (0.0-0.87); Eosinophils % 1.7 % (0.00-10.9); Hematocrit 41.6 VOL% (35.7-47.0); Hemoglobin 13.6 GM/DL (12.0-16.0); Immature Granulocytes % 5.4 %; Immature Granulocytes Absolute 0.85 #; Lymphocytes # 0.7 10*3/uL (1.4-4.0); Lymphocytes % 4.5 % (21.3-54.2); Mean Corpuscular HGB Conc 32.7 GM/DL (32-36); Mean Corpuscular Volume 86.3 FL (87-102); Mean Platelet Volume 10.4 FL (9.6-12.0); NRBC # 0.03 10*3/uL; Neutrophils % 78.6 % (38.7-73.9); Platelet Count 403 T/CUMM (130-400); Red Blood Count 4.82 MC/CUMM (3.8-5.5); Red Cell Distribution Width 16.5 % (9.3-17.3); White Blood Count 15.6 T/CUMM (4-12)
[2020-07-17] MEDS: INSULIN REGULAR 100 UNIT/ML SUBCUT SCH ×4 (05:42→23:27)
[2020-07-17 06:03] LABS: Band Neutrophils 11 % (0-10); Eosinophils 1 % (0-10); Lymphocytes 7 % (20-55); Nucleated Red Blood Cells 1 (0-5); Platelet Estimate Normal; Segmented Neutrophils 68 % (50-85); Total Cells Counted 100
[2020-07-17 06:04] LABS: Anisocytosis 1+; Macrocytosis 1+
[2020-07-17] MEDS: PIPERACILLIN/TAZOBACTAM 3,375 MG in SODIUM CHLORIDE 0.9% 100 ML IV SCH ×2 (08:37→20:08)
[2020-07-17] MEDS: SODIUM HYPOCHLORITE 0.25% IRRIG 473 ML BOTTLE TOP SCH (08:38)
[2020-07-17] MEDS: PANTOPRAZOLE 40 MG VIAL IV SCH (08:38)
[2020-07-17] MEDS: NYSTATIN 500,000 UNIT/5 ML UDCUP SWISH/SWAL SCH ×4 (08:38→20:07)
[2020-07-17] MEDS: INSULIN NPH 100 UNIT/ML SUBCUT SCH ×2 (08:38→20:07)
[2020-07-17] MEDS: FAT EMULSION 20% 250 ML IV SCH (15:10)
[2020-07-17] MEDS: MANGANESE IV SCH (17:34)
[2020-07-17] MEDS: INSULIN REGULAR IV SCH (17:34)
[2020-07-17] MEDS: SELENIUM IV SCH (17:34)
[2020-07-17] MEDS: [UNRECOGNIZED DRUG - OTHER] IV SCH (17:34)
[2020-07-17] MEDS: ZINC IV SCH (17:34)
[2020-07-17] MEDS: COPPER IV SCH (17:34)
[2020-07-17] MEDS: DEXTROSE 50% IV SCH (17:34)
[2020-07-17] MEDS: ENOXAPARIN 30 MG/0.3 ML SYRINGE SUBCUT SCH (17:35)
[2020-07-18 04:38] LABS: Basophils # 0.2 10*3/uL (0.0-0.2); Basophils % 0.8 % (0.0-0.8); Eosinophils # 0.4 10*3/uL (0.0-0.87); Eosinophils % 2.1 % (0.00-10.9); Hematocrit 36.3 VOL% (35.7-47.0); Hemoglobin 11.4 GM/DL (12.0-16.0); Immature Granulocytes % 5.3 %; Lymphocytes % 5.3 % (21.3-54.2); Mean Corpuscular HGB Conc 31.4 GM/DL (32-36); Mean Corpuscular Volume 88.3 FL (87-102); Mean Platelet Volume 10.8 FL (9.6-12.0); Monocytes % 9.8 % (1.7-12.7); NRBC # 0.02 10*3/uL; Neutrophils % 76.7 % (38.7-73.9); Platelet Count 489 T/CUMM (130-400); Red Blood Count 4.11 MC/CUMM (3.8-5.5); Red Cell Distribution Width 16.6 % (9.3-17.3); White Blood Count 18.9 T/CUMM (4-12)
[2020-07-18 04:40] LABS: Calcium 11.6 MG/DL (8.5-10.1); Osmolality,Calculated 304.8 MOS/KG (273-304); Potassium 3.4 MMOL/L (3.5-5.1)
[2020-07-18 05:01] LABS: Band Neutrophils 2 % (0-10); Eosinophils 1 % (0-10); Hypochromasia 1+; Lymphocytes 5 % (20-55); Microcytosis 1+; Platelet Estimate Adequate; Segmented Neutrophils 75 % (50-85); Total Cells Counted 100
[2020-07-18] MEDS: INSULIN REGULAR 100 UNIT/ML SUBCUT SCH ×3 (05:19→17:10)
[2020-07-18] MEDS: NYSTATIN 500,000 UNIT/5 ML UDCUP SWISH/SWAL SCH ×4 (08:16→21:09)
[2020-07-18] MEDS: SODIUM HYPOCHLORITE 0.25% IRRIG 473 ML BOTTLE TOP SCH (08:16)
[2020-07-18] MEDS: PIPERACILLIN/TAZOBACTAM 3,375 MG in SODIUM CHLORIDE 0.9% 100 ML IV SCH ×2 (08:16→21:09)
[2020-07-18] MEDS: INSULIN NPH 100 UNIT/ML SUBCUT SCH ×2 (08:16→21:09)
[2020-07-18] MEDS: PANTOPRAZOLE 40 MG VIAL IV SCH (08:19)
[2020-07-18] MEDS: FAT EMULSION 20% 250 ML IV SCH (14:48)
[2020-07-18] MEDS: ENOXAPARIN 30 MG/0.3 ML SYRINGE SUBCUT SCH (16:38)
[2020-07-18] MEDS: COPPER IV SCH (16:39)
[2020-07-18] MEDS: [UNRECOGNIZED DRUG - OTHER] IV SCH (16:39)
[2020-07-18] MEDS: SELENIUM IV SCH (16:39)
[2020-07-18] MEDS: MANGANESE IV SCH (16:39)
[2020-07-18] MEDS: INSULIN REGULAR IV SCH (16:39)
[2020-07-18] MEDS: ZINC IV SCH (16:39)
[2020-07-19] MEDS: INSULIN REGULAR 100 UNIT/ML SUBCUT SCH ×5 (00:47→23:59)
[2020-07-19] MEDS: SODIUM HYPOCHLORITE 0.25% IRRIG 473 ML BOTTLE TOP SCH (10:05)
[2020-07-19] MEDS: PIPERACILLIN/TAZOBACTAM 3,375 MG in SODIUM CHLORIDE 0.9% 100 ML IV SCH ×2 (10:05→21:01)
[2020-07-19] MEDS: INSULIN NPH 100 UNIT/ML SUBCUT SCH ×2 (10:06→21:01)
[2020-07-19] MEDS: NYSTATIN 500,000 UNIT/5 ML UDCUP SWISH/SWAL SCH ×4 (10:06→21:00)
[2020-07-19] MEDS: PANTOPRAZOLE 40 MG VIAL IV SCH (10:10)
[2020-07-19] MEDS: FAT EMULSION 20% 250 ML IV SCH (13:25)
[2020-07-19] MEDS: ZINC IV SCH (16:42)
[2020-07-19] MEDS: COPPER IV SCH (16:42)
[2020-07-19] MEDS: DEXTROSE 50% IV SCH (16:42)
[2020-07-19] MEDS: INSULIN REGULAR IV SCH (16:42)
[2020-07-19] MEDS: ENOXAPARIN 30 MG/0.3 ML SYRINGE SUBCUT SCH (16:42)
[2020-07-19] MEDS: SELENIUM IV SCH (16:42)
[2020-07-19] MEDS: [UNRECOGNIZED DRUG - OTHER] IV SCH (16:42)
[2020-07-19] MEDS: MANGANESE IV SCH (16:42)
[2020-07-19] MEDS ORDERED: ACETAMINOPHEN 325 MG TABLET PO PRN (19:51)
[2020-07-20 05:21] LABS: Basophils # 0.1 10*3/uL (0.0-0.2); Basophils % 0.7 % (0.0-0.8); Eosinophils # 0.5 10*3/uL (0.0-0.87); Eosinophils % 2.7 % (0.00-10.9); Hematocrit 25.9 VOL% (35.7-47.0); Hemoglobin 8.2 GM/DL (12.0-16.0); Immature Granulocytes % 5.3 %; Immature Granulocytes Absolute 0.97 #; Lymphocytes # 1.2 10*3/uL (1.4-4.0); Lymphocytes % 6.7 % (21.3-54.2); Mean Corpuscular HGB Conc 31.7 GM/DL (32-36); Mean Corpuscular Volume 87.8 FL (87-102); Mean Platelet Volume 10.4 FL (9.6-12.0); Monocytes % 10.6 % (1.7-12.7); Platelet Count 494 T/CUMM (130-400); Red Blood Count 2.95 MC/CUMM (3.8-5.5); Red Cell Distribution Width 16.3 % (9.3-17.3); White Blood Count 18.3 T/CUMM (4-12)
[2020-07-20] MEDS: INSULIN REGULAR 100 UNIT/ML SUBCUT SCH ×3 (05:28→19:04)
[2020-07-20 05:43] LABS: Calcium 11.9 MG/DL (8.5-10.1); Osmolality,Calculated 299.5 MOS/KG (273-304); Potassium 3.5 MMOL/L (3.5-5.1)
[2020-07-20 05:48] LABS: Anisocytosis 1+; Atypical Lymphocytes Few; Band Neutrophils 13 % (0-10); Eosinophils 1 % (0-10); Lymphocytes 15 % (20-55); Macrocytosis Slight; Metamyelocytes 2 %; Nucleated Red Blood Cells 1 (0-5); Platelet Estimate Normal; Segmented Neutrophils 60 % (50-85); Total Cells Counted 100
[2020-07-20] MEDS: INSULIN NPH 100 UNIT/ML SUBCUT SCH ×2 (13:40→20:43)
[2020-07-20] MEDS: NYSTATIN 500,000 UNIT/5 ML UDCUP SWISH/SWAL SCH ×4 (13:40→20:50)
[2020-07-20] MEDS: PANTOPRAZOLE 40 MG VIAL IV SCH (13:41)
[2020-07-20] MEDS: PIPERACILLIN/TAZOBACTAM 3,375 MG in SODIUM CHLORIDE 0.9% 100 ML IV SCH (13:42)
[2020-07-20] MEDS: FAT EMULSION 20% 250 ML IV SCH (15:09)
[2020-07-20] MEDS: [UNRECOGNIZED DRUG - OTHER] IV SCH (16:11)
[2020-07-20] MEDS: ZINC IV SCH (16:11)
[2020-07-20] MEDS: MANGANESE IV SCH (16:11)
[2020-07-20] MEDS: INSULIN REGULAR IV SCH (16:11)
[2020-07-20] MEDS: COPPER IV SCH (16:11)
[2020-07-20] MEDS: SELENIUM IV SCH (16:11)
[2020-07-20] MEDS: ENOXAPARIN 30 MG/0.3 ML SYRINGE SUBCUT SCH (18:56)
[2020-07-20] MEDS: SODIUM HYPOCHLORITE 0.25% IRRIG 473 ML BOTTLE TOP SCH (18:56)
[2020-07-20] MEDS: hydrALAZINE 20 MG/1 ML VIAL IV PRN (23:47)
[2020-07-21] MEDS: INSULIN REGULAR 100 UNIT/ML SUBCUT SCH ×4 (00:57→17:24)
[2020-07-21] MEDS: PIPERACILLIN/TAZOBACTAM 3,375 MG in SODIUM CHLORIDE 0.9% 100 ML IV SCH ×2 (00:58→13:25)
[2020-07-21 05:19] LABS: Calcium 11.7 MG/DL (8.5-10.1); Osmolality,Calculated 289.7 MOS/KG (273-304); Potassium 3.2 MMOL/L (3.5-5.1)
[2020-07-21 08:58] LABS: Basophils # 0.1 10*3/uL (0.0-0.2); Basophils % 0.5 % (0.0-0.8); Eosinophils # 0.4 10*3/uL (0.0-0.87); Hematocrit 25.7 VOL% (35.7-47.0); Hemoglobin 8.2 GM/DL (12.0-16.0); Immature Granulocytes % 3.4 %; Immature Granulocytes Absolute 0.68 #; Lymphocytes # 1.3 10*3/uL (1.4-4.0); Lymphocytes % 6.3 % (21.3-54.2); Mean Corpuscular HGB Conc 31.9 GM/DL (32-36); Mean Corpuscular Volume 87.4 FL (87-102); Monocytes % 10.3 % (1.7-12.7); Neutrophils % 77.5 % (38.7-73.9); Platelet Count 457 T/CUMM (130-400); Red Blood Count 2.94 MC/CUMM (3.8-5.5); White Blood Count 20.1 T/CUMM (4-12)
[2020-07-21 09:19] LABS: Band Neutrophils 1 % (0-10); Eosinophils 1 % (0-10); Lymphocytes 7 % (20-55); Platelet Estimate Adequate; Segmented Neutrophils 81 % (50-85); Total Cells Counted 100
[2020-07-21 09:20] LABS: Hypochromasia 1+; Microcytosis 1+
[2020-07-21] MEDS: NYSTATIN 500,000 UNIT/5 ML UDCUP SWISH/SWAL SCH ×4 (09:50→21:38)
[2020-07-21] MEDS: INSULIN NPH 100 UNIT/ML SUBCUT SCH ×2 (09:50→21:38)
[2020-07-21] MEDS: SODIUM HYPOCHLORITE 0.25% IRRIG 473 ML BOTTLE TOP SCH (09:51)
[2020-07-21] MEDS: PANTOPRAZOLE 40 MG VIAL IV SCH (09:51)
[2020-07-21] MEDS: FAT EMULSION 20% 250 ML IV SCH (15:24)
[2020-07-21] MEDS: ENOXAPARIN 30 MG/0.3 ML SYRINGE SUBCUT SCH (15:31)
[2020-07-21] MEDS: ZINC IV SCH (17:24)
[2020-07-21] MEDS: SELENIUM IV SCH (17:24)
[2020-07-21] MEDS: MANGANESE IV SCH (17:24)
[2020-07-21] MEDS: DEXTROSE 50% IV SCH (17:24)
[2020-07-21] MEDS: INSULIN REGULAR IV SCH (17:24)
[2020-07-21] MEDS: [UNRECOGNIZED DRUG - OTHER] IV SCH (17:24)
[2020-07-21] MEDS: COPPER IV SCH (17:24)
[2020-07-22] MEDS: INSULIN REGULAR 100 UNIT/ML SUBCUT SCH ×4 (01:40→18:03)
[2020-07-22] MEDS: PIPERACILLIN/TAZOBACTAM 3,375 MG in SODIUM CHLORIDE 0.9% 100 ML IV SCH ×2 (01:40→15:17)
[2020-07-22 06:58] LABS: Calcium 11.9 MG/DL (8.5-10.1); Osmolality,Calculated 294.2 MOS/KG (273-304); Potassium 3.6 MMOL/L (3.5-5.1)
[2020-07-22] MEDS ORDERED: fentaNYL 100 MCG/2 ML VIAL IV ONE (07:34)
[2020-07-22] MEDS ORDERED: MIDAZOLAM 2 MG/2 ML VIAL IV ONE (07:34)
[2020-07-22] MEDS ORDERED: DIAZEPAM 5 MG TABLET PO ONE (07:34)
[2020-07-22] MEDS: NYSTATIN 500,000 UNIT/5 ML UDCUP SWISH/SWAL SCH ×4 (08:10→21:30)
[2020-07-22] MEDS: SODIUM HYPOCHLORITE 0.25% IRRIG 473 ML BOTTLE TOP SCH (08:16)
[2020-07-22] MEDS: INSULIN NPH 100 UNIT/ML SUBCUT SCH ×2 (08:18→21:29)
[2020-07-22] MEDS: PANTOPRAZOLE 40 MG VIAL IV SCH (08:18)
[2020-07-22 08:25] LABS: Basophils # 0.1 10*3/uL (0.0-0.2); Basophils % 0.5 % (0.0-0.8); Eosinophils # 0.5 10*3/uL (0.0-0.87); Eosinophils % 2.3 % (0.00-10.9); Hematocrit 24.5 VOL% (35.7-47.0); Hemoglobin 7.9 GM/DL (12.0-16.0); Immature Granulocytes % 2.8 %; Immature Granulocytes Absolute 0.62 #; Lymphocytes # 1.1 10*3/uL (1.4-4.0); Lymphocytes % 5.1 % (21.3-54.2); Mean Corpuscular HGB Conc 32.2 GM/DL (32-36); Mean Corpuscular Volume 86.6 FL (87-102); Mean Platelet Volume 10.2 FL (9.6-12.0); Monocytes % 8.3 % (1.7-12.7); Platelet Count 417 T/CUMM (130-400); Red Blood Count 2.83 MC/CUMM (3.8-5.5); Red Cell Distribution Width 15.8 % (9.3-17.3); White Blood Count 22.3 T/CUMM (4-12)
[2020-07-22 08:38] LABS: INR 1.2; PT Patient Result 12.8 SECS (9.8-11.9)
[2020-07-22 08:51] LABS: Eosinophils 3 % (0-10); Hypochromasia 2+; Lymphocytes 3 % (20-55); Microcytosis 1+; Platelet Estimate Adequate; Segmented Neutrophils 85 % (50-85); Total Cells Counted 100
[2020-07-22] MEDS ORDERED: MIDAZOLAM 2 MG/2 ML VIAL ONE (13:50)
[2020-07-22] MEDS ORDERED: fentaNYL 100 MCG/2 ML VIAL ONE (13:50)
[2020-07-22] MEDS: SODIUM CHLORIDE 0.45% 1,000 ML IV SCH (14:33)
[2020-07-22] MEDS: ENOXAPARIN 30 MG/0.3 ML SYRINGE SUBCUT SCH (16:26)
[2020-07-22] MEDS: FAT EMULSION 20% 250 ML IV SCH (16:26)
[2020-07-22] MEDS: [UNRECOGNIZED DRUG - OTHER] IV SCH (16:27)
[2020-07-22] MEDS: SELENIUM IV SCH (16:27)
[2020-07-22] MEDS: ZINC IV SCH (16:27)
[2020-07-22] MEDS: COPPER IV SCH (16:27)
[2020-07-22] MEDS: MANGANESE IV SCH (16:27)
[2020-07-22] MEDS: INSULIN REGULAR IV SCH (16:27)
[2020-07-23] MEDS: PIPERACILLIN/TAZOBACTAM 3,375 MG in SODIUM CHLORIDE 0.9% 100 ML IV SCH ×2 (00:58→12:30)
[2020-07-23] MEDS: INSULIN REGULAR 100 UNIT/ML SUBCUT SCH ×4 (00:58→17:45)
[2020-07-23 06:12] LABS: Basophils # 0.1 10*3/uL (0.0-0.2); Basophils % 0.5 % (0.0-0.8); Eosinophils # 0.6 10*3/uL (0.0-0.87); Eosinophils % 2.6 % (0.00-10.9); Hematocrit 23.5 VOL% (35.7-47.0); Hemoglobin 7.3 GM/DL (12.0-16.0); Immature Granulocytes % 2.7 %; Immature Granulocytes Absolute 0.56 #; Lymphocytes % 4.8 % (21.3-54.2); Mean Corpuscular HGB Conc 31.1 GM/DL (32-36); Mean Corpuscular Volume 88.7 FL (87-102); Mean Platelet Volume 10.3 FL (9.6-12.0); Monocytes % 7.5 % (1.7-12.7); Neutrophils % 81.9 % (38.7-73.9); Platelet Count 354 T/CUMM (130-400); Red Blood Count 2.65 MC/CUMM (3.8-5.5); Red Cell Distribution Width 15.9 % (9.3-17.3); White Blood Count 21.1 T/CUMM (4-12)
[2020-07-23 06:53] LABS: Hypochromasia 2+; Lymphocytes 4 % (20-55); Microcytosis 1+; Platelet Estimate Adequate; Segmented Neutrophils 88 % (50-85); Total Cells Counted 100
[2020-07-23] MEDS: SODIUM CHLORIDE 0.45% 1,000 ML IV SCH (09:07)
[2020-07-23] MEDS: NYSTATIN 500,000 UNIT/5 ML UDCUP SWISH/SWAL SCH ×4 (09:08→21:13)
[2020-07-23] MEDS: SODIUM HYPOCHLORITE 0.25% IRRIG 473 ML BOTTLE TOP SCH (11:00)
[2020-07-23] MEDS: INSULIN NPH 100 UNIT/ML SUBCUT SCH ×2 (11:01→21:21)
[2020-07-23] MEDS: PANTOPRAZOLE 40 MG VIAL IV SCH (11:04)
[2020-07-23] MEDS ORDERED: VANCOMYCIN INJ 1,000 MG in SODIUM CHLORIDE 0.9% 250 ML IV PRN (14:11)
[2020-07-23] MEDS: FAT EMULSION 20% 250 ML IV SCH (14:55)
[2020-07-23] MEDS ORDERED: VANCOMYCIN INJ 1,000 MG in SODIUM CHLORIDE 0.9% 250 ML IV ONE (17:00)
[2020-07-23] MEDS: ENOXAPARIN 30 MG/0.3 ML SYRINGE SUBCUT SCH (17:07)
[2020-07-23] MEDS: DEXTROSE 50% IV SCH (17:08)
[2020-07-23] MEDS: MANGANESE IV SCH (17:08)
[2020-07-23] MEDS: INSULIN REGULAR IV SCH (17:08)
[2020-07-23] MEDS: [UNRECOGNIZED DRUG - OTHER] IV SCH (17:08)
[2020-07-23] MEDS: COPPER IV SCH (17:08)
[2020-07-23] MEDS: ZINC IV SCH (17:08)
[2020-07-23] MEDS: SELENIUM IV SCH (17:08)
[2020-07-24] MEDS: INSULIN REGULAR 100 UNIT/ML SUBCUT SCH ×4 (00:36→17:34)
[2020-07-24] MEDS: PIPERACILLIN/TAZOBACTAM 3,375 MG in SODIUM CHLORIDE 0.9% 100 ML IV SCH (00:36)
[2020-07-24] MEDS: SODIUM CHLORIDE 0.45% 1,000 ML IV SCH (09:12)
[2020-07-24] MEDS: SODIUM HYPOCHLORITE 0.25% IRRIG 473 ML BOTTLE TOP SCH (11:03)
[2020-07-24] MEDS: INSULIN NPH 100 UNIT/ML SUBCUT SCH ×2 (11:03→21:38)
[2020-07-24] MEDS: NYSTATIN 500,000 UNIT/5 ML UDCUP SWISH/SWAL SCH ×4 (11:03→21:38)
[2020-07-24] MEDS: PANTOPRAZOLE 40 MG VIAL IV SCH (11:06)
[2020-07-24] MEDS: MEROPENEM 500 MG in SODIUM CHLORIDE 0.9% 100 ML IV SCH (11:09)
[2020-07-24] MEDS: FAT EMULSION 20% 250 ML IV SCH (13:24)
[2020-07-24] MEDS: ENOXAPARIN 30 MG/0.3 ML SYRINGE SUBCUT SCH (16:02)
[2020-07-24] MEDS: ZINC IV SCH (16:04)
[2020-07-24] MEDS: MANGANESE IV SCH (16:04)
[2020-07-24] MEDS: INSULIN REGULAR IV SCH (16:04)
[2020-07-24] MEDS: [UNRECOGNIZED DRUG - OTHER] IV SCH (16:04)
[2020-07-24] MEDS: DEXTROSE 50% IV SCH (16:04)
[2020-07-24] MEDS: COPPER IV SCH (16:04)
[2020-07-24] MEDS: SELENIUM IV SCH (16:04)
[2020-07-25] MEDS: INSULIN REGULAR 100 UNIT/ML SUBCUT SCH ×3 (00:49→14:41)
[2020-07-25] MEDS: NYSTATIN 500,000 UNIT/5 ML UDCUP SWISH/SWAL SCH ×2 (08:31→14:42)
[2020-07-25] MEDS: PANTOPRAZOLE 40 MG VIAL IV SCH (08:31)
[2020-07-25] MEDS: INSULIN NPH 100 UNIT/ML SUBCUT SCH (08:31)
[2020-07-25] MEDS: SODIUM HYPOCHLORITE 0.25% IRRIG 473 ML BOTTLE TOP SCH (08:31)
[2020-07-25 08:41] LABS: Basophils # 0.1 10*3/uL (0.0-0.2); Basophils % 0.5 % (0.0-0.8); Eosinophils # 0.6 10*3/uL (0.0-0.87); Eosinophils % 3.4 % (0.00-10.9); Hematocrit 23.2 VOL% (35.7-47.0); Hemoglobin 7.4 GM/DL (12.0-16.0); Immature Granulocytes % 1.5 %; Immature Granulocytes Absolute 0.26 #; Lymphocytes # 1.1 10*3/uL (1.4-4.0); Lymphocytes % 6.4 % (21.3-54.2); Mean Corpuscular HGB Conc 31.9 GM/DL (32-36); Mean Corpuscular Volume 87.9 FL (87-102); Mean Platelet Volume 10.1 FL (9.6-12.0); Monocytes % 8.3 % (1.7-12.7); Neutrophils % 79.9 % (38.7-73.9); Platelet Count 316 T/CUMM (130-400); Red Blood Count 2.64 MC/CUMM (3.8-5.5); Red Cell Distribution Width 15.8 % (9.3-17.3); White Blood Count 17.4 T/CUMM (4-12)
[2020-07-25] MEDS: SODIUM CHLORIDE 0.45% 1,000 ML IV SCH (08:44)
[2020-07-25 09:08] LABS: Calcium 11.9 MG/DL (8.5-10.1); Osmolality,Calculated 296.2 MOS/KG (273-304); Potassium 3.6 MMOL/L (3.5-5.1)
[2020-07-25] MEDS: MEROPENEM 500 MG in SODIUM CHLORIDE 0.9% 100 ML IV SCH (14:41)
[2020-07-25 14:54] VITALS: BP 150/64
[2020-07-25] MEDS: FAT EMULSION 20% 250 ML IV SCH (15:16)
== END 2020-07-25 17:16 | DRG 329 ==
LOC: N.ED 13:29 → N.EDINP 16:07 → SUATTDRO 16:07 → N.3E 17:02 → N.ICU 07-06 13:31 → N.3E 07-11 16:12
PROVIDERS: ADMIT Internal Medicine; ATTEND Internal Medicine

== ENCOUNTER 2020-09-26 10:36 | Inpatient (IN) ==
[2020-09-26] MEDS ORDERED: SODIUM CHLORIDE 0.9% 1,000 ML IV STA (11:15)
[2020-09-26 11:23] LABS: Basophils # 0.1 10*3/uL (0.0-0.2); Basophils % 0.3 % (0.0-0.8); Eosinophils % 0.1 % (0.00-10.9); Hematocrit 25.7 VOL% (35.7-47.0); Hemoglobin 7.6 GM/DL (12.0-16.0); Immature Granulocytes % 1.4 %; Immature Granulocytes Absolute 0.36 #; Lymphocytes # 1.9 10*3/uL (1.4-4.0); Lymphocytes % 7.1 % (21.3-54.2); Mean Corpuscular HGB Conc 29.6 GM/DL (32-36); Mean Corpuscular Volume 94.5 FL (87-102); Mean Platelet Volume 9.8 FL (9.6-12.0); Monocytes % 6.1 % (1.7-12.7); NRBC # 0.02 10*3/uL; Platelet Count 346 T/CUMM (130-400); Red Blood Count 2.72 MC/CUMM (3.8-5.5); Red Cell Distribution Width 16.7 % (9.3-17.3); White Blood Count 26.3 T/CUMM (4-12)
[2020-09-26 11:39] LABS: Alanine Aminotransferase 14 U/L (13-56); Albumin 1.9 G/DL (3.4-5.0); Alkaline Phosphatase 106 U/L (45-117); Aspartate Amino Transferase 25 U/L (0-37); Blood Urea Nitrogen 33 MG/DL (7-18); Calcium 10.2 MG/DL (8.5-10.1); Carbon Dioxide 33 MMOL/L (21-32); Estimated Glom Filtration Rate 11 ML/MIN; Glucose 199 MG/DL (74-106); Osmolality,Calculated 282.1 MOS/KG (273-304); Potassium 4.8 MMOL/L (3.5-5.1); Sodium 135 MMOL/L (136-145); Total Protein 5.9 G/DL (6.4-8.2)
[2020-09-26 11:40] LABS: Troponin I 0.145 NG/ML (0.00-0.045)
[2020-09-26 11:44] LABS: Hypochromasia 2+; Lymphocytes 7 % (20-55); Microcytosis 1+; Nucleated Red Blood Cells 1 (0-5); Platelet Estimate Adequate; Segmented Neutrophils 85 % (50-85); Total Cells Counted 100
[2020-09-26 11:49] LABS: INR 1.1; PT Patient Result 11.8 SECS (9.8-11.9); Partial Thromboplastin Time < 20.0 SECS (23.9-33.8)
[2020-09-26] MEDS ORDERED: cefTRIAXone 1,000 MG VIAL IM STA (12:00)
[2020-09-26] MEDS ORDERED: DEXAMETHASONE 10 MG/1 ML VIAL ONE (12:04)
[2020-09-26] MEDS ORDERED: ONDANSETRON 4 MG TABLET PO PRN (15:38)
[2020-09-26] MEDS ORDERED: DEXTROSE 50% 25 GM/50 ML VIAL IV PRN (15:38)
[2020-09-26] MEDS ORDERED: traMADol 50 MG TABLET PO PRN (15:38)
[2020-09-26] MEDS ORDERED: GLUCAGON 1 MG VIAL IM PRN (15:38)
[2020-09-26] MEDS ORDERED: INSULIN REGULAR 100 UNIT/ML SUBCUT SCH (15:38)
[2020-09-26] MEDS ORDERED: diphenhydrAMINE CAP 25 MG CAPSULE PO PRN (15:38)
[2020-09-26] MEDS ORDERED: ONDANSETRON 4 MG/2 ML VIAL IV PRN (15:38)
[2020-09-26] MEDS ORDERED: ACETAMINOPHEN 325 MG TABLET PO PRN ×2 (15:38)
[2020-09-26] MEDS: GABAPENTIN 300 MG CAPSULE PO SCH ×2 (16:15→20:46)
[2020-09-26] MEDS: FAMOTIDINE 20 MG TABLET PO SCH ×2 (16:15→21:57)
[2020-09-26] MEDS: SODIUM CHLORIDE 0.9% 1,000 ML IV SCH ×2 (16:28→23:45)
[2020-09-26] MEDS: PIPERACILLIN/TAZOBACTAM 3,375 MG in SODIUM CHLORIDE 0.9% 100 ML IV SCH (16:29)
[2020-09-26] MEDS: INSULIN NPH 100 UNIT/ML SUBCUT SCH ×2 (17:54→21:57)
[2020-09-26] MEDS: INSULIN REGULAR 100 UNIT/ML SUBCUT SCH (18:10)
[2020-09-26] MEDS: SEVELAMER CARBONATE 800 MG TABLET PO SCH (18:10)
[2020-09-26] MEDS: ROSUVASTATIN 20 MG TABLET PO SCH (20:46)
[2020-09-26] MEDS: DOCUSATE SODIUM 100 MG CAPSULE PO SCH (20:46)
[2020-09-26] MEDS: PANTOPRAZOLE 40 MG TABLET PO SCH (20:47)
[2020-09-26] MEDS: TRAVOPROST 0.004% OPH SOLN 2.5 ML BOTTLE BOTH EYES SCH (20:48)
[2020-09-26] MEDS: LATANOPROST 0.005% OPH SOLN 2.5 ML BOTTLE BOTH EYES SCH (20:49)
[2020-09-27] MEDS: INSULIN REGULAR 100 UNIT/ML SUBCUT SCH ×4 (00:27→18:26)
[2020-09-27] MEDS: PIPERACILLIN/TAZOBACTAM 3,375 MG in SODIUM CHLORIDE 0.9% 100 ML IV SCH ×3 (00:27→16:18)
[2020-09-27 06:16] LABS: Basophils # 0.1 10*3/uL (0.0-0.2); Basophils % 0.3 % (0.0-0.8); Eosinophils % 0.1 % (0.00-10.9); Hematocrit 27.7 VOL% (35.7-47.0); Hemoglobin 8.3 GM/DL (12.0-16.0); Immature Granulocytes % 1.1 %; Immature Granulocytes Absolute 0.29 #; Lymphocytes # 1.8 10*3/uL (1.4-4.0); Lymphocytes % 7.2 % (21.3-54.2); Mean Corpuscular Volume 93.3 FL (87-102); Monocytes % 5.7 % (1.7-12.7); Neutrophils % 85.6 % (38.7-73.9); Platelet Count 314 T/CUMM (130-400); Red Blood Count 2.97 MC/CUMM (3.8-5.5); Red Cell Distribution Width 16.7 % (9.3-17.3); White Blood Count 25.3 T/CUMM (4-12)
[2020-09-27 06:35] LABS: Hypochromasia 1+; Lymphocytes 6 % (20-55); Microcytosis 1+; Ovalocytes Slight; Polychromasia Slight; Segmented Neutrophils 90 % (50-85); Total Cells Counted 100
[2020-09-27 06:36] LABS: Platelet Estimate Normal
[2020-09-27 06:47] LABS: Osmolality,Calculated 277.2 MOS/KG (273-304)
[2020-09-27] MEDS ORDERED: PANTOPRAZOLE 40 MG TABLET PO SCH (09:00)
[2020-09-27] MEDS: SODIUM CHLORIDE 0.9% 1,000 ML IV SCH ×2 (09:00→15:22)
[2020-09-27] MEDS: GABAPENTIN 300 MG CAPSULE PO SCH ×3 (09:02→20:17)
[2020-09-27] MEDS: DOCUSATE SODIUM 100 MG CAPSULE PO SCH ×2 (09:02→20:17)
[2020-09-27] MEDS: CINACALCET 30 MG TABLET PO SCH (09:02)
[2020-09-27] MEDS: ENOXAPARIN 30 MG/0.3 ML SYRINGE SUBCUT SCH (09:02)
[2020-09-27] MEDS: SEVELAMER CARBONATE 800 MG TABLET PO SCH ×3 (09:03→16:19)
[2020-09-27] MEDS: predniSONE 20 MG TABLET PO SCH (09:03)
[2020-09-27] MEDS: FAMOTIDINE 20 MG TABLET PO SCH ×2 (09:03→20:17)
[2020-09-27] MEDS: CITALOPRAM 20 MG TABLET PO SCH (09:03)
[2020-09-27] MEDS: PANTOPRAZOLE 40 MG TABLET PO SCH ×2 (09:03→20:17)
[2020-09-27] MEDS: ASPIRIN CHEW 81 MG TABLET PO SCH (09:03)
[2020-09-27] MEDS: FLUTICASONE 50 MCG NASAL SPRAY 16 GM BOTTLE BOTH NARES SCH (09:03)
[2020-09-27] MEDS: INSULIN NPH 100 UNIT/ML SUBCUT SCH ×2 (09:04→20:18)
[2020-09-27] MEDS: ROSUVASTATIN 20 MG TABLET PO SCH (20:17)
[2020-09-27] MEDS: TRAVOPROST 0.004% OPH SOLN 2.5 ML BOTTLE BOTH EYES SCH (20:18)
[2020-09-27] MEDS: LATANOPROST 0.005% OPH SOLN 2.5 ML BOTTLE BOTH EYES SCH (20:18)
[2020-09-28] MEDS: SODIUM CHLORIDE 0.9% 1,000 ML IV SCH ×2 (00:36→10:58)
[2020-09-28] MEDS: PIPERACILLIN/TAZOBACTAM 3,375 MG in SODIUM CHLORIDE 0.9% 100 ML IV SCH ×3 (00:55→17:21)
[2020-09-28] MEDS: INSULIN REGULAR 100 UNIT/ML SUBCUT SCH ×4 (00:58→17:31)
[2020-09-28] MEDS: predniSONE 20 MG TABLET PO SCH (09:35)
[2020-09-28] MEDS: GABAPENTIN 300 MG CAPSULE PO SCH ×3 (09:35→21:15)
[2020-09-28] MEDS: CINACALCET 30 MG TABLET PO SCH (09:35)
[2020-09-28] MEDS: FAMOTIDINE 20 MG TABLET PO SCH ×2 (09:35→21:15)
[2020-09-28] MEDS: PANTOPRAZOLE 40 MG TABLET PO SCH ×2 (09:35→21:23)
[2020-09-28] MEDS: DOCUSATE SODIUM 100 MG CAPSULE PO SCH ×2 (09:35→21:15)
[2020-09-28] MEDS: ENOXAPARIN 30 MG/0.3 ML SYRINGE SUBCUT SCH (09:36)
[2020-09-28] MEDS: ASPIRIN CHEW 81 MG TABLET PO SCH (09:36)
[2020-09-28] MEDS: CITALOPRAM 20 MG TABLET PO SCH (09:36)
[2020-09-28] MEDS: FLUTICASONE 50 MCG NASAL SPRAY 16 GM BOTTLE BOTH NARES SCH (09:41)
[2020-09-28] MEDS: SODIUM HYPOCHLORITE 0.25% IRRIG 473 ML BOTTLE TOP SCH (09:43)
[2020-09-28] MEDS: COLLAGENASE OINT 30 GM TUBE TOP SCH (09:43)
[2020-09-28] MEDS: INSULIN NPH 100 UNIT/ML SUBCUT SCH ×2 (09:45→21:52)
[2020-09-28] MEDS: SEVELAMER CARBONATE 800 MG TABLET PO SCH ×3 (09:58→17:20)
[2020-09-28] MEDS: MENTHOL/ZINC OXIDE OINT 71 GM JAR TOP SCH ×2 (17:21→21:15)
[2020-09-28] MEDS: TRAVOPROST 0.004% OPH SOLN 2.5 ML BOTTLE BOTH EYES SCH (21:14)
[2020-09-28] MEDS: ROSUVASTATIN 20 MG TABLET PO SCH (21:15)
[2020-09-28] MEDS: LATANOPROST 0.005% OPH SOLN 2.5 ML BOTTLE BOTH EYES SCH ×2 (21:39→22:28)
[2020-09-29] MEDS: INSULIN REGULAR 100 UNIT/ML SUBCUT SCH ×4 (00:12→17:14)
[2020-09-29] MEDS: PIPERACILLIN/TAZOBACTAM 3,375 MG in SODIUM CHLORIDE 0.9% 100 ML IV SCH ×3 (00:21→16:50)
[2020-09-29 04:06] LABS: Calcium 9.3 MG/DL (8.5-10.1); Osmolality,Calculated 276.7 MOS/KG (273-304); Potassium 3.4 MMOL/L (3.5-5.1)
[2020-09-29 04:21] LABS: Basophils # 0.1 10*3/uL (0.0-0.2); Basophils % 0.3 % (0.0-0.8); Eosinophils # 0.1 10*3/uL (0.0-0.87); Eosinophils % 0.4 % (0.00-10.9); Hematocrit 26.1 VOL% (35.7-47.0); Hemoglobin 7.8 GM/DL (12.0-16.0); Immature Granulocytes % 1.1 %; Immature Granulocytes Absolute 0.21 #; Lymphocytes # 1.8 10*3/uL (1.4-4.0); Lymphocytes % 9.2 % (21.3-54.2); Mean Corpuscular HGB Conc 29.9 GM/DL (32-36); Mean Corpuscular Volume 93.9 FL (87-102); Mean Platelet Volume 9.8 FL (9.6-12.0); Monocytes % 5.7 % (1.7-12.7); NRBC # 0.02 10*3/uL; Neutrophils % 83.3 % (38.7-73.9); Platelet Count 378 T/CUMM (130-400); Red Blood Count 2.78 MC/CUMM (3.8-5.5); Red Cell Distribution Width 16.8 % (9.3-17.3); White Blood Count 19.8 T/CUMM (4-12)
[2020-09-29] MEDS: ENOXAPARIN 30 MG/0.3 ML SYRINGE SUBCUT SCH (10:34)
[2020-09-29] MEDS: INSULIN NPH 100 UNIT/ML SUBCUT SCH ×2 (10:35→22:50)
[2020-09-29] MEDS: GABAPENTIN 300 MG CAPSULE PO SCH ×3 (10:36→22:49)
[2020-09-29] MEDS: SEVELAMER CARBONATE 800 MG TABLET PO SCH ×3 (10:36→16:50)
[2020-09-29] MEDS: FAMOTIDINE 20 MG TABLET PO SCH ×2 (10:36→22:49)
[2020-09-29] MEDS: PANTOPRAZOLE 40 MG TABLET PO SCH ×2 (10:36→22:50)
[2020-09-29] MEDS: DOCUSATE SODIUM 100 MG CAPSULE PO SCH ×2 (10:36→22:50)
[2020-09-29] MEDS: CITALOPRAM 20 MG TABLET PO SCH (10:36)
[2020-09-29] MEDS: predniSONE 10 MG TABLET PO SCH (10:36)
[2020-09-29] MEDS: ASPIRIN CHEW 81 MG TABLET PO SCH (10:36)
[2020-09-29] MEDS: MENTHOL/ZINC OXIDE OINT 71 GM JAR TOP SCH ×2 (10:37→22:50)
[2020-09-29] MEDS: SODIUM HYPOCHLORITE 0.25% IRRIG 473 ML BOTTLE TOP SCH (10:37)
[2020-09-29] MEDS: FLUTICASONE 50 MCG NASAL SPRAY 16 GM BOTTLE BOTH NARES SCH (10:37)
[2020-09-29] MEDS: CINACALCET 30 MG TABLET PO SCH (14:42)
[2020-09-29] MEDS: COLLAGENASE OINT 30 GM TUBE TOP SCH (14:43)
[2020-09-29] MEDS: TRAVOPROST 0.004% OPH SOLN 2.5 ML BOTTLE BOTH EYES SCH (22:49)
[2020-09-29] MEDS: LATANOPROST 0.005% OPH SOLN 2.5 ML BOTTLE BOTH EYES SCH (22:49)
[2020-09-29] MEDS: ROSUVASTATIN 20 MG TABLET PO SCH (22:50)
[2020-09-30] MEDS: INSULIN REGULAR 100 UNIT/ML SUBCUT SCH ×3 (00:54→13:01)
[2020-09-30] MEDS: PIPERACILLIN/TAZOBACTAM 3,375 MG in SODIUM CHLORIDE 0.9% 100 ML IV SCH ×3 (00:54→15:05)
[2020-09-30 08:39] VITALS: BP 145/65
[2020-09-30] MEDS ORDERED: LEVOFLOXACIN 500 MG TABLET PO SCH ×2 (09:00→09:30)
[2020-09-30] MEDS: GABAPENTIN 300 MG CAPSULE PO SCH ×2 (09:42→15:00)
[2020-09-30] MEDS: ENOXAPARIN 30 MG/0.3 ML SYRINGE SUBCUT SCH (09:42)
[2020-09-30] MEDS: FLUTICASONE 50 MCG NASAL SPRAY 16 GM BOTTLE BOTH NARES SCH (09:42)
[2020-09-30] MEDS: CITALOPRAM 20 MG TABLET PO SCH (09:43)
[2020-09-30] MEDS: PANTOPRAZOLE 40 MG TABLET PO SCH (09:43)
[2020-09-30] MEDS: predniSONE 10 MG TABLET PO SCH (09:43)
[2020-09-30] MEDS: ASPIRIN CHEW 81 MG TABLET PO SCH (09:43)
[2020-09-30] MEDS: DOCUSATE SODIUM 100 MG CAPSULE PO SCH (09:43)
[2020-09-30] MEDS: FAMOTIDINE 20 MG TABLET PO SCH (09:43)
[2020-09-30] MEDS: SEVELAMER CARBONATE 800 MG TABLET PO SCH ×2 (09:43→13:02)
[2020-09-30] MEDS: CINACALCET 30 MG TABLET PO SCH (09:43)
[2020-09-30] MEDS: INSULIN NPH 100 UNIT/ML SUBCUT SCH (09:44)
[2020-09-30] MEDS: MENTHOL/ZINC OXIDE OINT 71 GM JAR TOP SCH (13:00)
[2020-09-30] MEDS: SODIUM HYPOCHLORITE 0.25% IRRIG 473 ML BOTTLE TOP SCH (13:00)
[2020-09-30] MEDS: COLLAGENASE OINT 30 GM TUBE TOP SCH (13:00)
== END 2020-09-30 16:07 | disposition swing bed (61) | DRG 193 ==
LOC: EDUNIT# → EDBD → N.ED 10:36 → N.EDINP 13:25 → N.TELEN 17:04
PROVIDERS: ADMIT Internal Medicine; ATTEND Internal Medicine

== ENCOUNTER 2020-10-03 17:10 | Inpatient (IN) ==
[2020-10-03] MEDS ORDERED: DEXTROSE 50% 25 GM/50 ML SYRINGE IV ONE (17:18)
[2020-10-03] MEDS ORDERED: DEXTROSE 50% 25 GM/50 ML VIAL IV STA ×2 (17:37→20:20)
[2020-10-03 17:47] LABS: Calcium 8.7 MG/DL (8.5-10.1); Potassium 3.7 MMOL/L (3.5-5.1)
[2020-10-03 17:49] LABS: Osmolality,Calculated 269.7 MOS/KG (273-304)
[2020-10-03 18:39] LABS: Basophils % 0.3 % (0.0-0.8); Eosinophils # 0.1 10*3/uL (0.0-0.87); Eosinophils % 0.7 % (0.00-10.9); Hematocrit 28.8 VOL% (35.7-47.0); Hemoglobin 8.4 GM/DL (12.0-16.0); Immature Granulocytes % 0.9 %; Immature Granulocytes Absolute 0.14 #; Lymphocytes # 1.2 10*3/uL (1.4-4.0); Lymphocytes % 7.8 % (21.3-54.2); Mean Corpuscular HGB Conc 29.2 GM/DL (32-36); Mean Corpuscular Volume 94.4 FL (87-102); Mean Platelet Volume 9.5 FL (9.6-12.0); Monocytes % 4.5 % (1.7-12.7); Neutrophils % 85.8 % (38.7-73.9); Platelet Count 296 T/CUMM (130-400); Red Blood Count 3.05 MC/CUMM (3.8-5.5); Red Cell Distribution Width 16.6 % (9.3-17.3); White Blood Count 15.3 T/CUMM (4-12)
[2020-10-03 18:40] LABS: ABG Base Excess 12.3 MMOL/L (-2.5-2.5); ABG HCO3 36.1 MMOL/L (20-26); ABG Oxygen Saturation 98.5 % (95-100); ABG PCO2 60.9 MM HG (35-48); ABG PH 7.413 (7.35-7.45); ABG PO2 98.4 MM HG (80-95); ABG TCO2 36.3 MMOL/L (23-27)
[2020-10-03 18:47] LABS: INR 1.1; PT Patient Result 12.4 SECS (10.5-12.0)
[2020-10-03 19:05] LABS: Alanine Aminotransferase 13 U/L (13-56); Albumin 1.7 G/DL (3.4-5.0); Alkaline Phosphatase 83 U/L (45-117); Aspartate Amino Transferase 11 U/L (0-37); Bilirubin,Total < 0.39 MG/DL (0.2-1.0); Blood Urea Nitrogen 8 MG/DL (7-18); Calcium 8.9 MG/DL (8.5-10.1); Carbon Dioxide 36 MMOL/L (21-32); Glucose 95 MG/DL (74-106); Osmolality,Calculated 276.4 MOS/KG (273-304); Potassium 3.2 MMOL/L (3.5-5.1); Sodium 140 MMOL/L (136-145); Total Protein 5.4 G/DL (6.4-8.2)
[2020-10-03 19:06] LABS: Estimated Glom Filtration Rate 0 ML/MIN
[2020-10-03 19:29] LABS: Bilirubin,Urine Negative (Negative); Blood, Urine Large mg/dL (Negative); Glucose,Urine (UA) Negative (Negative); Ketones,Urine Negative (Negative); Mucus,Urine Many /LPF (Occasional); Nitrite,Urine Negative (Negative); Protein,Urine 100 MG/DL; RBC,Urine 42 /HPF (0-4); Urine Appearance CLOUDY (Clear); Urine Color Red (Yellow); Urine Specific Gravity 1.025 (1.001-1.035); Urine Urobilinogen < 2.0 EU/DL (0.2-1.0)
[2020-10-03 19:31] LABS: Barbiturates Screen,Urine Negative (Negative); Benzodiazepines Screen,Urine Negative (Negative); Cannabinoid Screen,Urine Negative (Negative); Opiate Screen,Urine Negative (Negative); Phencyclidine Screen,Urine Negative (Negative)
[2020-10-03] MEDS ORDERED: cefTRIAXone 1,000 MG in SODIUM CHLORIDE 0.9% 100 ML IV STA (19:58)
[2020-10-03] MEDS ORDERED: DEXTROSE 10% 250 ML IV ONE (20:12)
[2020-10-03] MEDS ORDERED: DEXTROSE 10% 1,000 ML IV SCH (20:30)
[2020-10-03] MEDS ORDERED: HYDROCORTISONE 100 MG VIAL IV STA (21:34)
[2020-10-03] MEDS ORDERED: ACETAMINOPHEN 325 MG TABLET PO PRN (22:30)
[2020-10-03] MEDS ORDERED: CALCIUM CARBONATE CHEW 500 MG TABLET PO PRN (22:30)
[2020-10-03] MEDS ORDERED: ALBUTEROL 2.5 MG/3 ML NEB RESP TX PRN (22:30)
[2020-10-03] MEDS ORDERED: ONDANSETRON 4 MG/2 ML VIAL IV PRN (22:30)
[2020-10-03] MEDS: ENOXAPARIN 30 MG/0.3 ML SYRINGE SUBCUT SCH (22:48)
[2020-10-03] MEDS ORDERED: GLUCAGON 1 MG VIAL IM PRN (23:00)
[2020-10-03] MEDS ORDERED: FAMOTIDINE 20 MG TABLET PO SCH (23:00)
[2020-10-03] MEDS ORDERED: DEXTROSE 50% 25 GM/50 ML VIAL IV PRN (23:00)
[2020-10-03] MEDS ORDERED: LEVOFLOXACIN INJ 750 MG/150 ML PREMIX IV SCH (23:00)
[2020-10-03] MEDS: INSULIN LISPRO 100 UNIT/ML SUBCUT SCH (23:05)
[2020-10-03] MEDS: FAMOTIDINE 20 MG/2 ML VIAL IV SCH (23:10)
[2020-10-04] MEDS ORDERED: DEXTROSE 10% 500 ML IV SCH (01:46)
[2020-10-04] MEDS: HYDROCORTISONE 100 MG VIAL IV SCH ×4 (03:14→21:00)
[2020-10-04 04:47] LABS: Basophils % 0.3 % (0.0-0.8); Eosinophils % 0.1 % (0.00-10.9); Hematocrit 30.7 VOL% (35.7-47.0); Immature Granulocytes % 1.1 %; Immature Granulocytes Absolute 0.16 #; Lymphocytes # 0.9 10*3/uL (1.4-4.0); Lymphocytes % 6.1 % (21.3-54.2); Mean Corpuscular HGB Conc 29.3 GM/DL (32-36); Mean Platelet Volume 9.5 FL (9.6-12.0); Monocytes % 3.5 % (1.7-12.7); Neutrophils % 88.9 % (38.7-73.9); Platelet Count 275 T/CUMM (130-400); Red Blood Count 3.23 MC/CUMM (3.8-5.5); Red Cell Distribution Width 16.5 % (9.3-17.3); White Blood Count 14.2 T/CUMM (4-12)
[2020-10-04 05:04] LABS: Hypochromasia 1+; Microcytosis 1+; Platelet Estimate Adequate
[2020-10-04 05:05] LABS: Alanine Aminotransferase 14 U/L (13-56); Albumin 1.8 G/DL (3.4-5.0); Alkaline Phosphatase 88 U/L (45-117); Aspartate Amino Transferase 13 U/L (0-37); Bilirubin,Total < 0.39 MG/DL (0.2-1.0); Blood Urea Nitrogen 8 MG/DL (7-18); Calcium 9.1 MG/DL (8.5-10.1); Carbon Dioxide 34 MMOL/L (21-32); Estimated Glom Filtration Rate 30 ML/MIN; Glucose 140 MG/DL (74-106); Osmolality,Calculated 276.5 MOS/KG (273-304); Potassium 3.5 MMOL/L (3.5-5.1); Sodium 139 MMOL/L (136-145); Total Protein 5.8 G/DL (6.4-8.2)
[2020-10-04] MEDS: INSULIN LISPRO 100 UNIT/ML SUBCUT SCH ×5 (05:09→23:33)
[2020-10-04] MEDS: ASPIRIN CHEW 81 MG TABLET PO SCH (08:30)
[2020-10-04] MEDS: SEVELAMER CARBONATE 800 MG TABLET PO SCH ×3 (08:30→16:27)
[2020-10-04] MEDS: carvediloL 25 MG TABLET PO SCH ×2 (08:30→20:52)
[2020-10-04] MEDS: CINACALCET 30 MG TABLET PO SCH (08:30)
[2020-10-04] MEDS: FAMOTIDINE 20 MG/2 ML VIAL IV SCH ×2 (10:03→23:33)
[2020-10-04 13:38] LABS: ABG Base Excess 8.2 MMOL/L (-2.5-2.5); ABG HCO3 33.6 MMOL/L (20-26); ABG Oxygen Saturation 88.8 % (95-100); ABG PCO2 52.8 MM HG (35-48); ABG PH 7.422 (7.35-7.45); ABG PO2 57.2 MM HG (80-95); ABG TCO2 35.3 MMOL/L (23-27); Allen Test Positive; Pt O2 Delivery Device Room Air
[2020-10-04] MEDS: LATANOPROST 0.005% OPH SOLN 2.5 ML BOTTLE BOTH EYES SCH (20:51)
[2020-10-04] MEDS: ROSUVASTATIN 20 MG TABLET PO SCH (20:52)
[2020-10-04] MEDS: TRAVOPROST 0.004% OPH SOLN 2.5 ML BOTTLE BOTH EYES SCH (20:52)
[2020-10-04] MEDS: ENOXAPARIN 30 MG/0.3 ML SYRINGE SUBCUT SCH (21:30)
[2020-10-05] MEDS: HYDROCORTISONE 100 MG VIAL IV SCH ×4 (03:45→21:01)
[2020-10-05] MEDS: INSULIN LISPRO 100 UNIT/ML SUBCUT SCH ×6 (03:45→23:35)
[2020-10-05] MEDS: ASPIRIN CHEW 81 MG TABLET PO SCH (08:57)
[2020-10-05] MEDS: CINACALCET 30 MG TABLET PO SCH (08:57)
[2020-10-05] MEDS: SEVELAMER CARBONATE 800 MG TABLET PO SCH ×3 (08:57→16:53)
[2020-10-05] MEDS: carvediloL 25 MG TABLET PO SCH ×2 (08:57→20:11)
[2020-10-05] MEDS: FAMOTIDINE 20 MG/2 ML VIAL IV SCH ×2 (12:32→23:20)
[2020-10-05] MEDS: COLLAGENASE OINT 30 GM TUBE TOP SCH (16:28)
[2020-10-05] MEDS: DESITIN 4OZ/NYSTATIN 15 GRAM MIXTURE PASTE TOP SCH ×2 (16:28→21:00)
[2020-10-05] MEDS: ROSUVASTATIN 20 MG TABLET PO SCH (20:11)
[2020-10-05] MEDS: TRAVOPROST 0.004% OPH SOLN 2.5 ML BOTTLE BOTH EYES SCH (21:00)
[2020-10-05] MEDS: LATANOPROST 0.005% OPH SOLN 2.5 ML BOTTLE BOTH EYES SCH (21:00)
[2020-10-05] MEDS: ENOXAPARIN 30 MG/0.3 ML SYRINGE SUBCUT SCH (23:20)
[2020-10-06] MEDS: HYDROCORTISONE 100 MG VIAL IV SCH ×4 (04:41→22:02)
[2020-10-06] MEDS: INSULIN LISPRO 100 UNIT/ML SUBCUT SCH ×6 (06:07→23:45)
[2020-10-06] MEDS: carvediloL 25 MG TABLET PO SCH ×2 (08:11→20:35)
[2020-10-06] MEDS: ASPIRIN CHEW 81 MG TABLET PO SCH (08:11)
[2020-10-06] MEDS: COLLAGENASE OINT 30 GM TUBE TOP SCH (08:11)
[2020-10-06] MEDS: DESITIN 4OZ/NYSTATIN 15 GRAM MIXTURE PASTE TOP SCH ×2 (08:11→20:36)
[2020-10-06] MEDS: CINACALCET 30 MG TABLET PO SCH (08:11)
[2020-10-06] MEDS: SEVELAMER CARBONATE 800 MG TABLET PO SCH ×3 (08:11→16:46)
[2020-10-06] MEDS: FAMOTIDINE 20 MG/2 ML VIAL IV SCH ×2 (12:22→22:02)
[2020-10-06] MEDS: predniSONE 10 MG TABLET PO SCH (20:35)
[2020-10-06] MEDS: ROSUVASTATIN 20 MG TABLET PO SCH (20:35)
[2020-10-06] MEDS: LATANOPROST 0.005% OPH SOLN 2.5 ML BOTTLE BOTH EYES SCH (20:36)
[2020-10-06] MEDS: TRAVOPROST 0.004% OPH SOLN 2.5 ML BOTTLE BOTH EYES SCH (20:36)
[2020-10-06] MEDS: ENOXAPARIN 30 MG/0.3 ML SYRINGE SUBCUT SCH (22:02)
[2020-10-07] MEDS: HYDROCORTISONE 100 MG VIAL IV SCH (04:12)
[2020-10-07] MEDS: INSULIN LISPRO 100 UNIT/ML SUBCUT SCH ×6 (04:12→22:27)
[2020-10-07] MEDS: SEVELAMER CARBONATE 800 MG TABLET PO SCH ×3 (12:55→18:03)
[2020-10-07] MEDS: ASPIRIN CHEW 81 MG TABLET PO SCH ×2 (12:56→16:00)
[2020-10-07] MEDS: COLLAGENASE OINT 30 GM TUBE TOP SCH ×2 (12:56→16:00)
[2020-10-07] MEDS: predniSONE 10 MG TABLET PO SCH ×3 (12:56→22:20)
[2020-10-07] MEDS: carvediloL 25 MG TABLET PO SCH ×3 (12:56→22:20)
[2020-10-07] MEDS: CINACALCET 30 MG TABLET PO SCH ×2 (12:56→16:00)
[2020-10-07] MEDS: FAMOTIDINE 20 MG/2 ML VIAL IV SCH ×3 (12:57→23:14)
[2020-10-07] MEDS: DESITIN 4OZ/NYSTATIN 15 GRAM MIXTURE PASTE TOP SCH ×3 (12:57→23:20)
[2020-10-07] MEDS: ROSUVASTATIN 20 MG TABLET PO SCH (22:20)
[2020-10-07] MEDS: ENOXAPARIN 30 MG/0.3 ML SYRINGE SUBCUT SCH (22:22)
[2020-10-07] MEDS: TRAVOPROST 0.004% OPH SOLN 2.5 ML BOTTLE BOTH EYES SCH (23:07)
[2020-10-07] MEDS: LATANOPROST 0.005% OPH SOLN 2.5 ML BOTTLE BOTH EYES SCH (23:27)
[2020-10-08] MEDS: INSULIN LISPRO 100 UNIT/ML SUBCUT SCH ×6 (00:43→21:29)
[2020-10-08] MEDS: SEVELAMER CARBONATE 800 MG TABLET PO SCH ×3 (08:39→17:04)
[2020-10-08] MEDS: ASPIRIN CHEW 81 MG TABLET PO SCH (08:39)
[2020-10-08] MEDS: predniSONE 10 MG TABLET PO SCH ×2 (08:39→21:33)
[2020-10-08] MEDS: CINACALCET 30 MG TABLET PO SCH (08:40)
[2020-10-08] MEDS: carvediloL 25 MG TABLET PO SCH ×2 (08:40→21:33)
[2020-10-08] MEDS: COLLAGENASE OINT 30 GM TUBE TOP SCH (08:41)
[2020-10-08] MEDS: DESITIN 4OZ/NYSTATIN 15 GRAM MIXTURE PASTE TOP SCH ×2 (08:41→21:25)
[2020-10-08] MEDS: FAMOTIDINE 20 MG/2 ML VIAL IV SCH ×2 (12:27→22:49)
[2020-10-08] MEDS: ROSUVASTATIN 20 MG TABLET PO SCH (21:33)
[2020-10-08] MEDS: TRAVOPROST 0.004% OPH SOLN 2.5 ML BOTTLE BOTH EYES SCH (21:35)
[2020-10-08] MEDS: LATANOPROST 0.005% OPH SOLN 2.5 ML BOTTLE BOTH EYES SCH (21:38)
[2020-10-08] MEDS: ENOXAPARIN 30 MG/0.3 ML SYRINGE SUBCUT SCH (22:45)
[2020-10-09] MEDS: INSULIN LISPRO 100 UNIT/ML SUBCUT SCH ×6 (05:28→22:13)
[2020-10-09 07:04] LABS: Basophils % 0.1 % (0.0-0.8); Eosinophils # 0.1 10*3/uL (0.0-0.87); Eosinophils % 0.7 % (0.00-10.9); Hemoglobin 9.1 GM/DL (12.0-16.0); Immature Granulocytes % 0.6 %; Immature Granulocytes Absolute 0.08 #; Lymphocytes # 0.7 10*3/uL (1.4-4.0); Lymphocytes % 5.5 % (21.3-54.2); Mean Corpuscular HGB Conc 30.3 GM/DL (32-36); Mean Platelet Volume 10.4 FL (9.6-12.0); Neutrophils % 87.1 % (38.7-73.9); Platelet Count 220 T/CUMM (130-400); Red Blood Count 3.26 MC/CUMM (3.8-5.5); Red Cell Distribution Width 15.9 % (9.3-17.3); White Blood Count 13.5 T/CUMM (4-12)
[2020-10-09 07:25] LABS: Calcium 9.4 MG/DL (8.5-10.1); Osmolality,Calculated 284.5 MOS/KG (273-304); Potassium 3.8 MMOL/L (3.5-5.1)
[2020-10-09] MEDS: CINACALCET 30 MG TABLET PO SCH (09:13)
[2020-10-09] MEDS: ASPIRIN CHEW 81 MG TABLET PO SCH (09:13)
[2020-10-09] MEDS: carvediloL 25 MG TABLET PO SCH ×2 (09:13→21:46)
[2020-10-09] MEDS: SEVELAMER CARBONATE 800 MG TABLET PO SCH ×3 (09:13→16:25)
[2020-10-09] MEDS: predniSONE 10 MG TABLET PO SCH ×2 (09:13→21:45)
[2020-10-09] MEDS: DESITIN 4OZ/NYSTATIN 15 GRAM MIXTURE PASTE TOP SCH ×2 (09:14→20:00)
[2020-10-09] MEDS: COLLAGENASE OINT 30 GM TUBE TOP SCH (09:14)
[2020-10-09] MEDS: FAMOTIDINE 20 MG/2 ML VIAL IV SCH ×2 (12:29→22:17)
[2020-10-09] MEDS: BENZONATATE 100 MG CAPSULE PO SCH ×2 (16:25→21:46)
[2020-10-09] MEDS: ROSUVASTATIN 20 MG TABLET PO SCH (21:45)
[2020-10-09] MEDS: TRAVOPROST 0.004% OPH SOLN 2.5 ML BOTTLE BOTH EYES SCH (21:47)
[2020-10-09] MEDS: ENOXAPARIN 30 MG/0.3 ML SYRINGE SUBCUT SCH (21:48)
[2020-10-09] MEDS: LATANOPROST 0.005% OPH SOLN 2.5 ML BOTTLE BOTH EYES SCH (21:49)
[2020-10-10] MEDS: INSULIN LISPRO 100 UNIT/ML SUBCUT SCH ×6 (00:43→22:26)
[2020-10-10] MEDS: ASPIRIN CHEW 81 MG TABLET PO SCH (08:51)
[2020-10-10] MEDS: BENZONATATE 100 MG CAPSULE PO SCH ×3 (08:52→21:59)
[2020-10-10] MEDS: SEVELAMER CARBONATE 800 MG TABLET PO SCH ×4 (08:52→16:56)
[2020-10-10] MEDS: predniSONE 10 MG TABLET PO SCH ×2 (08:53→22:00)
[2020-10-10] MEDS: carvediloL 25 MG TABLET PO SCH ×2 (08:53→21:59)
[2020-10-10] MEDS: DESITIN 4OZ/NYSTATIN 15 GRAM MIXTURE PASTE TOP SCH ×2 (08:56→21:46)
[2020-10-10] MEDS: COLLAGENASE OINT 30 GM TUBE TOP SCH (08:56)
[2020-10-10] MEDS: CINACALCET 30 MG TABLET PO SCH (08:59)
[2020-10-10] MEDS: FAMOTIDINE 20 MG/2 ML VIAL IV SCH ×3 (11:44→22:00)
[2020-10-10] MEDS: ROSUVASTATIN 20 MG TABLET PO SCH (21:59)
[2020-10-10] MEDS: ENOXAPARIN 30 MG/0.3 ML SYRINGE SUBCUT SCH (21:59)
[2020-10-10] MEDS: TRAVOPROST 0.004% OPH SOLN 2.5 ML BOTTLE BOTH EYES SCH (22:01)
[2020-10-10] MEDS: LATANOPROST 0.005% OPH SOLN 2.5 ML BOTTLE BOTH EYES SCH (22:27)
[2020-10-11] MEDS: INSULIN LISPRO 100 UNIT/ML SUBCUT SCH ×5 (01:31→16:56)
[2020-10-11] MEDS: predniSONE 10 MG TABLET PO SCH ×2 (09:46→23:58)
[2020-10-11] MEDS: CINACALCET 30 MG TABLET PO SCH (09:46)
[2020-10-11] MEDS: BENZONATATE 100 MG CAPSULE PO SCH ×3 (09:48→23:58)
[2020-10-11] MEDS: carvediloL 25 MG TABLET PO SCH ×2 (09:49→23:57)
[2020-10-11] MEDS: ASPIRIN CHEW 81 MG TABLET PO SCH (09:49)
[2020-10-11] MEDS: SEVELAMER CARBONATE 800 MG TABLET PO SCH ×3 (09:50→17:35)
[2020-10-11] MEDS: SODIUM HYPOCHLORITE 0.25% IRRIG 473 ML BOTTLE TOP SCH (13:08)
[2020-10-11] MEDS: DESITIN 4OZ/NYSTATIN 15 GRAM MIXTURE PASTE TOP SCH (13:08)
[2020-10-11] MEDS: COLLAGENASE OINT 30 GM TUBE TOP SCH (13:08)
[2020-10-11] MEDS: LATANOPROST 0.005% OPH SOLN 2.5 ML BOTTLE BOTH EYES SCH (21:00)
[2020-10-11] MEDS: TRAVOPROST 0.004% OPH SOLN 2.5 ML BOTTLE BOTH EYES SCH (23:54)
[2020-10-11] MEDS: ENOXAPARIN 30 MG/0.3 ML SYRINGE SUBCUT SCH (23:54)
[2020-10-11] MEDS: ROSUVASTATIN 20 MG TABLET PO SCH (23:57)
[2020-10-11] MEDS: FAMOTIDINE 20 MG TABLET PO SCH (23:57)
[2020-10-12] MEDS: INSULIN LISPRO 100 UNIT/ML SUBCUT SCH ×6 (00:01→17:07)
[2020-10-12] MEDS: BENZONATATE 100 MG CAPSULE PO SCH ×2 (09:02→17:07)
[2020-10-12] MEDS: SEVELAMER CARBONATE 800 MG TABLET PO SCH ×3 (09:02→17:07)
[2020-10-12] MEDS: CINACALCET 30 MG TABLET PO SCH (09:02)
[2020-10-12] MEDS: predniSONE 10 MG TABLET PO SCH (09:02)
[2020-10-12] MEDS: ASPIRIN CHEW 81 MG TABLET PO SCH (09:02)
[2020-10-12] MEDS: FAMOTIDINE 20 MG TABLET PO SCH (09:02)
[2020-10-12] MEDS: carvediloL 25 MG TABLET PO SCH (09:02)
[2020-10-12] MEDS: COLLAGENASE OINT 30 GM TUBE TOP SCH (09:03)
[2020-10-12] MEDS: SODIUM HYPOCHLORITE 0.25% IRRIG 473 ML BOTTLE TOP SCH (09:03)
[2020-10-12] MEDS: DESITIN 4OZ/NYSTATIN 15 GRAM MIXTURE PASTE TOP SCH ×2 (09:04)
[2020-10-12 12:14] VITALS: BP 128/49
== END 2020-10-12 17:46 | disposition swing bed (61) | DRG 637 ==
LOC: N.ED 17:10 → N.EDINP 21:33 → SUATTDRO 21:33 → N.CC 22:25 → N.TELES 10-06 18:33
PROVIDERS: ADMIT Internal Medicine; ATTEND Internal Medicine

== ENCOUNTER 2020-10-17 08:49 | Observation (INO) ==
[2020-10-17] MEDS ORDERED: SODIUM CHLORIDE 0.9% 1,000 ML IV STA (09:39)
[2020-10-17] MEDS ORDERED: DEXTROSE 50% 25 GM/50 ML SYRINGE IV ONE (10:11)
[2020-10-17] MEDS ORDERED: DEXTROSE 50% 25 GM/50 ML VIAL IV STA (10:17)
[2020-10-17 10:25] LABS: Basophils # 0.1 10*3/uL (0.0-0.2); Basophils % 0.3 % (0.0-0.8); Eosinophils # 0.1 10*3/uL (0.0-0.87); Eosinophils % 0.8 % (0.00-10.9); Hematocrit 31.1 VOL% (35.7-47.0); Hemoglobin 9.3 GM/DL (12.0-16.0); Immature Granulocytes % 0.8 %; Immature Granulocytes Absolute 0.14 #; Lymphocytes % 10.7 % (21.3-54.2); Mean Corpuscular HGB Conc 29.9 GM/DL (32-36); Mean Corpuscular Volume 92.3 FL (87-102); Mean Platelet Volume 10.6 FL (9.6-12.0); Monocytes % 5.2 % (1.7-12.7); Neutrophils % 82.2 % (38.7-73.9); Platelet Count 217 T/CUMM (130-400); Red Blood Count 3.37 MC/CUMM (3.8-5.5); Red Cell Distribution Width 15.6 % (9.3-17.3); White Blood Count 18.5 T/CUMM (4-12)
[2020-10-17 10:31] LABS: PT Patient Result 11.6 SECS (10.5-12.0); Partial Thromboplastin Time 25.4 SECS (23.9-33.8)
[2020-10-17 10:37] LABS: Urine Appearance Turbid (Clear); Urine Color Brown (Yellow)
[2020-10-17 10:38] LABS: Bilirubin,Urine Negative (Negative); Blood, Urine 2+ mg/dL (Negative); Glucose,Urine (UA) Negative (Negative); Ketones,Urine Negative (Negative); Nitrite,Urine Negative (Negative); Protein,Urine 3+ MG/DL; Urine Urobilinogen < 2.0 EU/DL (0.2-1.0)
[2020-10-17 10:44] LABS: RBC,Urine Rare /HPF (0-4)
[2020-10-17 10:45] LABS: Amorphous Crystals,Urine Many /HPF (Few); Bacteria,Urine 4+ /HPF (Few)
[2020-10-17 10:46] LABS: Alanine Aminotransferase 16 U/L (13-56); Albumin 2.1 G/DL (3.4-5.0); Alkaline Phosphatase 89 U/L (45-117); Aspartate Amino Transferase 13 U/L (0-37); Blood Urea Nitrogen 25 MG/DL (7-18); Calcium 9.7 MG/DL (8.5-10.1); Carbon Dioxide 37 MMOL/L (21-32); Estimated Glom Filtration Rate 14 ML/MIN; Osmolality,Calculated 283.1 MOS/KG (273-304); Potassium 3.5 MMOL/L (3.5-5.1); Sodium 142 MMOL/L (136-145); Thyroid Stimulating Hormone 0.195 uIU/ml (0.358-3.74); Total Protein 5.7 G/DL (6.4-8.2)
[2020-10-17 10:48] LABS: Glucose 49 MG/DL (74-106)
[2020-10-17] MEDS ORDERED: cefTRIAXone 1,000 MG in SODIUM CHLORIDE 0.9% 100 ML IV STA (11:53)
[2020-10-17] MEDS ORDERED: ACETAMINOPHEN 325 MG TABLET PO PRN (13:10)
[2020-10-17] MEDS ORDERED: ONDANSETRON 4 MG/2 ML VIAL IV PRN (13:10)
[2020-10-17] MEDS ORDERED: GLUCAGON 1 MG VIAL IM PRN (13:10)
[2020-10-17] MEDS ORDERED: DEXTROSE 50% 25 GM/50 ML VIAL IV PRN (13:10)
[2020-10-17] MEDS: DEXTROSE 5% NACL 0.45% 1,000 ML IV SCH (14:47)
[2020-10-17] MEDS ORDERED: traMADol 50 MG TABLET PO PRN (16:50)
[2020-10-17] MEDS ORDERED: diphenhydrAMINE CAP 25 MG CAPSULE PO PRN (17:14)
[2020-10-17] MEDS: INSULIN REGULAR 100 UNIT/ML SUBCUT SCH ×2 (17:16→17:55)
[2020-10-17] MEDS: SEVELAMER CARBONATE 800 MG TABLET PO SCH (17:31)
[2020-10-17] MEDS ORDERED: NON-FORMULARY MEDICATION (Omeprazole 20 mg Capsule,Delayed Release(Dr/Ec)) PO SCH (21:00)
[2020-10-17] MEDS: GABAPENTIN 300 MG CAPSULE PO SCH (22:54)
[2020-10-17] MEDS: DESITIN 4OZ/NYSTATIN 15 GRAM MIXTURE PASTE TOP SCH (22:55)
[2020-10-17] MEDS: FAMOTIDINE 20 MG TABLET PO SCH (22:55)
[2020-10-17] MEDS: ROSUVASTATIN 20 MG TABLET PO SCH (22:56)
[2020-10-17] MEDS: DOCUSATE SODIUM 100 MG CAPSULE PO SCH (22:59)
[2020-10-17] MEDS: TRAVOPROST 0.004% OPH SOLN 2.5 ML BOTTLE BOTH EYES SCH (23:05)
[2020-10-17] MEDS: LATANOPROST 0.005% OPH SOLN 2.5 ML BOTTLE BOTH EYES SCH (23:06)
[2020-10-18] MEDS: INSULIN REGULAR 100 UNIT/ML SUBCUT SCH ×4 (01:22→17:43)
[2020-10-18] MEDS: SODIUM CHLORIDE 0.9% 1,000 ML IV SCH ×2 (03:01→06:20)
[2020-10-18] MEDS: ENOXAPARIN 30 MG/0.3 ML SYRINGE SUBCUT SCH (08:53)
[2020-10-18] MEDS: CITALOPRAM 20 MG TABLET PO SCH (08:54)
[2020-10-18] MEDS: DOCUSATE SODIUM 100 MG CAPSULE PO SCH ×2 (08:54→22:28)
[2020-10-18] MEDS: SEVELAMER CARBONATE 800 MG TABLET PO SCH ×3 (08:54→16:55)
[2020-10-18] MEDS: CINACALCET 30 MG TABLET PO SCH (08:54)
[2020-10-18] MEDS: GABAPENTIN 300 MG CAPSULE PO SCH ×3 (08:54→22:28)
[2020-10-18] MEDS: PANTOPRAZOLE 40 MG TABLET PO SCH (08:54)
[2020-10-18] MEDS: FAMOTIDINE 20 MG TABLET PO SCH ×2 (08:54→22:26)
[2020-10-18] MEDS: ASPIRIN CHEW 81 MG TABLET PO SCH (08:54)
[2020-10-18] MEDS: SODIUM HYPOCHLORITE 0.25% IRRIG 473 ML BOTTLE TOP SCH (08:55)
[2020-10-18] MEDS: DESITIN 4OZ/NYSTATIN 15 GRAM MIXTURE PASTE TOP SCH ×2 (08:55→22:31)
[2020-10-18] MEDS ORDERED: cefTRIAXone 1,000 MG in SODIUM CHLORIDE 0.9% 100 ML IV SCH (09:00)
[2020-10-18] MEDS: DEXTROSE 5% NACL 0.45% 1,000 ML IV SCH (11:08)
[2020-10-18] MEDS: COLLAGENASE OINT 30 GM TUBE TOP SCH (16:55)
[2020-10-18] MEDS: FLUTICASONE 50 MCG NASAL SPRAY 16 GM BOTTLE BOTH NARES SCH (17:43)
[2020-10-18] MEDS: ROSUVASTATIN 20 MG TABLET PO SCH (22:26)
[2020-10-18] MEDS: LATANOPROST 0.005% OPH SOLN 2.5 ML BOTTLE BOTH EYES SCH (22:31)
[2020-10-18] MEDS: TRAVOPROST 0.004% OPH SOLN 2.5 ML BOTTLE BOTH EYES SCH (22:32)
[2020-10-19] MEDS: INSULIN REGULAR 100 UNIT/ML SUBCUT SCH ×5 (01:39→23:43)
[2020-10-19 07:58] LABS: Calcium 9.3 MG/DL (8.5-10.1); Osmolality,Calculated 270.2 MOS/KG (273-304)
[2020-10-19 08:40] LABS: Basophils # 0.1 10*3/uL (0.0-0.2); Basophils % 0.6 % (0.0-0.8); Eosinophils # 0.1 10*3/uL (0.0-0.87); Eosinophils % 1.1 % (0.00-10.9); Hematocrit 30.9 VOL% (35.7-47.0); Hemoglobin 9.3 GM/DL (12.0-16.0); Immature Granulocytes % 0.8 %; Immature Granulocytes Absolute 0.09 #; Lymphocytes # 1.9 10*3/uL (1.4-4.0); Lymphocytes % 15.9 % (21.3-54.2); Mean Corpuscular HGB Conc 30.1 GM/DL (32-36); Mean Corpuscular Volume 91.4 FL (87-102); Mean Platelet Volume 10.8 FL (9.6-12.0); Monocytes % 7.5 % (1.7-12.7); Neutrophils % 74.1 % (38.7-73.9); Platelet Count 174 T/CUMM (130-400); Red Blood Count 3.38 MC/CUMM (3.8-5.5); Red Cell Distribution Width 15.2 % (9.3-17.3); White Blood Count 11.9 T/CUMM (4-12)
[2020-10-19] MEDS: PANTOPRAZOLE 40 MG TABLET PO SCH (08:48)
[2020-10-19] MEDS: GABAPENTIN 300 MG CAPSULE PO SCH ×3 (08:48→20:33)
[2020-10-19] MEDS: ENOXAPARIN 30 MG/0.3 ML SYRINGE SUBCUT SCH (08:48)
[2020-10-19] MEDS: FAMOTIDINE 20 MG TABLET PO SCH ×2 (08:48→20:33)
[2020-10-19] MEDS: SEVELAMER CARBONATE 800 MG TABLET PO SCH ×3 (08:48→17:28)
[2020-10-19] MEDS: SODIUM HYPOCHLORITE 0.25% IRRIG 473 ML BOTTLE TOP SCH (08:49)
[2020-10-19] MEDS: CITALOPRAM 20 MG TABLET PO SCH (08:49)
[2020-10-19] MEDS: DOCUSATE SODIUM 100 MG CAPSULE PO SCH ×2 (08:49→20:33)
[2020-10-19] MEDS: ASPIRIN CHEW 81 MG TABLET PO SCH (08:49)
[2020-10-19] MEDS: FLUTICASONE 50 MCG NASAL SPRAY 16 GM BOTTLE BOTH NARES SCH (08:49)
[2020-10-19] MEDS: DESITIN 4OZ/NYSTATIN 15 GRAM MIXTURE PASTE TOP SCH ×2 (08:50→20:33)
[2020-10-19] MEDS: cefTRIAXone 1,000 MG in SODIUM CHLORIDE 0.9% 100 ML IM SCH (08:50)
[2020-10-19] MEDS: CINACALCET 30 MG TABLET PO SCH (08:50)
[2020-10-19] MEDS: COLLAGENASE OINT 30 GM TUBE TOP SCH (08:50)
[2020-10-19] MEDS: ROSUVASTATIN 20 MG TABLET PO SCH (20:33)
[2020-10-19] MEDS: TRAVOPROST 0.004% OPH SOLN 2.5 ML BOTTLE BOTH EYES SCH (20:33)
[2020-10-19] MEDS: LATANOPROST 0.005% OPH SOLN 2.5 ML BOTTLE BOTH EYES SCH (20:33)
[2020-10-20] MEDS: INSULIN REGULAR 100 UNIT/ML SUBCUT SCH ×2 (06:16→11:53)
[2020-10-20] MEDS: ASPIRIN CHEW 81 MG TABLET PO SCH (09:46)
[2020-10-20] MEDS: CITALOPRAM 20 MG TABLET PO SCH (09:46)
[2020-10-20] MEDS: FAMOTIDINE 20 MG TABLET PO SCH (09:46)
[2020-10-20] MEDS: SEVELAMER CARBONATE 800 MG TABLET PO SCH ×2 (09:46→11:54)
[2020-10-20] MEDS: DOCUSATE SODIUM 100 MG CAPSULE PO SCH (09:46)
[2020-10-20] MEDS: PANTOPRAZOLE 40 MG TABLET PO SCH (09:46)
[2020-10-20] MEDS: CINACALCET 30 MG TABLET PO SCH (09:46)
[2020-10-20] MEDS: ENOXAPARIN 30 MG/0.3 ML SYRINGE SUBCUT SCH (09:46)
[2020-10-20] MEDS: GABAPENTIN 300 MG CAPSULE PO SCH (09:47)
[2020-10-20] MEDS: SODIUM HYPOCHLORITE 0.25% IRRIG 473 ML BOTTLE TOP SCH (09:47)
[2020-10-20] MEDS: FLUTICASONE 50 MCG NASAL SPRAY 16 GM BOTTLE BOTH NARES SCH (09:47)
[2020-10-20] MEDS: COLLAGENASE OINT 30 GM TUBE TOP SCH (09:47)
[2020-10-20] MEDS: DESITIN 4OZ/NYSTATIN 15 GRAM MIXTURE PASTE TOP SCH (09:47)
[2020-10-20] MEDS: cefTRIAXone 1,000 MG in SODIUM CHLORIDE 0.9% 100 ML IM SCH (09:48)
[2020-10-20 11:39] VITALS: BP 134/41
== END 2020-10-20 12:58 ==
LOC: EDUNIT# → N.EDINP 08:49 → N.ED 08:49 → N.EDINP 14:06 → N.TELES 14:28
PROVIDERS: ADMIT Internal Medicine; ATTEND Internal Medicine